=== PATIENT | male | born 1980 | race Caucasian/White ===

== ENCOUNTER 2017-04-10 14:08 | Inpatient (IN) | payer OTHER ==
[2017-04-10] MEDS ORDERED: NACL 0.9% 1000 ML 1,000 ML IV ONE (14:52)
[2017-04-10] MEDS ORDERED: NORMODYNE IV ONE ×2 (14:54→15:21)
--- NOTE | 2017-04-10 15:26 | Emergency Department Report ---
ED Seizure HPI - General Chief Complaint: Seizure Stated Complaint: SEIZURE Time Seen by Provider: 04/10/17 14:52 Source: patient, EMS Mode of arrival: Stretcher Limitations: No Limitations - History of Present Illness Initial Comments: Patient is a 36-year-old male with no known history of seizure here with first time seizure. He presented emergency Department post ictal and combative. The time I evaluated him the patient was somnolent but able to answer questions. He has no complaints currently. He has a small tongue laceration to the left lateral edge of his tongue. His lips appear very dry. He is hypertensive and tachycardic. MD Complaint: seizure -: Sudden Description of Episode: tonic-clonic movement, post-event confusion Seizure History: none Place: home Possible Precipitating Event: other (unknown) Associated Symptoms: denies other symptoms Treatments Prior to Arrival: none - Related Data Home Medications Medication Instructions Recorded Confirmed Last Taken No Known Home Medications [No 04/10/17 04/10/17 Unknown Reported Home Medications] Allergies Allergy/AdvReac Type Severity Reaction Status Date / Time No Known Allergies Allergy Unverified 04/10/17 15:20 ED Review of Systems ROS: Stated complaint: SEIZURE Other details as noted in HPI Constitutional: denies: chills, fever Eyes: denies: eye pain, eye discharge, vision change ENT: denies: ear pain, throat pain Respiratory: denies: cough, shortness of breath, wheezing Cardiovascular: denies: chest pain, palpitations Endocrine: no symptoms reported Gastrointestinal: denies: abdominal pain, nausea, diarrhea Genitourinary: denies: urgency, dysuria Musculoskeletal: denies: back pain, joint swelling, arthralgia Skin: denies: rash, lesions Neurological: denies: headache, weakness, paresthesias Psychiatric: denies: anxiety, depression Hematological/Lymphatic: denies: easy bleeding, easy bruising ED Past Medical Hx - Past Medical History Previous Medical History?: No - Surgical History Past Surgical History?: No - Social History Smoking Status: Current Every Day Smoker Substance Use Type: Marijuana - Medications Home Medications: Home Medications Medication Instructions Recorded Confirmed Last Taken Type No Known Home Medications [No 04/10/17 04/10/17 Unknown History Reported Home Medications] ED Physical Exam - General Limitations: No Limitations General appearance: alert, in no apparent distress - Head Head exam: Present: atraumatic, normocephalic - Eye Eye exam: Present: normal appearance - ENT ENT exam: Present: mucous membranes dry, other (left lateral tongue laceration) - Neck Neck exam: Present: normal inspection - Respiratory Respiratory exam: Present: normal lung sounds bilaterally. Absent: respiratory distress - Cardiovascular Cardiovascular Exam: Present: normal rhythm, tachycardia. Absent: systolic murmur, diastolic murmur, rubs, gallop - GI/Abdominal GI/Abdominal exam: Present: soft. Absent: tenderness, guarding, rebound - Rectal Rectal exam: Present: deferred - Extremities Exam Extremities exam: Present: normal inspection - Back Exam Back exam: Present: normal inspection - Neurological Exam Neurological exam: Present: alert (somnolent but will answer questions). Absent : oriented X3 (oriented 2) - Psychiatric Psychiatric exam: Present: normal affect, normal mood - Skin Skin exam: Present: warm, dry, intact, normal color. Absent: rash ED Course Vital Signs 04/10/17 04/10/17 15:06 15:55 Temperature 97.6 F Pulse Rate 89 100 H Respiratory 18 Rate Blood Pressure 211/155 236/156 O2 Sat by Pulse 95 Oximetry ED Medical Decision Making - Lab Data Result diagrams: 04/10/17 15:11 04/10/17 15:11 - EKG Data -: EKG Interpreted by Nd - EKG Data 04/10/17 15:25 Sinus rhythm rate of 98 normal axis prolonged QTC of 518 likely LVH - Medical Decision Making Patient is a young 36-year-old with no medical history here with first-time seizure. He presents significant with significant hypertension. He is resolving his postictal status right now. Plan head CT labs chest x-ray and urinalysis and we'll reassess. Patient has a normal head CT. His blood pressure remains minimally elevated. He is received 2 doses of IV labetalol with mild improvement. His creatinine is 4.6 and he has no evidence or history of chronic renal insufficiency according to the patient. He is not taking any blood pressure medications. Plan is to admit the patient for hypertensive encephalopathy and emergency. Plan to start a Cardene drip. I discussed the case with Dr. Dee from nephrology. They will see the patient in consult. Critical Care Time: Yes (60 minutes) Critical care time in (mins) excluding proc time.: 60 Critical care attestation.: If time is entered above; I have spent that time in minutes in the direct care of this critically ill patient, excluding procedure time. ED Disposition Clinical Impression: Hypertensive emergency, Seizure Disposition: -09 OP ADMIT IP TO THIS HOSP Is pt being admited?: Yes Condition: Stable Instructions: Hypertension (ED) Referrals: PRIMARY CARE, [Primary Care Provider] - 3-5 Days
[2017-04-10 15:39] LABS: Hemoglobin 10.8 gm/dl (11.8-15.2); Mean Corpuscular HGB Conc 33 % (32-34); Mean Corpuscular Hemoglobin 26 pg (28-32); Mean Corpuscular Volume 79 fl (84-94); Red Blood Count 4.16 M/mm3 (3.65-5.03); Red Cell Distribution Width 16.4 % (13.2-15.2); White Blood Count 4.2 K/mm3 (4.5-11.0)
[2017-04-10 15:45] LABS: Albumin 3.8 g/dL (3.9-5); Albumin/Globulin Ratio 0.8 %; BUN/Creatinine Ratio 7.39; Bilirubin,Total 0.8 mg/dL (0.1-1.2); Calcium 9.3 mg/dL (8.4-10.2); Chloride 100.5 mmol/L (98-107); Potassium 3.2 mmol/L (3.6-5.0); Total Protein 8.8 g/dL (6.3-8.2)
[2017-04-10 16:15] LABS: Platelet Count 69 K/mm3 (140-440)
[2017-04-10 16:35] LABS: Basophils % (Manual) 0 % (0.0-1.8); Blastocytes % (Manual) 0 %
[2017-04-10 16:36] LABS: Anisocytosis 1+; Diff Status Complete; Elliptocytes 1+; Platelet Estimate Consistent w Auto
--- NOTE | 2017-04-10 17:56 | Cat Scan Report ---
FINAL REPORT PROCEDURE: CT HEAD/BRAIN WO CON TECHNIQUE: Computerized tomography of the head was performed without contrast material. HISTORY: Seizure COMPARISON: No prior studies are available for comparison. FINDINGS: Mild changes of chronic sinusitis are seen. No calvarial fracture is seen. The cerebral ventricles are normal in size. No acute intracranial hemorrhage or mass effect is seen. No CVA is seen. IMPRESSION: No intracranial abnormality is seen.
[2017-04-10] MEDS ORDERED: DULCOLAX PR PRN (18:03)
[2017-04-10] MEDS ORDERED: MILK OF MAGNESIA PO PRN (18:03)
[2017-04-10] MEDS ORDERED: ALUM-MAG HYDROX-SIMETH 200-200-20MG/5ML PO PRN (18:03)
[2017-04-10] MEDS ORDERED: DUONEB *Not for PRN Use IH (18:03)
[2017-04-10] MEDS ORDERED: PROVENTIL IH PRN (18:26)
--- NOTE | 2017-04-10 18:39 | Admit Criteria Form ---
Admission Criteria Documentation: HYPERTENSION Clinical Indications for Admission to Inpatient Care ( atka/check or initial the applicable condition/criteria) Admission is indicated for 1 or more of the following(1)(2)(3)(4)(5)(6)(7)(8)(9) (10): [X ]I. Hypertensive emergency, with evidence of acute and progressing target organ disease as indicated by 1 or more of the following: [ ]a) Hypertensive encephalopathy (e.g., confusion, altered mental status) (11) [ ]b) Cerebral infarction [ ]c) Intracranial hemorrhage [ ]d) Myocardial ischemia or infarction [ ]e) Heart failure (eg. Pulmonary edema) [ ]f) Aortic dissection [ ]g) Increased creatinine (new) with reduction of more than 50% in estimated glomerular filtration rate from baseline [X ]h) Seizure [ ]i) Papilledema [ ]j) Retinal hemorrhage [ ]k) Microangiopathic hemolytic anemia [ ]l) Other significant finding secondary to hypertension [ ]II. Adrenergic or sympathomimetic crisis (e.g., severe hypertension due to pheochromocytoma crisis, cocaine, phencyclindine, or amphetamine intoxication, or clonidine withdrawal) [ ]III. Severe hypertension (SBP greater than 180 mmHg or DBP greater than 110 mmHg or greater than the 95th percentile for age, gender, and height in pediatric patients) that cannot be controlled (e.g., to SBP less than 160 mmHg and DBP less than 100 mmHg in adults) by treatment with oral medication in emergency department or observation care (12) Extended stay beyond goal length of staymay be needed for(21)(22): [ ]a) Persistent hypertensive encephalopathy [ ]b) Continuation of pulmonary edema [ ]c) Recurring or persistent severe hypertension [ ]d) Target organ damage (eg, angina, stroke, aortic dissection) The original [employer] content created by [employer] has been revised. The portions of the content which have been revised are identified through the use of italic text or in bold, and [employer] has neither reviewed nor approved the modified material. All other unmodified content is copyright [employer]. Please see references footnoted in the original [employer] edition 2016 Admission Criteria Met: Yes
[2017-04-10] MEDS: CARDENE 50 MG in NACL 0.9% 250ML 230 ML IV SCH (18:55)
--- NOTE | 2017-04-10 19:17 | History and Physical Report ---
History of Present Illness Date of admission: 04/10/17 18:53 Chief complaint: I had a seizure History of present illness: 36 YO Male with HTN, Nicotine Dependence presents to ED for evaluation. Pt experienced a witnessed seizure prior to transport to ED as per patient . Pt denies history of seizure. Pt seen and evaluated in ED and found to be confused and lethargic. Pt able to protect his airway. Pt found to have BP of 235/156. Pt admitted to ICU and cardene drip initiated. Pt deny reports of fever, chills, CP, Palpitations, NVD, Trauma, bowel/bladder incontinence, difficulty breathing, productive cough, leg swelling, calf pain, prolonged immobility/travel, individual/family history of DVT/PE. Past History Past Medical History: hypertension Past Surgical History: No surgical history, Other (reviewed) Social history: , lives with family Family history: no significant family history, other (reviewed) Medications and Allergies Allergies Allergy/AdvReac Type Severity Reaction Status Date / Time No Known Allergies Allergy Unverified 04/10/17 15:20 Home Medications Medication Instructions Recorded Confirmed Last Taken Type No Known Home Medications [No 04/10/17 04/10/17 Unknown History Reported Home Medications] Active Meds: Active Medications Al Hydrox/Mg Hydrox/Simethicone (Alum-Mag Hydrox-Simeth [id number]/5ml) 30 ml PO Q4H PRN PRN Reason: Indigestion Albuterol (Proventil) 2.5 mg IH Q4H PRN PRN Reason: Shortness Of Breath Bisacodyl (Dulcolax) 10 mg [place] QDAY PRN PRN Reason: constipation unrelieved by MOM Nicardipine HCl 50 mg/ Sodium (Chloride) 250 mls @ 12.5 mls/hr IV TITR ROSIE; 2.5 MG/HR PRN Reason: Protocol Last Admin: 04/10/17 18:55 Dose: 2.5 mg/hr, 12.5 mls/hr Magnesium Hydroxide (Milk Of Magnesia) 30 ml PO Q4H PRN PRN Reason: Constipation Review of Systems All systems: negative Constitutional: other (seizure) Exam - Constitutional Vitals: Temp Pulse Resp BP Pulse Ox 97.6 F 100 H 18 236/156 95 04/10/17 15:06 04/10/17 15:55 04/10/17 15:06 04/10/17 15:55 04/10/17 15:06 General appearance: Present: mild distress - EENT Eyes: Present: PERRL ENT: hearing intact, clear oral mucosa - Neck Neck: Present: supple, normal ROM - Respiratory Respiratory effort: normal Respiratory: bilateral: CTA - Extremities Extremities: pulses symmetrical, No edema Peripheral Pulses: within normal limits - Abdominal General gastrointestinal: Present: soft, non-tender, non-distended, normal bowel sounds Male genitourinary: Present: normal - Integumentary Integumentary: Present: clear, warm, dry - Musculoskeletal Musculoskeletal: generalized weakness - Psychiatric Psychiatric: no intact judgment & insight - Neurologic Neurologic: CNII-XII intact, other (cognitive slowing, lethargic) Results - Labs CBC & Chem 7: 04/10/17 15:11 04/10/17 15:11 Assessment and Plan - Patient Problems (1) Hypertensive emergency Current Visit: Yes Status: Acute Plan to address problem: Admit to ICU, Initiate cardene drip, Goal systolic BP overnight 160-185, monitor uop q shift, neuro checks, supportive care. The high probability of a clinically significant, sudden or life threatening deterioration of the [cardiac, renal] system(s) required my full and direct attention, intervention and personal management. The aggregate critical care time was [65] minutes. This time is in addition to time spent performing reported procedures but includes the following: [x] Data Review and interpretation [x] Patient assessment and monitoring of vital signs [x] Documentation [x] Medication orders and management (2) Hypertensive encephalopathy syndrome Current Visit: Yes Status: Acute Plan to address problem: CT head, treat hypertensive emergency, supportive care. (3) ARF (acute renal failure) with tubular necrosis Current Visit: Yes Status: Acute Plan to address problem: Nephrology consulted in ED, Urine electrolytes, renal ultrasound (4) Nicotine dependence Current Visit: Yes Status: Acute Qualifiers: Nicotine product type: N Substance use status: S Plan to address problem: Pt counseled, Pt refused to pick quit date (5) Seizure Current Visit: Yes Status: Acute Plan to address problem: Continue current therapy, keppra BID, (6) DVT prophylaxis Current Visit: Yes Status: Acute
[2017-04-10 20:15] LABS: Urine Drugs of Abuse Note Disclamer
[2017-04-10] MEDS: KEPPRA PO SCH ×2 (20:18→22:10)
[2017-04-10] MEDS ORDERED: KEPPRA PO ONE (20:20)
[2017-04-10 20:38] LABS: Bilirubin,Urine NEG (Negative); Blood,Urine SM (Negative); Ketones,Urine NEG (Negative); Leukocyte Esterase,Urine MOD (Negative); Mucus,Urine FEW /HPF; Nitrite,Urine NEG (Negative); Urobilinogen,Urine < 2.0 mg/dL (<2.0)
[2017-04-11 08:36] LABS: BUN/Creatinine Ratio 8.04; Calcium 9.8 mg/dL (8.4-10.2); Chloride 100.7 mmol/L (98-107); Potassium 3.2 mmol/L (3.6-5.0)
--- NOTE | 2017-04-11 08:39 | Consultation ---
History of Present Illness - Reason for Consult Consult date: 04/11/17 acute renal failure - History of Present Illness Mr. Cao is a 36yo without past medical history who presented to the ED with seizure activity. In the ED, his blood pressure was 230s/110s. Labs were notable for SCr 4.6mg/dL. He has been admitted to the ICU for further management. Mr. Cao denies a prior history of kidney disease and hypertension. He was last seen by a health care provider approximately one year ago. However, he reports that labs were not collected at that time. He denies a prior history of seizure disorder. Family history notable for hypertension; he denies family hx of kidney disease, NSAID use, epistaxis, hemotypsis, hematuria. Past History Past Medical History: No medical history Past Surgical History: No surgical history, Other (reviewed) Social history: , lives with family Family history: no significant family history, other (reviewed) Medications and Allergies Allergies Allergy/AdvReac Type Severity Reaction Status Date / Time No Known Allergies Allergy Unverified 04/10/17 15:20 Home Medications Medication Instructions Recorded Confirmed Last Taken Type No Known Home Medications [No 04/10/17 04/10/17 Unknown History Reported Home Medications] Active Meds: Active Medications Albuterol (Proventil) 2.5 mg IH Q4H PRN PRN Reason: Shortness Of Breath Bisacodyl (Dulcolax) 10 mg [place] QDAY PRN PRN Reason: constipation unrelieved by MOM Nicardipine HCl 50 mg/ Sodium (Chloride) 250 mls @ 12.5 mls/hr IV TITR ROSIE; 2.5 MG/HR PRN Reason: Protocol Last Titration: 04/11/17 06:04 Dose: 5 mg/hr, 25 mls/hr Levetiracetam (Keppra) 500 mg PO BID ROSIE Last Admin: 04/10/17 22:10 Dose: 500 mg Review of Systems Constitutional: no fever, no chills, no sweats Cardiovascular: no chest pain, no shortness of breath Respiratory: no cough Gastrointestinal: no abdominal pain, no nausea, no vomiting, no diarrhea Neurological: seizures Exam - Vital Signs Vital signs: Vital Signs Pulse Resp Pulse Ox 95 H 38 H 93 04/10/17 14:30 04/10/17 14:30 04/10/17 14:30 - General Appearance General appearance: well-developed, well-nourished EENT: ATNC Respiratory: Clear to Ascultation Heart: regular, S1S2 Gastrointestinal: Present: normal. Absent: tenderness, distended Integumentary: no rash Musculoskeletal: Present: other (no edema) Psychiatric: mood/affect appropriate, cooperative Results - Lab Results 04/10/17 15:11 04/11/17 07:54 Most recent lab results Calcium 9.8 mg/dL (8.4-10.2) 04/11/17 07:54 Urine Creatinine 184.1 mg/dL (0.1-20.0) H 04/10/17 20:04 Urine Sodium 49 mEq/L 04/10/17 20:04 Assessment and Plan IMPRESSION * Acute kidney injury vs underlying chronic kidney disease * Seizure disorder, new onset * Accelerated hypertension * Hypokalemia PLAN: * Cardene gtt per primary team * Will start oral antiHTN medications * Renal u/s pending * Will obtain renin:ricky * Obtain serologic work up * 24h urine CrCl and protein ordered * Avoid potential nephrotoxins. Dose medications for renal function
--- NOTE | 2017-04-11 08:41 | XRay Report ---
ROUTINE CHEST, TWO VIEWS: Hypertension, seizures. PA and lateral views demonstrate the heart and mediastinal contour to be of normal size and shape. The lungs are clear and fully expanded and the soft tissues and bony structures are normal. IMPRESSION: Normal study.
--- NOTE | 2017-04-11 09:03 | Consultation ---
History of Present Illness - Reason for Consult Consult date: 04/11/17 Hypertensive Emergency Requesting physician: ARRON RIVERA - History of Present Illness 36 y/o male, presented to ED with Emergency room with seizure. Found to be hypertensive. STarted on cardene drip and transferred to the unit. Past History Past Medical History: hypertension Past Surgical History: No surgical history, Other (reviewed) Social history: , lives with family Family history: no significant family history, other (reviewed) Medications and Allergies Allergies Allergy/AdvReac Type Severity Reaction Status Date / Time No Known Allergies Allergy Unverified 04/10/17 15:20 Home Medications Medication Instructions Recorded Confirmed Last Taken Type No Known Home Medications [No 04/10/17 04/10/17 Unknown History Reported Home Medications] Active Meds: Active Medications Albuterol (Proventil) 2.5 mg IH Q4H PRN PRN Reason: Shortness Of Breath Bisacodyl (Dulcolax) 10 mg [place] QDAY PRN PRN Reason: constipation unrelieved by MOM Carvedilol (Coreg) 12.5 mg PO BID ROSIE Hydralazine HCl (Apresoline) 25 mg PO Q8HR ROSIE Nicardipine HCl 50 mg/ Sodium (Chloride) 250 mls @ 12.5 mls/hr IV TITR ROSIE; 2.5 MG/HR PRN Reason: Protocol Last Titration: 04/11/17 06:04 Dose: 5 mg/hr, 25 mls/hr Levetiracetam (Keppra) 500 mg PO BID [facility] Last Admin: 04/10/17 22:10 Dose: 500 mg Nifedipine (Procardia Xl) 60 mg PO QDAY ROSIE Review of Systems All systems: negative Exam - Constitutional Vitals: Temp Pulse Resp BP Pulse Ox 98.3 F 85 20 220/121 94 04/11/17 08:00 04/11/17 03:00 04/11/17 03:00 04/11/17 03:00 04/11/17 03:00 General appearance: Present: no acute distress - EENT Eyes: Present: PERRL, EOM intact ENT: hearing intact, clear oral mucosa - Neck Neck: Present: supple, normal ROM - Respiratory Respiratory effort: normal Respiratory: bilateral: CTA - Cardiovascular Rhythm: regular Heart Sounds: Present: S1 & S2 - Extremities Extremities: no ischemia - Abdominal General gastrointestinal: Present: soft, non-tender, normal bowel sounds Male genitourinary: Present: deferred - Rectal Rectal Exam: deferred - Musculoskeletal Musculoskeletal: strength equal bilaterally - Psychiatric Psychiatric: appropriate mood/affect Results - Labs CBC & Chem 7: 04/10/17 15:11 04/11/17 07:54 Labs: Abnormal lab results 04/10/17 04/10/17 04/11/17 Range/Units 20:04 20:04 07:54 Potassium 3.2 L (3.6-5.0) mmol/L BUN 33 H (9-20) mg/dL Creatinine 4.1 H (0.8-1.5) mg/dL Glucose 101 H (75-100) mg/dL Urine pH 8.0 H (5.0-7.0) Urine WBC (Auto) 19.0 H (0.0-6.0) /HPF Urine Creatinine 184.1 H (0.1-20.0) mg/dL - Imaging and Cardiology Chest x-ray: image reviewed CT Scan - head: report reviewed Assessment and Plan 36 y/o male with hypertensive Emergency and acute vs chronic renal failure. 1. Agree with Cardene drip and starting PO medication 2. Follow up renal recs 3. Follow up renal ultrasound 4. Screening for causes of secondary hypertension. CCT 31 minutes.
--- NOTE | 2017-04-11 10:00 | Ultrasound Report ---
Renal ultrasound: Renal failure. The right renal length is 11.1 cm and the left renal length is 10 cm. The parenchyma of both kidneys appears normal in thickness. Both kidneys appear generally echogenic. No focal mass and no hydronephrosis nor calcification identified.Imaging of the urinary bladder is unremarkable. Impression: Echogenic kidneys consistent with medical renal disease.
[2017-04-11] MEDS: COREG PO SCH ×2 (10:36→22:02)
[2017-04-11] MEDS: PROCARDIA XL PO SCH (10:36)
[2017-04-11] MEDS: APRESOLINE PO SCH ×3 (10:36→22:02)
[2017-04-11] MEDS: CARDENE 50 MG in NACL 0.9% 250ML 230 ML IV SCH (10:37)
[2017-04-11] MEDS: KEPPRA PO SCH ×2 (10:37→22:01)
[2017-04-11] MEDS ORDERED: ZOFRAN ONE (10:47)
[2017-04-11] MEDS ORDERED: ZOFRAN IV PRN (10:50)
[2017-04-11] MEDS ORDERED: TYLENOL PO PRN (11:57)
[2017-04-11] MEDS ORDERED: HEPARIN SUB-Q SCH (13:00)
--- NOTE | 2017-04-11 14:32 | Progress Note ---
Assessment and Plan Assessment and plan: Patient's 36-year-old man with a history of hypertension and tobacco dependency who presents with altered mental status and new-onset seizures witnessed by sister. He denies etoh. He was found to have bp 235/156 HR 98. He was also found Cr 4.6. CT head read as no acute abnormality seen. -Acute encephalopathy due to seizure disorder resolved. -Seizure disorder with status epilepticus: Consulted neurology, on Keppra, ordered EEG -Malignant hypertension with encephalopathy: On IV Cardene in ICU -Acute renal failure, vasomotor nephropathy: Renal is following, renal u/s pending -Thrombocytopenia and leukopenia: check HIV, counseling done and pt ok'd testing -Hypokalemia: Replace and renal is following History Interval history: Patient seen and examined. Follow up on seizures. Overnight uneventful. No cp, sob. Imaging, old records, testing, labs, nursing notes reviewed. He complains of headache behind his right eye with nausea but no vomiting or abdominal pain. Hospitalist Physical - Physical exam Narrative exam: GEN: WDWN, bmi 30.5 NAD, AWAKE, ALERT, ORIENTATED x 3 HEENT: NCAT, PERRL, EOMI, OP CLEAR but lips dry NECK: SUPPLE, NO THYROMEGALY, NO JVD, NO LAD CVS: RRR, NORMAL S1S2 LUNGS/CHEST: CTA B, NORMAL CHEST EXPANSION B, GOOD AIR ENTRY B ABD: SOFT, NTND, GBS, NO REBOUND OR GUARDING EXT/SKIN: NO SIGNIFICANT EDEMA OR RASH MSK: FROM X 4 EXTREMITIES NEURO: CN 2-12 GROSSLY INTACT, NO FOCAL DEFICITS PSY: CALM - Constitutional Vitals: Temp Pulse Resp BP Pulse Ox 98.4 F 94 H 20 157/83 94 04/11/17 12:33 04/11/17 10:36 04/11/17 03:00 04/11/17 14:11 04/11/17 03:00 General appearance: Present: no acute distress Results - Labs CBC & Chem 7: 04/10/17 15:11 04/11/17 07:54 Labs: Laboratory Last Values WBC 4.2 K/mm3 (4.5-11.0) L 04/10/17 15:11 RBC 4.16 M/mm3 (3.65-5.03) 04/10/17 15:11 Hgb 10.8 gm/dl (11.8-15.2) L 04/10/17 15:11 Hct 33.0 % (35.5-45.6) L 04/10/17 15:11 MCV 79 fl (84-94) L 04/10/17 15:11 MCH 26 pg (28-32) L 04/10/17 15:11 MCHC 33 % (32-34) 04/10/17 15:11 RDW 16.4 % (13.2-15.2) H 04/10/17 15:11 Plt Count 69 K/mm3 (140-440) L 04/10/17 15:11 Add Manual Diff Complete 04/10/17 15:11 Total Counted 100 04/10/17 15:11 Seg Neuts % (Manual) 84.0 % (40.0-70.0) H 04/10/17 15:11 Band Neutrophils % 5.0 % 04/10/17 15:11 Lymphocytes % (Manual) 3.0 % (13.4-35.0) L 04/10/17 15:11 Reactive Lymphs % (Man) 1.0 % 04/10/17 15:11 Monocytes % (Manual) 6.0 % (0.0-7.3) 04/10/17 15:11 Eosinophils % (Manual) 1.0 % (0.0-4.3) 04/10/17 15:11 Basophils % (Manual) 0 % (0.0-1.8) 04/10/17 15:11 Metamyelocytes % 0 % 04/10/17 15:11 Myelocytes % 0 % 04/10/17 15:11 Promyelocytes % 0 % 04/10/17 15:11 Blast Cells % 0 % 04/10/17 15:11 Nucleated RBC % Not Reportable 04/10/17 15:11 Seg Neutrophils # Man 3.5 K/mm3 (1.8-7.7) 04/10/17 15:11 Band Neutrophils # 0.2 K/mm3 04/10/17 15:11 Lymphocytes # (Manual) 0.1 K/mm3 (1.2-5.4) L 04/10/17 15:11 Abs React Lymphs (Man) 0.0 K/mm3 04/10/17 15:11 Monocytes # (Manual) 0.3 K/mm3 (0.0-0.8) 04/10/17 15:11 Eosinophils # (Manual) 0.0 K/mm3 (0.0-0.4) 04/10/17 15:11 Basophils # (Manual) 0.0 K/mm3 (0.0-0.1) 04/10/17 15:11 Metamyelocytes # 0.0 K/mm3 04/10/17 15:11 Myelocytes # 0.0 K/mm3 04/10/17 15:11 Promyelocytes # 0.0 K/mm3 04/10/17 15:11 Blast Cells # 0.0 K/mm3 04/10/17 15:11 WBC Morphology Not Reportable 04/10/17 15:11 Hypersegmented Neuts Not Reportable 04/10/17 15:11 Hyposegmented Neuts Not Reportable 04/10/17 15:11 Hypogranular Neuts Not Reportable 04/10/17 15:11 Smudge Cells Not Reportable 04/10/17 15:11 Toxic Granulation Not Reportable 04/10/17 15:11 Toxic Vacuolation Not Reportable 04/10/17 15:11 Dohle Bodies Not Reportable 04/10/17 15:11 Pelger-Huet Anomaly Not Reportable 04/10/17 15:11 [place] Rods Not Reportable 04/10/17 15:11 Platelet Estimate Consistent w auto 04/10/17 15:11 Clumped Platelets Not Reportable 04/10/17 15:11 Plt Clumps, EDTA Not Reportable 04/10/17 15:11 Large Platelets Not Reportable 04/10/17 15:11 Giant Platelets Not Reportable 04/10/17 15:11 Platelet Satelliting Not Reportable 04/10/17 15:11 Plt Morphology Comment Not Reportable 04/10/17 15:11 RBC Morphology Not Reportable 04/10/17 15:11 Dimorphic RBCs Not Reportable 04/10/17 15:11 Polychromasia Not Reportable 04/10/17 15:11 Hypochromasia Not Reportable 04/10/17 15:11 Poikilocytosis Not Reportable 04/10/17 15:11 Anisocytosis 1+ 04/10/17 15:11 Microcytosis Not Reportable 04/10/17 15:11 Macrocytosis Not Reportable 04/10/17 15:11 Spherocytes Not Reportable 04/10/17 15:11 Pappenheimer Bodies Not Reportable 04/10/17 15:11 Sickle Cells Not Reportable 04/10/17 15:11 Target Cells Not Reportable 04/10/17 15:11 Tear Drop Cells Not Reportable 04/10/17 15:11 Ovalocytes Not Reportable 04/10/17 15:11 Helmet Cells Not Reportable 04/10/17 15:11 [place] Bodies Not Reportable 04/10/17 15:11 [place] Rings Not Reportable 04/10/17 15:11 [place] Cells Not Reportable 04/10/17 15:11 Bite Cells Not Reportable 04/10/17 15:11 Crenated Cell Not Reportable 04/10/17 15:11 Elliptocytes 1+ 04/10/17 15:11 Acanthocytes (Spur) Not Reportable 04/10/17 15:11 Rouleaux Not Reportable 04/10/17 15:11 Hemoglobin C Crystals Not Reportable 04/10/17 15:11 Schistocytes Not Reportable 04/10/17 15:11 Malaria parasites Not Reportable 04/10/17 15:11 [place] Bodies Not Reportable 04/10/17 15:11 Hem Pathologist Commnt No 04/10/17 15:11 D-Dimer 1139.84 ng/mlDDU (0-234) H 04/10/17 16:55 Sodium 145 mmol/L (137-145) 04/11/17 07:54 Potassium 3.2 mmol/L (3.6-5.0) L 04/11/17 07:54 Chloride 100.7 mmol/L (98-107) 04/11/17 07:54 Carbon Dioxide 28 mmol/L (22-30) 04/11/17 07:54 Anion Gap 20 mmol/L 04/11/17 07:54 BUN 33 mg/dL (9-20) H 04/11/17 07:54 Creatinine 4.1 mg/dL (0.8-1.5) H 04/11/17 07:54 Estimated GFR 17 ml/min 04/11/17 07:54 BUN/Creatinine Ratio 8.04 % 04/11/17 07:54 Glucose 101 mg/dL (75-100) H 04/11/17 07:54 Calcium 9.8 mg/dL (8.4-10.2) 04/11/17 07:54 Total Bilirubin 0.80 mg/dL (0.1-1.2) 04/10/17 15:11 AST 33 units/L (5-40) 04/10/17 15:11 ALT 10 units/L (7-56) 04/10/17 15:11 Alkaline Phosphatase 39 units/L (35-129) 04/10/17 15:11 Troponin T 0.024 ng/mL (0.00-0.029) 04/10/17 15:11 Total Protein 8.8 g/dL (6.3-8.2) H 04/10/17 15:11 Albumin 3.8 g/dL (3.9-5) L 04/10/17 15:11 Albumin/Globulin Ratio 0.8 % 04/10/17 15:11 Urine Color Yellow (Yellow) 04/10/17 20:04 Urine Turbidity Clear (Clear) 04/10/17 20:04 Urine pH 8.0 (5.0-7.0) H 04/10/17 20:04 Ur Specific [place] 1.013 (1.003-1.030) 04/10/17 20:04 Urine Protein 100 mg/dl mg/dL (Negative) 04/10/17 20:04 Urine Glucose (UA) Neg mg/dL (Negative) 04/10/17 20:04 Urine Ketones Neg mg/dL (Negative) 04/10/17 20:04 Urine Blood Sm (Negative) 04/10/17 20:04 Urine Nitrite Neg (Negative) 04/10/17 20:04 Urine Bilirubin Neg (Negative) 04/10/17 20:04 Urine Urobilinogen < 2.0 mg/dL (<2.0) 04/10/17 20:04 Ur Leukocyte Esterase Mod (Negative) 04/10/17 20:04 Urine WBC (Auto) 19.0 /HPF (0.0-6.0) H 04/10/17 20:04 Urine RBC (Auto) 4.0 /HPF (0.0-6.0) 04/10/17 20:04 U Epithel Cells (Auto) 1.0 /HPF (0-13.0) 04/10/17 20:04 Urine Mucus Few /HPF 04/10/17 20:04 Urine Creatinine 184.1 mg/dL (0.1-20.0) H 04/10/17 20:04 Urine Sodium 49 mEq/L 04/10/17 20:04 Urine Opiates Screen Presumptive negative 04/10/17 20:04 Urine Methadone Screen Presumptive negative 04/10/17 20:04 Ur Barbiturates Screen Presumptive negative 04/10/17 20:04 Ur Phencyclidine Scrn Presumptive negative 04/10/17 20:04 Ur Amphetamines Screen Presumptive negative 04/10/17 20:04 U Benzodiazepines Scrn Presumptive positive 04/10/17 20:04 Urine Cocaine Screen Presumptive negative 04/10/17 20:04 U Marijuana (THC) Screen Presumptive positive 04/10/17 20:04 Drugs of Abuse Note Disclamer 04/10/17 20:04
[2017-04-11 16:15] LABS: HIV-1 Antigen p24 Non React (Non React)
[2017-04-11 16:28] LABS: HIVR-1/2 Ab Reactive (Non React)
[2017-04-12] MEDS: APRESOLINE PO SCH ×3 (06:13→21:20)
[2017-04-12] MEDS: KEPPRA PO SCH ×2 (10:15→21:20)
[2017-04-12] MEDS: COREG PO SCH ×2 (10:15→21:20)
--- NOTE | 2017-04-12 10:29 | Progress Note ---
Subjective Interval history: Patient was seen today for follow-up on multiple renal related issues Events noted No acute distress Vitals labs intake output medications reviewed Social history: Reviewed Family history: Reviewed Physical examination Vitals: Reviewed HEENT: Oral mucosa moist Neck: Supple no JVD Chest: Clear to auscultation no crackles Heart: Regular rate and rhythm S1 and S2 heard Abdomen: Soft nontender bowel sounds present Extremity: Mild edema dry skin Dermatology; dry skin Psychiatry: No evidence of agitation or aggression Assessment and plan; Renal failure in a patient who is 36-year-old admitted with uncontrolled hypertension and advanced renal failure Patient's urine output is quite good, needs better control of hypertension follow-up renal function and 24-hour studies results Patient does appear to have echogenic kidney suggestive of chronic kidney disease There is mild improvement in his creatinine from 4.6-4.1 Patient has been noted to be hypokalemic with hypertension with advanced renal failure likely he has secondary hypertension we'll check for aldosterone and plasma renin level Will like to start Aldactone trial for now Urinalysis suggestive of no blood 100 mg protein Likely hypertensive nephropathy follow-up on the serology 24-hour urine for creatinine and creatinine clearance and protein No acute or emergent indication for renal replacement therapy Patient has been adequately counseled regarding renal related issues Periodically monitor renal related labs We'll continue to follow and make recommendation from renal standpoin Objective - Vital Signs Vital signs: Vital Signs - 12hr 04/11/17 04/11/17 04/11/17 22:30 22:45 23:00 Temperature Pulse Rate 76 90 79 Respiratory 16 20 27 H Rate Blood Pressure 165/107 181/88 165/109 04/11/17 04/11/17 04/11/17 23:15 23:30 23:45 Temperature Pulse Rate 76 90 92 H Respiratory 19 28 H 15 Rate Blood Pressure 170/107 164/104 170/108 04/11/17 04/12/17 04/12/17 23:59 00:00 00:15 Temperature 98.1 F Pulse Rate 86 74 Respiratory 22 27 H Rate Blood Pressure 163/101 171/98 04/12/17 04/12/17 04/12/17 00:30 00:45 01:00 Temperature Pulse Rate 78 81 71 Respiratory 26 H 26 H 22 Rate Blood Pressure 169/91 164/96 150/87 04/12/17 04/12/17 04/12/17 01:15 01:30 01:45 Temperature Pulse Rate 91 H 87 81 Respiratory 22 19 20 Rate Blood Pressure 150/87 154/98 146/95 04/12/17 04/12/17 04/12/17 02:00 02:15 02:30 Temperature Pulse Rate 84 73 88 Respiratory 19 8 L 13 Rate Blood Pressure 155/102 167/111 158/110 04/12/17 04/12/17 04/12/17 02:45 03:01 03:15 Temperature Pulse Rate 74 75 90 Respiratory 25 H 24 19 Rate Blood Pressure 165/106 165/106 165/106 04/12/17 04/12/17 04/12/17 03:30 03:45 04:00 Temperature 97.9 F Pulse Rate 76 65 Respiratory 15 25 H Rate Blood Pressure 156/111 146/117 04/12/17 04/12/17 04/12/17 04:01 04:15 04:30 Temperature Pulse Rate 86 65 70 Respiratory 23 22 23 Rate Blood Pressure 139/109 160/106 162/107 04/12/17 04/12/17 04/12/17 04:45 05:01 05:15 Temperature Pulse Rate 87 92 H 61 Respiratory 21 16 21 Rate Blood Pressure 167/113 155/98 163/94 04/12/17 04/12/17 04/12/17 05:31 05:45 06:00 Temperature Pulse Rate 85 68 64 Respiratory 19 24 24 Rate Blood Pressure 163/94 159/92 153/85 04/12/17 04/12/17 06:13 08:00 Temperature 98.0 F Pulse Rate 65 Respiratory Rate Blood Pressure 153/85 - Lab 04/10/17 15:11 04/12/17 10:16 Most recent lab results Calcium 9.8 mg/dL (8.4-10.2) 04/11/17 07:54 Urine Creatinine 184.1 mg/dL (0.1-20.0) H 04/10/17 20:04 Urine Sodium 49 mEq/L 04/10/17 20:04
[2017-04-12] MEDS: PROCARDIA XL PO SCH (10:46)
[2017-04-12 10:58] LABS: Hematocrit 33.4 % (35.5-45.6); Hemoglobin 10.9 gm/dl (11.8-15.2); Mean Corpuscular HGB Conc 33 % (32-34); Mean Corpuscular Hemoglobin 26 pg (28-32); Mean Corpuscular Volume 80 fl (84-94); Red Blood Count 4.16 M/mm3 (3.65-5.03); Red Cell Distribution Width 16.6 % (13.2-15.2); White Blood Count 4.7 K/mm3 (4.5-11.0)
[2017-04-12 11:02] LABS: Platelet Count 81 K/mm3 (140-440)
--- NOTE | 2017-04-12 11:02 | Progress Note ---
Assessment and Plan 36 y/o male with hypertensive Emergency and acute vs chronic renal failure. 1. Titrate up PO meds for better systolic and diastolic control 2. Follow up renal recs 3. Stable for transfer out of ICU. 4. Screening for causes of secondary hypertension. 5. Will sign off. Call if questions. Subjective Date of service: 04/12/17 Interval history: No acute events. Off drip. Systolic BP is acceptable, diastolic still fluctuating. Nausea, headache and vomiting have ceased. No labs done today. Ultrasound showing medical renal disease. Remainder is negative. IMS checked HIV, this is negative. Objective - Constitutional Vitals: Vital Signs - 12hr 04/11/17 04/11/17 04/11/17 23:15 23:30 23:45 Temperature Pulse Rate 76 90 92 H Respiratory 19 28 H 15 Rate Blood Pressure 170/107 164/104 170/108 04/11/17 04/12/17 04/12/17 23:59 00:00 00:15 Temperature 98.1 F Pulse Rate 86 74 Respiratory 22 27 H Rate Blood Pressure 163/101 171/98 04/12/17 04/12/17 04/12/17 00:30 00:45 01:00 Temperature Pulse Rate 78 81 71 Respiratory 26 H 26 H 22 Rate Blood Pressure 169/91 164/96 150/87 04/12/17 04/12/17 04/12/17 01:15 01:30 01:45 Temperature Pulse Rate 91 H 87 81 Respiratory 22 19 20 Rate Blood Pressure 150/87 154/98 146/95 04/12/17 04/12/17 04/12/17 02:00 02:15 02:30 Temperature Pulse Rate 84 73 88 Respiratory 19 8 L 13 Rate Blood Pressure 155/102 167/111 158/110 04/12/17 04/12/17 04/12/17 02:45 03:01 03:15 Temperature Pulse Rate 74 75 90 Respiratory 25 H 24 19 Rate Blood Pressure 165/106 165/106 165/106 04/12/17 04/12/17 04/12/17 03:30 03:45 04:00 Temperature 97.9 F Pulse Rate 76 65 Respiratory 15 25 H Rate Blood Pressure 156/111 146/117 04/12/17 04/12/17 04/12/17 04:01 04:15 04:30 Temperature Pulse Rate 86 65 70 Respiratory 23 22 23 Rate Blood Pressure 139/109 160/106 162/107 04/12/17 04/12/17 04/12/17 04:45 05:01 05:15 Temperature Pulse Rate 87 92 H 61 Respiratory 21 16 21 Rate Blood Pressure 167/113 155/98 163/94 04/12/17 04/12/17 04/12/17 05:31 05:45 06:00 Temperature Pulse Rate 85 68 64 Respiratory 19 24 24 Rate Blood Pressure 163/94 159/92 153/85 04/12/17 04/12/17 04/12/17 06:13 06:15 06:30 Temperature Pulse Rate 65 94 H 66 Respiratory 22 22 Rate Blood Pressure 153/85 153/85 162/90 04/12/17 04/12/17 04/12/17 06:45 07:00 07:15 Temperature Pulse Rate 77 68 63 Respiratory 19 20 21 Rate Blood Pressure 175/104 173/99 173/104 04/12/17 04/12/17 04/12/17 07:30 07:45 08:00 Temperature 98.0 F Pulse Rate 63 60 65 Respiratory 21 22 22 Rate Blood Pressure 173/103 171/96 153/91 04/12/17 04/12/17 04/12/17 08:15 08:30 08:45 Temperature Pulse Rate 70 69 72 Respiratory 27 H 24 19 Rate Blood Pressure 153/91 157/103 161/89 04/12/17 04/12/17 04/12/17 09:00 09:15 09:30 Temperature Pulse Rate 62 68 73 Respiratory 22 16 12 Rate Blood Pressure 167/88 167/88 166/112 04/12/17 04/12/17 04/12/17 09:45 10:01 10:15 Temperature Pulse Rate 80 83 108 H Respiratory 19 21 20 Rate Blood Pressure 157/115 166/112 158/116 04/12/17 10:30 Temperature Pulse Rate 68 Respiratory 27 H Rate Blood Pressure 155/97 General appearance: Present: no acute distress - EENT Eyes: PERRL, EOM intact ENT: hearing intact, clear oral mucosa - Neck Neck: supple, normal ROM - Respiratory Respiratory effort: normal Respiratory: bilateral: CTA - Breasts Breasts: deferred - Cardiovascular Rhythm: regular Heart Sounds: Present: S1 & S2 - Labs CBC & Chem 7: 04/10/17 15:11 04/11/17 07:54
[2017-04-12 11:03] LABS: BUN/Creatinine Ratio 7.9; Calcium 9.2 mg/dL (8.4-10.2); Chloride 97.9 mmol/L (98-107); Potassium 3.3 mmol/L (3.6-5.0)
--- NOTE | 2017-04-12 14:45 | Progress Note ---
Assessment and Plan Assessment and plan: Patient's 36-year-old man with a history of hypertension and tobacco dependency who presents with altered mental status and new-onset seizures witnessed by sister. He denies etoh. He was found to have bp 235/156 HR 98. He was also found Cr 4.6. CT head read as no acute abnormality seen. -Acute encephalopathy due to seizure disorder resolved. -Seizure disorder with status epilepticus: Consulted neurology, on Keppra, ordered EEG -Malignant hypertension with encephalopathy, off Cardene, will transfer out of ICU -Acute renal failure, vasomotor nephropathy: Renal is following, renal u/s ==>c/ w chronic medical disease -Thrombocytopenia and leukopenia: check HIV, counseling done and pt ok'd testing -Hypokalemia: Replace and renal is following +HIV antibody but negative (-) p24 antigen, await confirmation testing. I reached out to ID also. History Interval history: Patient seen and examined. Follow up on seizures. Overnight uneventful. No cp, sob. Imaging, old records, testing, labs, nursing notes reviewed. He complains of headache behind his right eye with nausea but no vomiting or abdominal pain. Hospitalist Physical - Physical exam Narrative exam: GEN: WDWN, bmi 30.5 NAD, AWAKE, ALERT, ORIENTATED x 3 HEENT: NCAT, PERRL, EOMI, OP CLEAR but lips dry NECK: SUPPLE, NO THYROMEGALY, NO JVD, NO LAD CVS: RRR, NORMAL S1S2 LUNGS/CHEST: CTA B, NORMAL CHEST EXPANSION B, GOOD AIR ENTRY B ABD: SOFT, NTND, GBS, NO REBOUND OR GUARDING EXT/SKIN: NO SIGNIFICANT EDEMA OR RASH MSK: FROM X 4 EXTREMITIES NEURO: CN 2-12 GROSSLY INTACT, NO FOCAL DEFICITS PSY: CALM - Constitutional Vitals: Temp Pulse Resp BP Pulse Ox 98.1 F 70 13 156/107 93 04/12/17 12:00 04/12/17 11:15 04/12/17 11:15 04/12/17 11:15 04/11/17 10:30 General appearance: Present: no acute distress Results - Labs CBC & Chem 7: 04/12/17 10:16 04/12/17 10:16 Labs: Laboratory Last Values WBC 4.7 K/mm3 (4.5-11.0) 04/12/17 10:16 RBC 4.16 M/mm3 (3.65-5.03) 04/12/17 10:16 Hgb 10.9 gm/dl (11.8-15.2) L 04/12/17 10:16 Hct 33.4 % (35.5-45.6) L 04/12/17 10:16 MCV 80 fl (84-94) L 04/12/17 10:16 MCH 26 pg (28-32) L 04/12/17 10:16 MCHC 33 % (32-34) 04/12/17 10:16 RDW 16.6 % (13.2-15.2) H 04/12/17 10:16 Plt Count 81 K/mm3 (140-440) L 04/12/17 10:16 Add Manual Diff Complete 04/10/17 15:11 Total Counted 100 04/10/17 15:11 Seg Neuts % (Manual) 84.0 % (40.0-70.0) H 04/10/17 15:11 Band Neutrophils % 5.0 % 04/10/17 15:11 Lymphocytes % (Manual) 3.0 % (13.4-35.0) L 04/10/17 15:11 Reactive Lymphs % (Man) 1.0 % 04/10/17 15:11 Monocytes % (Manual) 6.0 % (0.0-7.3) 04/10/17 15:11 Eosinophils % (Manual) 1.0 % (0.0-4.3) 04/10/17 15:11 Basophils % (Manual) 0 % (0.0-1.8) 04/10/17 15:11 Metamyelocytes % 0 % 04/10/17 15:11 Myelocytes % 0 % 04/10/17 15:11 Promyelocytes % 0 % 04/10/17 15:11 Blast Cells % 0 % 04/10/17 15:11 Nucleated RBC % Not Reportable 04/10/17 15:11 Seg Neutrophils # Man 3.5 K/mm3 (1.8-7.7) 04/10/17 15:11 Band Neutrophils # 0.2 K/mm3 04/10/17 15:11 Lymphocytes # (Manual) 0.1 K/mm3 (1.2-5.4) L 04/10/17 15:11 Abs React Lymphs (Man) 0.0 K/mm3 04/10/17 15:11 Monocytes # (Manual) 0.3 K/mm3 (0.0-0.8) 04/10/17 15:11 Eosinophils # (Manual) 0.0 K/mm3 (0.0-0.4) 04/10/17 15:11 Basophils # (Manual) 0.0 K/mm3 (0.0-0.1) 04/10/17 15:11 Metamyelocytes # 0.0 K/mm3 04/10/17 15:11 Myelocytes # 0.0 K/mm3 04/10/17 15:11 Promyelocytes # 0.0 K/mm3 04/10/17 15:11 Blast Cells # 0.0 K/mm3 04/10/17 15:11 WBC Morphology Not Reportable 04/10/17 15:11 Hypersegmented Neuts Not Reportable 04/10/17 15:11 Hyposegmented Neuts Not Reportable 04/10/17 15:11 Hypogranular Neuts Not Reportable 04/10/17 15:11 Smudge Cells Not Reportable 04/10/17 15:11 Toxic Granulation Not Reportable 04/10/17 15:11 Toxic Vacuolation Not Reportable 04/10/17 15:11 [place] Bodies Not Reportable 04/10/17 15:11 [place] Anomaly Not Reportable 04/10/17 15:11 Dana Rods Not Reportable 04/10/17 15:11 Platelet Estimate Consistent w auto 04/10/17 15:11 Clumped Platelets Not Reportable 04/10/17 15:11 Plt Clumps, EDTA Not Reportable 04/10/17 15:11 Large Platelets Not Reportable 04/10/17 15:11 Giant Platelets Not Reportable 04/10/17 15:11 Platelet Satelliting Not Reportable 04/10/17 15:11 Plt Morphology Comment Not Reportable 04/10/17 15:11 RBC Morphology Not Reportable 04/10/17 15:11 Dimorphic RBCs Not Reportable 04/10/17 15:11 Polychromasia Not Reportable 04/10/17 15:11 Hypochromasia Not Reportable 04/10/17 15:11 Poikilocytosis Not Reportable 04/10/17 15:11 Anisocytosis 1+ 04/10/17 15:11 Microcytosis Not Reportable 04/10/17 15:11 Macrocytosis Not Reportable 04/10/17 15:11 Spherocytes Not Reportable 04/10/17 15:11 Pappenheimer Bodies Not Reportable 04/10/17 15:11 Sickle Cells Not Reportable 04/10/17 15:11 Target Cells Not Reportable 04/10/17 15:11 Tear Drop Cells Not Reportable 04/10/17 15:11 Ovalocytes Not Reportable 04/10/17 15:11 Helmet Cells Not Reportable 04/10/17 15:11 [place] Bodies Not Reportable 04/10/17 15:11 [place] Rings Not Reportable 04/10/17 15:11 [place] Cells Not Reportable 04/10/17 15:11 Bite Cells Not Reportable 04/10/17 15:11 Crenated Cell Not Reportable 04/10/17 15:11 Elliptocytes 1+ 04/10/17 15:11 Acanthocytes (Spur) Not Reportable 04/10/17 15:11 Rouleaux Not Reportable 04/10/17 15:11 Hemoglobin C Crystals Not Reportable 04/10/17 15:11 Schistocytes Not Reportable 04/10/17 15:11 [place] parasites Not Reportable 04/10/17 15:11 [place] Bodies Not Reportable 04/10/17 15:11 Hem Pathologist Commnt No 04/10/17 15:11 D-Dimer 1139.84 ng/mlDDU (0-234) H 04/10/17 16:55 Sodium 140 mmol/L (137-145) 04/12/17 10:16 Potassium 3.3 mmol/L (3.6-5.0) L 04/12/17 10:16 Chloride 97.9 mmol/L (98-107) L 04/12/17 10:16 Carbon Dioxide 28 mmol/L (22-30) 04/12/17 10:16 Anion Gap 17 mmol/L 04/12/17 10:16 BUN 34 mg/dL (9-20) H 04/12/17 10:16 Creatinine 4.3 mg/dL (0.8-1.5) H 04/12/17 10:16 Estimated GFR 16 ml/min 04/12/17 10:16 BUN/Creatinine Ratio 7.90 % 04/12/17 10:16 Glucose 99 mg/dL (75-100) 04/12/17 10:16 Calcium 9.2 mg/dL (8.4-10.2) 04/12/17 10:16 Total Bilirubin 0.80 mg/dL (0.1-1.2) 04/10/17 15:11 AST 33 units/L (5-40) 04/10/17 15:11 ALT 10 units/L (7-56) 04/10/17 15:11 Alkaline Phosphatase 39 units/L (35-129) 04/10/17 15:11 Troponin T 0.024 ng/mL (0.00-0.029) 04/10/17 15:11 Total Protein 8.8 g/dL (6.3-8.2) H 04/10/17 15:11 Albumin 3.8 g/dL (3.9-5) L 04/10/17 15:11 Albumin/Globulin Ratio 0.8 % 04/10/17 15:11 Urine Color Yellow (Yellow) 04/10/17 20:04 Urine Turbidity Clear (Clear) 04/10/17 20:04 Urine pH 8.0 (5.0-7.0) H 04/10/17 20:04 Ur Specific [place] 1.013 (1.003-1.030) 04/10/17 20:04 Urine Protein 100 mg/dl mg/dL (Negative) 04/10/17 20:04 Urine Glucose (UA) Neg mg/dL (Negative) 04/10/17 20:04 Urine Ketones Neg mg/dL (Negative) 04/10/17 20:04 Urine Blood Sm (Negative) 04/10/17 20:04 Urine Nitrite Neg (Negative) 04/10/17 20:04 Urine Bilirubin Neg (Negative) 04/10/17 20:04 Urine Urobilinogen < 2.0 mg/dL (<2.0) 04/10/17 20:04 Ur Leukocyte Esterase Mod (Negative) 04/10/17 20:04 Urine WBC (Auto) 19.0 /HPF (0.0-6.0) H 04/10/17 20:04 Urine RBC (Auto) 4.0 /HPF (0.0-6.0) 04/10/17 20:04 U Epithel Cells (Auto) 1.0 /HPF (0-13.0) 04/10/17 20:04 Urine Mucus Few /HPF 04/10/17 20:04 Urine Creatinine 184.1 mg/dL (0.1-20.0) H 04/10/17 20:04 Urine Sodium 49 mEq/L 04/10/17 20:04 Urine Opiates Screen Presumptive negative 04/10/17 20:04 Urine Methadone Screen Presumptive negative 04/10/17 20:04 Ur Barbiturates Screen Presumptive negative 04/10/17 20:04 Ur Phencyclidine Scrn Presumptive negative 04/10/17 20:04 Ur Amphetamines Screen Presumptive negative 04/10/17 20:04 U Benzodiazepines Scrn Presumptive positive 04/10/17 20:04 Urine Cocaine Screen Presumptive negative 04/10/17 20:04 U Marijuana (THC) Screen Presumptive positive 04/10/17 20:04 Drugs of Abuse Note Disclamer 04/10/17 20:04 HIV 1&2 Antibody Rapid Reactive (Non React) 04/11/17 14:51 HIV P24 Antigen Non react (Non React) 04/11/17 14:51
[2017-04-12] MEDS: ALDACTONE PO SCH (16:16)
[2017-04-12 20:19] LABS: Myeloperoxidase Antibody <1.0 AI (<1.0)
[2017-04-13] MEDS: APRESOLINE PO SCH ×3 (05:13→22:51)
[2017-04-13] MEDS: ALDACTONE PO SCH ×2 (09:16→22:52)
[2017-04-13] MEDS: PROCARDIA XL PO SCH (09:17)
[2017-04-13] MEDS: COREG PO SCH ×2 (09:17→22:52)
[2017-04-13] MEDS: KEPPRA PO SCH ×2 (09:17→22:51)
--- NOTE | 2017-04-13 10:02 | Progress Note ---
Subjective Interval history: Patient was seen today for follow-up on multiple renal related issues Events noted, alert awake No acute distress Vitals labs intake output medications reviewed Social history: Reviewed Family history: Reviewed Physical examination Vitals: Reviewed HEENT: Oral mucosa moist Neck: Supple no JVD Chest: Clear to auscultation no crackles Heart: Regular rate and rhythm S1 and S2 heard Abdomen: Soft nontender bowel sounds present Extremity: Mild edema dry skin Dermatology; dry skin Psychiatry: No evidence of agitation or aggression Assessment and plan; Renal failure in a patient who is 36-year-old admitted with uncontrolled hypertension Cr Cl 35 2.8 gram protein ? HIVAN to follow Patient's urine output is quite good, needs better control of hypertension follow-up renal function and 24-hour studies results Patient does appear to have echogenic kidney suggestive of chronic kidney disease There is mild improvement in his creatinine from 4.6-4.1 Patient has been noted to be hypokalemic with hypertension with advanced renal failure likely he has secondary hypertension we'll check for aldosterone and plasma renin level Will like to start Aldactone trial for now, BID now incraese coreg No YOUTH LEADER needed Patient has been adequately counseled regarding renal related issues Periodically monitor renal related labs We'll continue to follow and make recommendation from renal standpoin Objective - Vital Signs Vital signs: Vital Signs - 12hr 04/12/17 04/13/17 04/13/17 23:07 01:09 07:32 Temperature 98.2 F 98.8 F 98.6 F Pulse Rate Pulse Rate [ 0 L 0 L 0 L Left Radial] Pulse Rate [ 84 98 H 76 Right Radial] Pulse Rate [ Right] Respiratory 18 18 18 Rate Blood Pressure Blood Pressure 176/114 150/94 146/86 [Right Arm] O2 Sat by Pulse 98 99 100 Oximetry 04/13/17 04/13/17 04/13/17 09:16 09:17 09:54 Temperature 98.7 F Pulse Rate 76 76 Pulse Rate [ Left Radial] Pulse Rate [ 95 H Right Radial] Pulse Rate [ 95 H Right] Respiratory 16 Rate Blood Pressure 186/102 186/102 188/122 Blood Pressure 188/122 [Right Arm] O2 Sat by Pulse 99 Oximetry - Lab 04/12/17 10:16 04/12/17 10:16 Most recent lab results Calcium 9.2 mg/dL (8.4-10.2) 04/12/17 10:16 Urine Creatinine 187.3 mg/dL (0.1-20.0) H 04/12/17 23:10 Ur Total Protein 24 Hr 2820.00 (2-200) H 04/11/17 08:41 Urine Sodium 49 mEq/L 04/10/17 20:04 Urine Total Protein 188 mg/dL (5-11.8) H 04/11/17 08:41
[2017-04-13] MEDS ORDERED: APRESOLINE IV PRN ×2 (11:16→12:15)
--- NOTE | 2017-04-13 12:59 | Progress Note ---
Assessment and Plan Assessment and plan: Patient's 36-year-old man with a history of hypertension and tobacco dependency who presents with altered mental status and new-onset seizures witnessed by sister. He denies etoh. He was found to have bp 235/156 HR 98. He was also found Cr 4.6. CT head read as no acute abnormality seen. -Acute encephalopathy due to seizure disorder resolved. -Seizure disorder with status epilepticus: Consulted neurology, on Keppra, ordered EEG -Malignant hypertension with encephalopathy, off Cardene, will transfer out of ICU -Acute renal failure, vasomotor nephropathy: Renal is following, renal u/s ==>c/ w chronic medical disease -Thrombocytopenia and leukopenia: check HIV, counseling done and pt ok'd testing -Hypokalemia: Replace and renal is following +HIV antibody but negative (-) p24 antigen, await confirmation testing. I reached out to ID also. Ordered HIV RNA 04/13/17: Bp still uncontrolled, I added Imdur to the hydralazine, coreg, aldactone and procardia once HIV RNA comes back (no Pcp to f/u result) and bp improve can d/c home. History Interval history: Patient seen and examined. Follow up on seizures. Overnight uneventful. No cp, sob. Imaging, old records, testing, labs, nursing notes reviewed. He complains of headache behind his right eye with nausea but no vomiting or abdominal pain. Hospitalist Physical - Physical exam Narrative exam: GEN: WDWN, bmi 30.5 NAD, AWAKE, ALERT, ORIENTATED x 3 HEENT: NCAT, PERRL, EOMI, OP CLEAR but lips dry NECK: SUPPLE, NO THYROMEGALY, NO JVD, NO LAD CVS: RRR, NORMAL S1S2 LUNGS/CHEST: CTA B, NORMAL CHEST EXPANSION B, GOOD AIR ENTRY B ABD: SOFT, NTND, GBS, NO REBOUND OR GUARDING EXT/SKIN: NO SIGNIFICANT EDEMA OR RASH MSK: FROM X 4 EXTREMITIES NEURO: CN 2-12 GROSSLY INTACT, NO FOCAL DEFICITS PSY: CALM - Constitutional Vitals: Temp Pulse Resp BP Pulse Ox 98.7 F 95 H 16 188/122 99 04/13/17 09:54 04/13/17 09:54 04/13/17 09:54 04/13/17 09:54 04/13/17 09:54 General appearance: Present: no acute distress Results - Labs CBC & Chem 7: 04/12/17 10:16 04/12/17 10:16 Labs: Laboratory Last Values WBC 4.7 K/mm3 (4.5-11.0) 04/12/17 10:16 RBC 4.16 M/mm3 (3.65-5.03) 04/12/17 10:16 Hgb 10.9 gm/dl (11.8-15.2) L 04/12/17 10:16 Hct 33.4 % (35.5-45.6) L 04/12/17 10:16 MCV 80 fl (84-94) L 04/12/17 10:16 MCH 26 pg (28-32) L 04/12/17 10:16 MCHC 33 % (32-34) 04/12/17 10:16 RDW 16.6 % (13.2-15.2) H 04/12/17 10:16 Plt Count 81 K/mm3 (140-440) L 04/12/17 10:16 Add Manual Diff Complete 04/10/17 15:11 Total Counted 100 04/10/17 15:11 Seg Neuts % (Manual) 84.0 % (40.0-70.0) H 04/10/17 15:11 Band Neutrophils % 5.0 % 04/10/17 15:11 Lymphocytes % (Manual) 3.0 % (13.4-35.0) L 04/10/17 15:11 Reactive Lymphs % (Man) 1.0 % 04/10/17 15:11 Monocytes % (Manual) 6.0 % (0.0-7.3) 04/10/17 15:11 Eosinophils % (Manual) 1.0 % (0.0-4.3) 04/10/17 15:11 Basophils % (Manual) 0 % (0.0-1.8) 04/10/17 15:11 Metamyelocytes % 0 % 04/10/17 15:11 Myelocytes % 0 % 04/10/17 15:11 Promyelocytes % 0 % 04/10/17 15:11 Blast Cells % 0 % 04/10/17 15:11 Nucleated RBC % Not Reportable 04/10/17 15:11 Seg Neutrophils # Man 3.5 K/mm3 (1.8-7.7) 04/10/17 15:11 Band Neutrophils # 0.2 K/mm3 04/10/17 15:11 Lymphocytes # (Manual) 0.1 K/mm3 (1.2-5.4) L 04/10/17 15:11 Abs React Lymphs (Man) 0.0 K/mm3 04/10/17 15:11 Monocytes # (Manual) 0.3 K/mm3 (0.0-0.8) 04/10/17 15:11 Eosinophils # (Manual) 0.0 K/mm3 (0.0-0.4) 04/10/17 15:11 Basophils # (Manual) 0.0 K/mm3 (0.0-0.1) 04/10/17 15:11 Metamyelocytes # 0.0 K/mm3 04/10/17 15:11 Myelocytes # 0.0 K/mm3 04/10/17 15:11 Promyelocytes # 0.0 K/mm3 04/10/17 15:11 Blast Cells # 0.0 K/mm3 04/10/17 15:11 WBC Morphology Not Reportable 04/10/17 15:11 Hypersegmented Neuts Not Reportable 04/10/17 15:11 Hyposegmented Neuts Not Reportable 04/10/17 15:11 Hypogranular Neuts Not Reportable 04/10/17 15:11 Smudge Cells Not Reportable 04/10/17 15:11 Toxic Granulation Not Reportable 04/10/17 15:11 Toxic Vacuolation Not Reportable 04/10/17 15:11 Dohle Bodies Not Reportable 04/10/17 15:11 Pelger-Huet Anomaly Not Reportable 04/10/17 15:11 Dana Rods Not Reportable 04/10/17 15:11 Platelet Estimate Consistent w auto 04/10/17 15:11 Clumped Platelets Not Reportable 04/10/17 15:11 Plt Clumps, EDTA Not Reportable 04/10/17 15:11 Large Platelets Not Reportable 04/10/17 15:11 Giant Platelets Not Reportable 04/10/17 15:11 Platelet Satelliting Not Reportable 04/10/17 15:11 Plt Morphology Comment Not Reportable 04/10/17 15:11 RBC Morphology Not Reportable 04/10/17 15:11 Dimorphic RBCs Not Reportable 04/10/17 15:11 Polychromasia Not Reportable 04/10/17 15:11 Hypochromasia Not Reportable 04/10/17 15:11 Poikilocytosis Not Reportable 04/10/17 15:11 Anisocytosis 1+ 04/10/17 15:11 Microcytosis Not Reportable 04/10/17 15:11 Macrocytosis Not Reportable 04/10/17 15:11 Spherocytes Not Reportable 04/10/17 15:11 Pappenheimer Bodies Not Reportable 04/10/17 15:11 Sickle Cells Not Reportable 04/10/17 15:11 Target Cells Not Reportable 04/10/17 15:11 Tear Drop Cells Not Reportable 04/10/17 15:11 Ovalocytes Not Reportable 04/10/17 15:11 Helmet Cells Not Reportable 04/10/17 15:11 Tafoya-Roseto Bodies Not Reportable 04/10/17 15:11 [place] Rings Not Reportable 04/10/17 15:11 Rhianna Cells Not Reportable 04/10/17 15:11 Bite Cells Not Reportable 04/10/17 15:11 Crenated Cell Not Reportable 04/10/17 15:11 Elliptocytes 1+ 04/10/17 15:11 Acanthocytes (Spur) Not Reportable 04/10/17 15:11 Rouleaux Not Reportable 04/10/17 15:11 Hemoglobin C Crystals Not Reportable 04/10/17 15:11 Schistocytes Not Reportable 04/10/17 15:11 Malaria parasites Not Reportable 04/10/17 15:11 [place] Bodies Not Reportable 04/10/17 15:11 Hem Pathologist Commnt No 04/10/17 15:11 D-Dimer 1139.84 ng/mlDDU (0-234) H 04/10/17 16:55 Sodium 140 mmol/L (137-145) 04/12/17 10:16 Potassium 3.3 mmol/L (3.6-5.0) L 04/12/17 10:16 Chloride 97.9 mmol/L (98-107) L 04/12/17 10:16 Carbon Dioxide 28 mmol/L (22-30) 04/12/17 10:16 Anion Gap 17 mmol/L 04/12/17 10:16 BUN 34 mg/dL (9-20) H 04/12/17 10:16 Creatinine 4.3 mg/dL (0.8-1.5) H 04/12/17 10:16 Estimated GFR 16 ml/min 04/12/17 10:16 BUN/Creatinine Ratio 7.90 % 04/12/17 10:16 Glucose 99 mg/dL (75-100) 04/12/17 10:16 Calcium 9.2 mg/dL (8.4-10.2) 04/12/17 10:16 Total Bilirubin 0.80 mg/dL (0.1-1.2) 04/10/17 15:11 AST 33 units/L (5-40) 04/10/17 15:11 ALT 10 units/L (7-56) 04/10/17 15:11 Alkaline Phosphatase 39 units/L (35-129) 04/10/17 15:11 Troponin T 0.024 ng/mL (0.00-0.029) 04/10/17 15:11 Total Protein 8.8 g/dL (6.3-8.2) H 04/10/17 15:11 Albumin 3.8 g/dL (3.9-5) L 04/10/17 15:11 Albumin/Globulin Ratio 0.8 % 04/10/17 15:11 Urine Color Yellow (Yellow) 04/10/17 20:04 Urine Turbidity Clear (Clear) 04/10/17 20:04 Urine pH 8.0 (5.0-7.0) H 04/10/17 20:04 Ur Specific [place] 1.013 (1.003-1.030) 04/10/17 20:04 Urine Protein 100 mg/dl mg/dL (Negative) 04/10/17 20:04 Urine Glucose (UA) Neg mg/dL (Negative) 04/10/17 20:04 Urine Ketones Neg mg/dL (Negative) 04/10/17 20:04 Urine Blood Sm (Negative) 04/10/17 20:04 Urine Nitrite Neg (Negative) 04/10/17 20:04 Urine Bilirubin Neg (Negative) 04/10/17 20:04 Urine Urobilinogen < 2.0 mg/dL (<2.0) 04/10/17 20:04 Ur Leukocyte Esterase Mod (Negative) 04/10/17 20:04 Urine WBC (Auto) 19.0 /HPF (0.0-6.0) H 04/10/17 20:04 Urine RBC (Auto) 4.0 /HPF (0.0-6.0) 04/10/17 20:04 U Epithel Cells (Auto) 1.0 /HPF (0-13.0) 04/10/17 20:04 Urine Mucus Few /HPF 04/10/17 20:04 Urine Total Volume 1500 04/12/17 23:10 Urine Creatinine 187.3 mg/dL (0.1-20.0) H 04/12/17 23:10 Ur Creatinine 24 Hour 2.8 (0.8-2.8) 04/11/17 08:41 Height (in) 72.0 inches 04/12/17 23:10 Weight (lb) 221.1 lbs 04/12/17 23:10 Creatinine Clearance 35 04/12/17 23:10 Ur Total Protein 24 Hr 2820.00 (2-200) H 04/11/17 08:41 Urine Sodium 49 mEq/L 04/10/17 20:04 Urine Total Protein 188 mg/dL (5-11.8) H 04/11/17 08:41 Urine Opiates Screen Presumptive negative 04/10/17 20:04 Urine Methadone Screen Presumptive negative 04/10/17 20:04 Ur Barbiturates Screen Presumptive negative 04/10/17 20:04 Ur Phencyclidine Scrn Presumptive negative 04/10/17 20:04 Ur Amphetamines Screen Presumptive negative 04/10/17 20:04 U Benzodiazepines Scrn Presumptive positive 04/10/17 20:04 Urine Cocaine Screen Presumptive negative 04/10/17 20:04 U Marijuana (THC) Screen Presumptive positive 04/10/17 20:04 Drugs of Abuse Note Disclamer 04/10/17 20:04 Proteinase 3 (PR3) Ab <1.0 AI (<1.0) 04/11/17 09:12 Myeloperoxidase Ab <1.0 AI (<1.0) 04/11/17 09:12 Complement C3 118 mg/dL (90-180) 04/11/17 09:12 Complement C4 35 mg/dL (16-47) 04/11/17 09:12 HIV 1&2 Antibody Rapid Reactive (Non React) 04/11/17 14:51 HIV P24 Antigen Non react (Non React) 04/11/17 14:51
[2017-04-13] MEDS: IMDUR PO SCH (13:44)
[2017-04-14] MEDS: APRESOLINE PO SCH ×3 (06:31→21:28)
[2017-04-14] MEDS: COREG PO SCH (09:11)
[2017-04-14] MEDS: IMDUR PO SCH (09:11)
[2017-04-14] MEDS: ALDACTONE PO SCH ×2 (09:12→21:29)
[2017-04-14] MEDS: PROCARDIA XL PO SCH (09:12)
[2017-04-14] MEDS: KEPPRA PO SCH ×2 (09:12→21:28)
--- NOTE | 2017-04-14 11:32 | Progress Note ---
Assessment and Plan Assessment and plan: Patient's 36-year-old man with a history of hypertension and tobacco dependency who presents with altered mental status and new-onset seizures witnessed by sister. He denies etoh. He was found to have bp 235/156 HR 98. He was also found Cr 4.6. CT head read as no acute abnormality seen. -Acute encephalopathy due to seizure disorder resolved. -Seizure disorder with status epilepticus: Consulted neurology, on Keppra, ordered EEG -Malignant hypertension with encephalopathy, off Cardene, will transfer out of ICU -Acute renal failure, vasomotor nephropathy: Renal is following, renal u/s ==>c/ w chronic medical disease -Thrombocytopenia and leukopenia: check HIV, counseling done and pt ok'd testing -Hypokalemia: Replace and renal is following +HIV antibody but negative (-) p24 antigen, await confirmation testing. I reached out to ID also. Ordered HIV RNA 04/13/17: Bp still uncontrolled, I added Imdur to the hydralazine, coreg, aldactone and procardia once HIV RNA comes back (no Pcp to f/u result) and bp improve can d/c home 04/14/17: coreg increased and sbp finally under 180. pt feels good and wants to go home. I d/w the HIV results, since HIV RNA is a send out lab the results is delayed. I have spoken with our apparel manager and he will see if it back today. Nonetheless, pt doesnt want to stay and he will follow up with Dr. Yoo at one of her [facility] clinic. History Interval history: Patient seen and examined. Follow up on seizures. Overnight uneventful. No cp, sob. Imaging, old records, testing, labs, nursing notes reviewed. He complains of headache behind his right eye with nausea but no vomiting or abdominal pain. Hospitalist Physical - Physical exam Narrative exam: GEN: WDWN, bmi 30.5 NAD, AWAKE, ALERT, ORIENTATED x 3 HEENT: NCAT, PERRL, EOMI, OP CLEAR mmm NECK: SUPPLE, NO THYROMEGALY, NO JVD, NO LAD CVS: RRR, NORMAL S1S2 LUNGS/CHEST: CTA B, NORMAL CHEST EXPANSION B, GOOD AIR ENTRY B ABD: SOFT, NTND, GBS, NO REBOUND OR GUARDING EXT/SKIN: NO SIGNIFICANT EDEMA OR RASH MSK: FROM X 4 EXTREMITIES NEURO: CN 2-12 GROSSLY INTACT, NO FOCAL DEFICITS PSY: CALM - Constitutional Vitals: Temp Pulse Resp BP Pulse Ox 99.0 F 95 H 20 175/108 99 04/14/17 09:06 04/14/17 09:52 04/14/17 09:06 04/14/17 09:12 04/14/17 09:06 General appearance: Present: no acute distress Results - Labs CBC & Chem 7: 04/12/17 10:16 04/12/17 10:16 Labs: Laboratory Last Values WBC 4.7 K/mm3 (4.5-11.0) 04/12/17 10:16 RBC 4.16 M/mm3 (3.65-5.03) 04/12/17 10:16 Hgb 10.9 gm/dl (11.8-15.2) L 04/12/17 10:16 Hct 33.4 % (35.5-45.6) L 04/12/17 10:16 MCV 80 fl (84-94) L 04/12/17 10:16 MCH 26 pg (28-32) L 04/12/17 10:16 MCHC 33 % (32-34) 04/12/17 10:16 RDW 16.6 % (13.2-15.2) H 04/12/17 10:16 Plt Count 81 K/mm3 (140-440) L 04/12/17 10:16 Add Manual Diff Complete 04/10/17 15:11 Total Counted 100 04/10/17 15:11 Seg Neuts % (Manual) 84.0 % (40.0-70.0) H 04/10/17 15:11 Band Neutrophils % 5.0 % 04/10/17 15:11 Lymphocytes % (Manual) 3.0 % (13.4-35.0) L 04/10/17 15:11 Reactive Lymphs % (Man) 1.0 % 04/10/17 15:11 Monocytes % (Manual) 6.0 % (0.0-7.3) 04/10/17 15:11 Eosinophils % (Manual) 1.0 % (0.0-4.3) 04/10/17 15:11 Basophils % (Manual) 0 % (0.0-1.8) 04/10/17 15:11 Metamyelocytes % 0 % 04/10/17 15:11 Myelocytes % 0 % 04/10/17 15:11 Promyelocytes % 0 % 04/10/17 15:11 Blast Cells % 0 % 04/10/17 15:11 Nucleated RBC % Not Reportable 04/10/17 15:11 Seg Neutrophils # Man 3.5 K/mm3 (1.8-7.7) 04/10/17 15:11 Band Neutrophils # 0.2 K/mm3 04/10/17 15:11 Lymphocytes # (Manual) 0.1 K/mm3 (1.2-5.4) L 04/10/17 15:11 Abs React Lymphs (Man) 0.0 K/mm3 04/10/17 15:11 Monocytes # (Manual) 0.3 K/mm3 (0.0-0.8) 04/10/17 15:11 Eosinophils # (Manual) 0.0 K/mm3 (0.0-0.4) 04/10/17 15:11 Basophils # (Manual) 0.0 K/mm3 (0.0-0.1) 04/10/17 15:11 Metamyelocytes # 0.0 K/mm3 04/10/17 15:11 Myelocytes # 0.0 K/mm3 04/10/17 15:11 Promyelocytes # 0.0 K/mm3 04/10/17 15:11 Blast Cells # 0.0 K/mm3 04/10/17 15:11 WBC Morphology Not Reportable 04/10/17 15:11 Hypersegmented Neuts Not Reportable 04/10/17 15:11 Hyposegmented Neuts Not Reportable 04/10/17 15:11 Hypogranular Neuts Not Reportable 04/10/17 15:11 Smudge Cells Not Reportable 04/10/17 15:11 Toxic Granulation Not Reportable 04/10/17 15:11 Toxic Vacuolation Not Reportable 04/10/17 15:11 Dohle Bodies Not Reportable 04/10/17 15:11 Pelger-Huet Anomaly Not Reportable 04/10/17 15:11 Dana Rods Not Reportable 04/10/17 15:11 Platelet Estimate Consistent w auto 04/10/17 15:11 Clumped Platelets Not Reportable 04/10/17 15:11 Plt Clumps, EDTA Not Reportable 04/10/17 15:11 Large Platelets Not Reportable 04/10/17 15:11 Giant Platelets Not Reportable 04/10/17 15:11 Platelet Satelliting Not Reportable 04/10/17 15:11 Plt Morphology Comment Not Reportable 04/10/17 15:11 RBC Morphology Not Reportable 04/10/17 15:11 Dimorphic RBCs Not Reportable 04/10/17 15:11 Polychromasia Not Reportable 04/10/17 15:11 Hypochromasia Not Reportable 04/10/17 15:11 Poikilocytosis Not Reportable 04/10/17 15:11 Anisocytosis 1+ 04/10/17 15:11 Microcytosis Not Reportable 04/10/17 15:11 Macrocytosis Not Reportable 04/10/17 15:11 Spherocytes Not Reportable 04/10/17 15:11 Pappenheimer Bodies Not Reportable 04/10/17 15:11 Sickle Cells Not Reportable 04/10/17 15:11 Target Cells Not Reportable 04/10/17 15:11 Tear Drop Cells Not Reportable 04/10/17 15:11 Ovalocytes Not Reportable 04/10/17 15:11 Helmet Cells Not Reportable 04/10/17 15:11 Tafoya-Parrish Bodies Not Reportable 04/10/17 15:11 [place] Rings Not Reportable 04/10/17 15:11 Rhianna Cells Not Reportable 04/10/17 15:11 Bite Cells Not Reportable 04/10/17 15:11 Crenated Cell Not Reportable 04/10/17 15:11 Elliptocytes 1+ 04/10/17 15:11 Acanthocytes (Spur) Not Reportable 04/10/17 15:11 Rouleaux Not Reportable 04/10/17 15:11 Hemoglobin C Crystals Not Reportable 04/10/17 15:11 Schistocytes Not Reportable 04/10/17 15:11 Malaria parasites Not Reportable 04/10/17 15:11 [place] Bodies Not Reportable 04/10/17 15:11 Hem Pathologist Commnt No 04/10/17 15:11 D-Dimer 1139.84 ng/mlDDU (0-234) H 04/10/17 16:55 Sodium 140 mmol/L (137-145) 04/12/17 10:16 Potassium 3.3 mmol/L (3.6-5.0) L 04/12/17 10:16 Chloride 97.9 mmol/L (98-107) L 04/12/17 10:16 Carbon Dioxide 28 mmol/L (22-30) 04/12/17 10:16 Anion Gap 17 mmol/L 04/12/17 10:16 BUN 34 mg/dL (9-20) H 04/12/17 10:16 Creatinine 4.3 mg/dL (0.8-1.5) H 04/12/17 10:16 Estimated GFR 16 ml/min 04/12/17 10:16 BUN/Creatinine Ratio 7.90 % 04/12/17 10:16 Glucose 99 mg/dL (75-100) 04/12/17 10:16 Calcium 9.2 mg/dL (8.4-10.2) 04/12/17 10:16 Total Bilirubin 0.80 mg/dL (0.1-1.2) 04/10/17 15:11 AST 33 units/L (5-40) 04/10/17 15:11 ALT 10 units/L (7-56) 04/10/17 15:11 Alkaline Phosphatase 39 units/L (35-129) 04/10/17 15:11 Troponin T 0.024 ng/mL (0.00-0.029) 04/10/17 15:11 Total Protein 8.8 g/dL (6.3-8.2) H 04/10/17 15:11 Albumin 3.8 g/dL (3.9-5) L 04/10/17 15:11 Albumin/Globulin Ratio 0.8 % 04/10/17 15:11 Urine Color Yellow (Yellow) 04/10/17 20:04 Urine Turbidity Clear (Clear) 04/10/17 20:04 Urine pH 8.0 (5.0-7.0) H 04/10/17 20:04 Ur Specific [place] 1.013 (1.003-1.030) 04/10/17 20:04 Urine Protein 100 mg/dl mg/dL (Negative) 04/10/17 20:04 Urine Glucose (UA) Neg mg/dL (Negative) 04/10/17 20:04 Urine Ketones Neg mg/dL (Negative) 04/10/17 20:04 Urine Blood Sm (Negative) 04/10/17 20:04 Urine Nitrite Neg (Negative) 04/10/17 20:04 Urine Bilirubin Neg (Negative) 04/10/17 20:04 Urine Urobilinogen < 2.0 mg/dL (<2.0) 04/10/17 20:04 Ur Leukocyte Esterase Mod (Negative) 04/10/17 20:04 Urine WBC (Auto) 19.0 /HPF (0.0-6.0) H 04/10/17 20:04 Urine RBC (Auto) 4.0 /HPF (0.0-6.0) 04/10/17 20:04 U Epithel Cells (Auto) 1.0 /HPF (0-13.0) 04/10/17 20:04 Urine Mucus Few /HPF 04/10/17 20:04 Urine Total Volume 1500 04/12/17 23:10 Urine Creatinine 187.3 mg/dL (0.1-20.0) H 04/12/17 23:10 Ur Creatinine 24 Hour 2.8 (0.8-2.8) 04/11/17 08:41 Height (in) 72.0 inches 04/12/17 23:10 Weight (lb) 221.1 lbs 04/12/17 23:10 Creatinine Clearance 35 04/12/17 23:10 Ur Total Protein 24 Hr 2820.00 (2-200) H 04/11/17 08:41 Urine Sodium 49 mEq/L 04/10/17 20:04 Urine Total Protein 188 mg/dL (5-11.8) H 04/11/17 08:41 Urine Opiates Screen Presumptive negative 04/10/17 20:04 Urine Methadone Screen Presumptive negative 04/10/17 20:04 Ur Barbiturates Screen Presumptive negative 04/10/17 20:04 Ur Phencyclidine Scrn Presumptive negative 04/10/17 20:04 Ur Amphetamines Screen Presumptive negative 04/10/17 20:04 U Benzodiazepines Scrn Presumptive positive 04/10/17 20:04 Urine Cocaine Screen Presumptive negative 04/10/17 20:04 U Marijuana (THC) Screen Presumptive positive 04/10/17 20:04 Drugs of Abuse Note Disclamer 04/10/17 20:04 Proteinase 3 (PR3) Ab <1.0 AI (<1.0) 04/11/17 09:12 Myeloperoxidase Ab <1.0 AI (<1.0) 04/11/17 09:12 Complement C3 118 mg/dL (90-180) 04/11/17 09:12 Complement C4 35 mg/dL (16-47) 04/11/17 09:12 HIV 1&2 Antibody Rapid Reactive (Non React) 04/11/17 14:51 HIV P24 Antigen Non react (Non React) 04/11/17 14:51
[2017-04-14] MEDS ORDERED: PROCARDIA XL PO SCH (11:34)
--- NOTE | 2017-04-14 11:34 | Progress Note ---
Subjective Interval history: Patient was seen today for follow-up on multiple renal related issues Events noted Patient denies any complaints of headache chest pain shortness of breath Has much better understanding of his renal failure now No acute distress Vitals labs intake output medications reviewed Social history: Reviewed Family history: Reviewed Physical examination Vitals: Reviewed HEENT: Oral mucosa moist Neck: Supple no JVD Chest: Clear to auscultation no crackles Heart: Regular rate and rhythm S1 and S2 heard Abdomen: Soft nontender bowel sounds present Extremity: Mild edema dry skin Dermatology; dry skin Psychiatry: No evidence of agitation or aggression Assessment and plan; Renal failure in a patient who is 36-year-old admitted with uncontrolled hypertension and advanced renal failure Patient's urine output is quite good, needs better control of hypertension follow-up renal function and 24-hour studies results At this time would like to discontinue Coreg Increase nifedipine to 90 mg once a day Continue with Aldactone 25 mg twice a day as tolerated Increase hydralazine to 100 mg 3 times a day Patient does appear to have echogenic kidney suggestive of chronic kidney disease At some point limiting some more stable he can be considered for kidney biopsy Likely hypertensive nephropathy follow-up on the serology 24-hour urine for creatinine and creatinine clearance and protein No acute or emergent indication for renal replacement therapy Patient has been adequately counseled regarding renal related issues Periodically monitor renal related labs We'll continue to follow and make recommendation from renal standpoin Objective - Vital Signs Vital signs: Vital Signs - 12hr 04/14/17 04/14/17 04/14/17 00:00 04:00 06:31 Temperature 98.3 F Pulse Rate 78 93 H Pulse Rate [ 81 Right Radial] Respiratory 18 Rate Blood Pressure 173/95 Blood Pressure 144/74 [Right Arm] O2 Sat by Pulse 99 Oximetry 04/14/17 04/14/17 04/14/17 06:42 09:06 09:11 Temperature 98.1 F 99.0 F Pulse Rate 95 H Pulse Rate [ 85 95 H Right Radial] Respiratory 18 20 Rate Blood Pressure 175/108 Blood Pressure 173/95 170/108 [Right Arm] O2 Sat by Pulse 97 99 Oximetry 04/14/17 04/14/17 09:12 09:52 Temperature Pulse Rate 95 H Pulse Rate [ 95 H Right Radial] Respiratory Rate Blood Pressure 175/108 Blood Pressure [Right Arm] O2 Sat by Pulse Oximetry - Lab 04/12/17 10:16 04/12/17 10:16 Most recent lab results Calcium 9.2 mg/dL (8.4-10.2) 04/12/17 10:16 Urine Creatinine 187.3 mg/dL (0.1-20.0) H 04/12/17 23:10 Ur Total Protein 24 Hr 2820.00 (2-200) H 04/11/17 08:41 Urine Sodium 49 mEq/L 04/10/17 20:04 Urine Total Protein 188 mg/dL (5-11.8) H 04/11/17 08:41
--- NOTE | 2017-04-14 11:39 | Discharge Summary ---
Providers - Providers Date of Admission: 04/10/17 18:53 Date of discharge: 04/15/17 Attending physician: EDWIN BENITEZ 04/11/17 08:12 Consult to Physician [CONS] Routine Consulting Provider: FORREST DEE Reason For Exam: arf Place consult to:: Leila RED Notified:: yes Comment:: seen patient 04/11/17 14:38 Consult to Physician [CONS] Routine Consulting Provider: STELLA BRAVO Reason For Exam: new onset Seizure Place consult to:: Lawrence RED Notified:: a service Phone number called:: [phone] Was contact made?: Yes If yes, spoke with:: rachel Time called:: 09:02 Primary care physician: CELL RELINER Hospitalization Condition: Stable Hospital course: Patient's 36-year-old man with a history of hypertension and tobacco dependency who presents with altered mental status and new-onset seizures witnessed by sister. He denies etoh. He was found to have bp 235/156 HR 98. He was also found Cr 4.6. CT head read as no acute abnormality seen. -Acute encephalopathy due to seizure disorder resolved. -Seizure disorder with status epilepticus: Consulted neurology, on Keppra, ordered EEG -Malignant hypertension with encephalopathy, off Cardene, will transfer out of ICU -Acute renal failure, vasomotor nephropathy: Renal is following, renal u/s ==>c/ w chronic medical disease -Thrombocytopenia and leukopenia: check HIV, counseling done and pt ok'd testing -Hypokalemia: Replace and renal is following +HIV antibody but negative (-) p24 antigen, await confirmation testing. I reached out to ID also. Ordered HIV RNA 04/13/17: Bp still uncontrolled, I added Imdur to the hydralazine, coreg, aldactone and procardia once HIV RNA comes back (no Pcp to f/u result) and bp improve can d/c home 04/14/17: coreg increased and sbp finally under 180. pt feels good and wants to go home. I d/w the HIV results, since HIV RNA is a send out lab the results is delayed. I have spoken with our fixed income manager and he will see if it back today. Nonetheless, pt doesnt want to stay and he will follow up with Dr. Yoo at one of her [facility] HIV clinic. Counselling done. Dr. Mchugh adjusted antihypertensives, which worked. 04/15/17: +HIV RNA, will vocational guidance counselor, much better bp controlled Disposition: DC-01 TO HOME OR SELFCARE Time spent for discharge: 40 minutes Core Measure Documentation - Palliative Care Palliative Care/ Comfort Measures: Not Applicable - Core Measures Any of the following diagnoses?: none - VTE Discharge Requirements Deep Vein Thrombosis/Pulmonary Embolism Present on Admission: No Has pt received <5 days of overlap therapy or INR<2.0: No Anticoagulant overlap therapy prescribed at discharge: No Contraindication No Overlap Therapy order at DC: Not Indicated Exam - Physical Exam Narrative exam: GEN: WDWN, bmi 30.5 NAD, AWAKE, ALERT, ORIENTATED x 3 HEENT: NCAT, PERRL, EOMI, OP CLEAR mmm NECK: SUPPLE, NO THYROMEGALY, NO JVD, NO LAD CVS: RRR, NORMAL S1S2 LUNGS/CHEST: CTA B, NORMAL CHEST EXPANSION B, GOOD AIR ENTRY B ABD: SOFT, NTND, GBS, NO REBOUND OR GUARDING EXT/SKIN: NO SIGNIFICANT EDEMA OR RASH MSK: FROM X 4 EXTREMITIES NEURO: CN 2-12 GROSSLY INTACT, NO FOCAL DEFICITS PSY: CALM - Constitutional Vitals: Temp Pulse Resp BP Pulse Ox 99.0 F 95 H 20 175/108 99 04/14/17 09:06 04/14/17 09:52 04/14/17 09:06 04/14/17 09:12 04/14/17 09:06 Plan Activity: other Diet: low salt (no strenous activity until cleared by ID) Special Instructions: record daily BP diary Additional Instructions: See Dr. Bravo the neurologist for seizures. See Dr. Yoo for HIV RNA test results. See Dr. Dee for kidney disorder. Call [facility] [phone] for pcp Follow up with: CHI GRANT MD [Primary Care Provider] - 3-5 Days JAYMIE YOO MD [Staff Physician] - 7 Days YOLANDA PARHAM MD [Staff Physician] - 10 Days STELLA BRAVO MD [Staff Physician] - 7 Days FORREST DEE MD [Staff Physician] - 7 Days Prescriptions: hydrALAZINE [Apresoline TAB] 100 mg PO Q8HR #1 mo ISOSORBIDE MONOnitrate [Imdur ER] 30 mg PO QDAY #30 tablet levETIRAcetam [Keppra TAB] 500 mg PO BID #60 tablet NIFEdipine XL [Procardia Xl] 90 mg PO QDAY #30 tablet Spironolactone [Aldactone] 25 mg PO BID #60 tablet
[2017-04-15 05:33] LABS: Albumin 4.3 g/dL (3.8-4.8); Gamma Globulin 2.9 g/dL (0.8-1.7)
[2017-04-15] MEDS: APRESOLINE PO SCH ×2 (05:37→13:26)
[2017-04-15] MEDS: ALDACTONE PO SCH (09:03)
[2017-04-15] MEDS: KEPPRA PO SCH (09:04)
[2017-04-15] MEDS: IMDUR PO SCH (09:04)
[2017-04-15] MEDS ORDERED: PROCARDIA XL PO SCH (10:00)
[2017-04-15 10:24] LABS: HIV-1 RNA QN PCR 5.03 Log cps/mL (<1.30)
[2017-04-15] MEDS ORDERED: K-DUR PO ONE ×2 (10:27→12:00)
--- NOTE | 2017-04-15 10:29 | Progress Note ---
Subjective Interval history: Patient was seen today for follow-up on multiple renal related issues he wants to know when he can go home Vitals labs intake output medications reviewed Social history: Reviewed Family history: Reviewed Physical examination Vitals: Reviewed HEENT: Oral mucosa moist Neck: Supple no JVD Chest: Clear to auscultation no crackles Heart: Regular rate and rhythm S1 and S2 heard Abdomen: Soft nontender bowel sounds present Extremity: Mild edema dry skin Dermatology; dry skin Psychiatry: No evidence of agitation or aggression Assessment and plan; Renal failure in a patient who is 36-year-old admitted with uncontrolled hypertension and advanced renal failure he will need to make an appointment in the office for next week I have ordered his labs for today Patient does appear to have echogenic kidney suggestive of chronic kidney disease At some point limiting some more stable he can be considered for kidney biopsy Patient will need labs done today, if his renal function and potassium is stable he can be considered for discharge Patient has received adequate education and counseling regarding renal-related issues I have adequately counseled and educated him to make an appointment in the office next week for follow-up He has been advised to get further education about chronic kidney disease from our website and associated links Renal prognosis will depend on the degree of compliance, his renal prognosis is guarded We'll continue to follow and make recommendation from renal standpoin Objective - Vital Signs Vital signs: Vital Signs - 12hr 04/15/17 04/15/17 04/15/17 01:08 03:30 05:37 Temperature 99.4 F Pulse Rate 90 94 H Pulse Rate [ 97 H Right Radial] Respiratory 18 Rate Blood Pressure 133/89 Blood Pressure 152/85 [Right Arm] O2 Sat by Pulse 98 Oximetry 04/15/17 04/15/17 04/15/17 06:00 07:35 09:03 Temperature 99.4 F 99.0 F Pulse Rate 96 H Pulse Rate [ 93 H 96 H Right Radial] Respiratory 18 20 Rate Blood Pressure 141/86 Blood Pressure 145/83 141/86 [Right Arm] O2 Sat by Pulse 99 96 Oximetry 04/15/17 09:04 Temperature Pulse Rate 96 H Pulse Rate [ Right Radial] Respiratory Rate Blood Pressure 141/86 Blood Pressure [Right Arm] O2 Sat by Pulse Oximetry - Lab 04/12/17 10:16 04/15/17 10:51 Most recent lab results Calcium 9.2 mg/dL (8.4-10.2) 04/12/17 10:16 Urine Creatinine 187.3 mg/dL (0.1-20.0) H 04/12/17 23:10 Ur Total Protein 24 Hr 2820.00 (2-200) H 04/11/17 08:41 Urine Sodium 49 mEq/L 04/10/17 20:04 Urine Total Protein 188 mg/dL (5-11.8) H 04/11/17 08:41
--- NOTE | 2017-04-15 11:00 | Event Note ---
Date: 04/15/17 see discharge note dated yesterday. Patient's 36-year-old man with a history of hypertension and tobacco dependency who presents with altered mental status and new-onset seizures witnessed by sister. He denies etoh. He was found to have bp 235/156 HR 98. He was also found Cr 4.6. CT head read as no acute abnormality seen. -Acute encephalopathy due to seizure disorder resolved. -Seizure disorder with status epilepticus: Consulted neurology, on Keppra, ordered EEG -Malignant hypertension with encephalopathy, off Cardene, will transfer out of ICU -Acute renal failure, vasomotor nephropathy: Renal is following, renal u/s ==>c/ w chronic medical disease -Thrombocytopenia and leukopenia: check HIV, counseling done and pt ok'd testing -Hypokalemia: Replace and renal is following +HIV antibody but negative (-) p24 antigen, await confirmation testing. I reached out to ID also. Ordered HIV RNA 04/13/17: Bp still uncontrolled, I added Imdur to the hydralazine, coreg, aldactone and procardia once HIV RNA comes back (no Pcp to f/u result) and bp improve can d/c home 04/14/17: coreg increased and sbp finally under 180. pt feels good and wants to go home. I d/w the HIV results, since HIV RNA is a send out lab the results is delayed. I have spoken with our customer experience manager and he will see if it back today. Nonetheless, pt doesnt want to stay and he will follow up with Dr. Yoo at one of her [facility] HIV clinic. Counselling done. Dr. Mchugh adjusted antihypertensives, which worked. 04/15/17: +HIV RNA, will pet adoption counselor, much better bp controlled
[2017-04-15 11:37] LABS: BUN/Creatinine Ratio 8.75; Calcium 9.2 mg/dL (8.4-10.2); Chloride 95.9 mmol/L (98-107); Magnesium 2.1 mg/dL (1.7-2.3); Potassium 3.8 mmol/L (3.6-5.0)
[2017-04-15 13:28] VITALS: BP 162/87
== END 2017-04-15 15:31 | disposition home or self-care (01) | DRG 100 ==
LOC: ED 14:08 → CC1 18:53 → 4A 04-12 17:55
PROVIDERS: ADMIT Internal Medicine; ATTEND Internal Medicine
DX: G40.909 Epilepsy, unspecified, not intractable, without status epilepticus (principal); G93.40 Encephalopathy, unspecified; N17.0 Acute kidney failure with tubular necrosis; I16.1 Hypertensive emergency; F17.210 Nicotine dependence, cigarettes, uncomplicated; N18.9 Chronic kidney disease, unspecified; I12.9 Hypertensive chronic kidney disease with stage 1 through stage 4 chronic kidney disease, or unspecified chronic kidney disease; E87.6 Hypokalemia; D69.6 Thrombocytopenia, unspecified; D72.819 Decreased white blood cell count, unspecified; Z71.89 Other specified counseling
CPT/HCPCS: 36415; 70450; 71020; 76770; 80048; 80053; 80307; 81001; 82088; 82565; 82570; 82575; 83735; 84156; 84165; 84166; 84300; 84484; 85007; 85025; 85027; 85379; 86021; 86038; 86160; 86689; 87086; 87536; 87806; 93005; 93010; 96374; J0360; J1644; J2405; J7050

== ENCOUNTER 2017-06-02 14:34 | Inpatient (IN) | payer OTHER ==
[2017-06-02 15:57] LABS: Bacteria,Urine 1+ /HPF (Negative); Bilirubin,Urine NEG (Negative); Blood,Urine NEG (Negative); Ketones,Urine NEG (Negative); Leukocyte Esterase,Urine TR (Negative); Mucus,Urine FEW /HPF; Nitrite,Urine NEG (Negative); Urobilinogen,Urine < 2.0 mg/dL (<2.0)
[2017-06-02 16:02] LABS: Protein,Urine >500 mg/dL (Negative)
[2017-06-02 16:05] LABS: Albumin 3.6 g/dL (3.9-5); Albumin/Globulin Ratio 0.7 %; BUN/Creatinine Ratio 9.04; Bilirubin,Total 0.6 mg/dL (0.1-1.2); Calcium 9.4 mg/dL (8.4-10.2); Potassium 3.4 mmol/L (3.6-5.0); Total Protein 8.9 g/dL (6.3-8.2)
[2017-06-02 16:06] LABS: Hematocrit 32.7 % (35.5-45.6); Hemoglobin 10.9 gm/dl (11.8-15.2); Mean Corpuscular HGB Conc 33 % (32-34); Mean Corpuscular Volume 76 fl (84-94); Platelet Count 236 K/mm3 (140-440); Red Cell Distribution Width 15.8 % (13.2-15.2); White Blood Count 8.2 K/mm3 (4.5-11.0)
[2017-06-02 16:09] LABS: Mean Corpuscular Hemoglobin 25 pg (28-32)
[2017-06-02 16:14] LABS: INR 1.08 (0.87-1.13)
[2017-06-02 16:39] LABS: Basophils % (Manual) 0 % (0.0-1.8); Blastocytes % (Manual) 0 %; Eosinophils % (Manual) 0 % (0.0-4.3)
[2017-06-02 16:40] LABS: Anisocytosis 1+
[2017-06-02 16:41] LABS: Diff Status Complete; Elliptocytes 1+; Platelet Estimate Consistent w Auto
[2017-06-02] MEDS ORDERED: NACL 0.9% 1000 ML 1,000 ML IV ONE ×2 (22:47→22:55)
[2017-06-02] MEDS ORDERED: ZITHROMAX 500 MG in NACL 0.9% 250ML 250 ML IV ONE (22:47)
[2017-06-02] MEDS ORDERED: ZOFRAN IV ONE (22:47)
--- NOTE | 2017-06-02 22:53 | Emergency Department Report ---
ED Fever HPI - General Chief Complaint: Fever Stated Complaint: HIGH BP/ABD VIRUS Time Seen by Provider: 06/02/17 22:39 Source: patient Exam Limitations: no limitations - History of Present Illness Initial Comments: 36 years old HIV patient to his HIV medications for more than a week presented today with a fever cough shortness of breath with some nausea and vomiting, no diarrhea, no abdominal pain, no chest pain, he stated that he has been taking Tylenol and Motrin for the fever. Describes his sputum as greenish. Timing/Duration: week Fever Severity/Quality: greater than 100.5 F Fever Therapy CARD PUNCHER: Ibuprofen, Tylenol Associated Symptoms: cough, nausea/vomiting, shortness of breath. denies: denies symptoms, abdominal pain, chest pain, confusion, diaphoresis, headache, muscle aches, rash, sore throat, stiff neck, syncope, weakness, other ED Review of Systems ROS: Stated complaint: HIGH BP/ABD VIRUS Other details as noted in HPI Comment: All other systems reviewed and negative Constitutional: chills, fever Respiratory: cough, shortness of breath Cardiovascular: dyspnea on exertion. denies: chest pain, palpitations Gastrointestinal: nausea, vomiting Genitourinary: denies: dysuria, frequency Skin: denies: rash, lesions Neurological: denies: headache, weakness ED Past Medical Hx - Past Medical History Hx Hypertension: Yes Hx Congestive Heart Failure: No Hx Diabetes: No Hx Renal Disease: Yes Hx Seizures: Yes Hx Asthma: No Hx COPD: No Hx HIV: Yes - Surgical History Past Surgical History?: No - Social History Smoking Status: Former Smoker Substance Use Type: None - Medications Home Medications: Home Medications Medication Instructions Recorded Confirmed Last Taken Type Acetaminophen [Acetaminophen TAB] 325 mg PO Q6H PRN #30 tablet 04/14/17 Unknown Rx ISOSORBIDE MONOnitrate [Imdur ER] 30 mg PO QDAY #30 tablet 04/14/17 Unknown Rx Spironolactone [Aldactone] 25 mg PO BID #60 tablet 04/14/17 Unknown Rx levETIRAcetam [Keppra TAB] 500 mg PO BID #60 tablet 04/14/17 Unknown Rx NIFEdipine XL [Procardia Xl] 90 mg PO QDAY #30 tablet 04/15/17 Unknown Rx hydrALAZINE [Apresoline TAB] 100 mg PO Q8HR #1 mo 04/15/17 Unknown Rx ED Physical Exam - General Limitations: No Limitations General appearance: alert, in no apparent distress - Head Head exam: Present: atraumatic, normocephalic, normal inspection - Eye Eye exam: Present: normal appearance - ENT ENT exam: Present: normal exam, normal orophraynx, mucous membranes dry - Neck Neck exam: Present: normal inspection. Absent: tenderness, meningismus, lymphadenopathy - Respiratory Respiratory exam: Present: wheezes, rales, rhonchi, decreased breath sounds, prolonged expiratory. Absent: stridor, chest wall tenderness, accessory muscle use - Cardiovascular Cardiovascular Exam: Present: tachycardia - GI/Abdominal GI/Abdominal exam: Present: soft. Absent: tenderness, guarding, rebound, rigid , normal bowel sounds, diminished bowel sounds, mass, bruit, pulsatile mass, hernia - Extremities Exam Extremities exam: Present: normal inspection - Back Exam Back exam: Present: normal inspection, full ROM. Absent: tenderness, CVA tenderness (R), CVA tenderness (L), paraspinal tenderness - Neurological Exam Neurological exam: Present: alert, oriented X3, CN II-XII intact - Skin Skin exam: Present: warm, dry, intact ED Course Vital Signs 06/02/17 14:50 Temperature 100.8 F H Pulse Rate 137 H Respiratory 26 H Rate Blood Pressure 196/137 O2 Sat by Pulse 99 Oximetry - Reevaluation(s) Reevaluation #1: 06/02/17 23:[address] Bia Cerda, presented patient to her, she agreed to admit the patient to her service ED Medical Decision Making - Lab Data Result diagrams: 06/02/17 15:19 06/02/17 15:19 Critical care attestation.: If time is entered above; I have spent that time in minutes in the direct care of this critically ill patient, excluding procedure time. ED Disposition Clinical Impression: Pneumonia, Fever, HIV (human immunodeficiency virus infection) Disposition: -09 OP ADMIT IP TO THIS HOSP Is pt being admited?: Yes Condition: Stable Instructions: Bacterial Pneumonia (ED) Referrals: PRIMARY CARE, [Primary Care Provider] - 3-5 Days
[2017-06-02] MEDS ORDERED: TYLENOL PO ONE (22:55)
[2017-06-02] MEDS ORDERED: XOPENEX IH ONE (23:05)
[2017-06-02] MEDS ORDERED: ATROVENT IH ONE (23:05)
--- NOTE | 2017-06-02 23:47 | History and Physical Report ---
History of Present Illness Date of examination: 06/02/17 History of present illness: 36-year-old man with history of hypertension, chronic kidney disease, seizure, HIV unknown CD4 count comes emergency room with complaints of nausea vomiting and diarrhea 5 days. Also complaining of fever, cough productive of yellow phlegm. He ran out of his HIV medicine 2 weeks ago Review Of Systems: Constitutional: no weight loss Ears, eyes, nose, mouth and throat: no nasal congestion, no nasal discharge, no sinus pressure, blurry vision, diplopia Neck: No neck pain or rigidity. Cardiovascular: chest pain, orthopnea, palpitations Respiratory: No shortness of breath, cough Gastrointestinal: abdominal pain, hematochezia Genitourinary : no dysuria, frequency , hematuria Musculoskeletal: no muscle ache Integumentary: no rash, no pruritis Neurological: no parathesias, focal weakness Endocrine: no cold or heat intolerance, no polyuria or polydipsia Hematologic/Lymphatic: no easy bruising, no easy bleeding, no gland swelling Allergic/Immunologic: no urticaria, no angioedema. PAST MEDICAL HISTORY:hypertension, chronic kidney disease, seizure, HIV PAST SURGICAL HISTORY: None FAMILY HISTORY: Hypertension SOCIAL HISTORY: Denies of alcohol, tobacco, drug Medications and Allergies Allergies Allergy/AdvReac Type Severity Reaction Status Date / Time No Known Allergies Allergy Unverified 04/10/17 15:20 Home Medications Medication Instructions Recorded Confirmed Last Taken Type Acetaminophen [Acetaminophen TAB] 325 mg PO Q6H PRN #30 tablet 04/14/17 Unknown Rx ISOSORBIDE MONOnitrate [Imdur ER] 30 mg PO QDAY #30 tablet 04/14/17 06/03/17 Unknown Rx Spironolactone [Aldactone] 25 mg PO BID #60 tablet 04/14/17 06/03/17 Unknown Rx levETIRAcetam [Keppra TAB] 500 mg PO BID #60 tablet 04/14/17 06/03/17 Unknown Rx NIFEdipine XL [Procardia Xl] 90 mg PO QDAY #30 tablet 04/15/17 06/03/17 Unknown Rx hydrALAZINE [Apresoline TAB] 100 mg PO Q8HR #1 mo 04/15/17 06/03/17 Unknown Rx Active Meds: Active Medications Sodium Chloride (Nacl 0.9% 1000 Ml) 1,000 mls @ 999 mls/hr IV BOLUS ONE Stop: 06/02/17 23:47 Sodium Chloride (Nacl 0.9% 1000 Ml) 1,000 mls @ 999 mls/hr IV BOLUS ONE Stop: 06/02/17 23:55 Trimethoprim/Sulfamethoxazole (Bactrim Ds) 1 each PO Q12HR ROSIE Exam - Physical Exam Narrative exam: Gen. appearance: Patient lying in bed in no acute distress HEENT: Normocephalic/atraumatic, pupils equal round reactive to light, extra alkaline movement intact, no scleral icterus, no JVD or thyromegaly or nodule, neck is supple, mucous membrane moist, no erythema , +exudate Heart: S1-S2, regular rate and rhythm Lungs: Clear to auscultation bilateral breathing comfortable Abdomen: Positive bowel sounds, nontender, nondistended, no organomegaly Extremities: No edema, cyanosis, clubbing Neuro:: Oriented 3 , cranial nerves II-12 intact, speech, motor intact Skin: No rash, nodules, warm dry - Constitutional Vitals: Temp Pulse Resp BP Pulse Ox 100.8 F H 137 H 26 H 196/137 99 06/02/17 14:50 06/02/17 14:50 06/02/17 14:50 06/02/17 14:50 06/02/17 14:50 Results - Labs CBC & Chem 7: 06/02/17 15:19 06/02/17 15:19 Labs: Abnormal lab results 06/02/17 06/02/17 Range/Units 15:19 15:19 Hgb 10.9 L (11.8-15.2) gm/dl Hct 32.7 L (35.5-45.6) % MCV 76 L (84-94) fl MCH 25 L (28-32) pg RDW 15.8 H (13.2-15.2) % Seg Neuts % (Manual) 74.0 H (40.0-70.0) % Lymphocytes % (Manual) 5.0 L (13.4-35.0) % Lymphocytes # (Manual) 0.4 L (1.2-5.4) K/mm3 Sodium 136 L (137-145) mmol/L Potassium 3.4 L (3.6-5.0) mmol/L Chloride 97.0 L (98-107) mmol/L Carbon Dioxide 20 L (22-30) mmol/L BUN 38 H (9-20) mg/dL Creatinine 4.2 H (0.8-1.5) mg/dL Glucose 107 H (75-100) mg/dL AST 42 H (5-40) units/L Total Protein 8.9 H (6.3-8.2) g/dL Albumin 3.6 L (3.9-5) g/dL - Imaging and Cardiology EKG: image reviewed Chest x-ray: image reviewed Assessment and Plan Assessment SIRS gastroenteritis, viral versus HIV related Oral candidiasis HIV Chronic kidney disease Hypertension Plan Start fluconazole, full cultures Obtain stool culture, C. difficile hOLD antibiotics for now, start iv fluid, replete potassium Continue appropriate outpatient medications DVT prophylaxis
[2017-06-03] MEDS ORDERED: DIFLUCAN 200 MG/100 ML BAG IV ONE (01:25)
[2017-06-03] MEDS ORDERED: DULCOLAX PR PRN (01:26)
[2017-06-03] MEDS ORDERED: MILK OF MAGNESIA PO PRN (01:26)
[2017-06-03] MEDS ORDERED: TYLENOL PO PRN (01:26)
[2017-06-03] MEDS ORDERED: ZOFRAN IV PRN (01:26)
[2017-06-03] MEDS ORDERED: PROVENTIL IH PRN (01:26)
[2017-06-03] MEDS ORDERED: KCL 10MEQ/100ML 10 MEQ/100 ML BAG IV ONE ×2 (01:34→02:21)
[2017-06-03] MEDS ORDERED: BACTRIM DS ONE (01:41)
[2017-06-03] MEDS ORDERED: TYLENOL ONE (01:42)
[2017-06-03] MEDS ORDERED: ZOFRAN ONE (01:43)
[2017-06-03] MEDS ORDERED: NACL 0.9% 1000 ML 1,000 ML ONE ×2 (01:43→02:21)
[2017-06-03] MEDS ORDERED: XOPENEX IH ONE (01:44)
[2017-06-03] MEDS ORDERED: ATROVENT IH ONE (01:44)
[2017-06-03] MEDS ORDERED: APRESOLINE IV ONE (02:00)
[2017-06-03] MEDS: BACTRIM DS PO SCH ×3 (02:00→21:46)
[2017-06-03] MEDS: NACL 0.45% 1000 ML 1,000 ML IV SCH (05:03)
[2017-06-03] MEDS: APRESOLINE PO SCH ×3 (05:07→21:46)
[2017-06-03] MEDS ORDERED: APRESOLINE ONE (06:46)
--- NOTE | 2017-06-03 09:30 | XRay Report ---
ROUTINE CHEST, TWO VIEWS: HISTORY: Cough, fever. The trachea, heart, mediastinal contour, lung hill and bony thorax are unremarkable. The aorta is mildly ectatic which is unchanged since 04/20/17. IMPRESSION: Unremarkable chest x-ray.
--- NOTE | 2017-06-03 10:16 | Progress Note ---
Assessment and Plan Assessment and plan: Acute gastroenteritis. Continue iv fluids. Stool culture ordered Fever. Blood and Urine cultures pending Chronic kidney disease. May consider consulting Nephrology Hypertensive urgency. BP very elevated . Add Clonidine po bid HIV. Recently diagnosed, has not gone for follow up to start meds Oral thrush. Started on Fluconazole Seizure disorder. Continue keppra Medical non-compliance DVT prophylaxis. Heparin subcut Full code status History Interval history: Fever, cough Nausea and vomiting abdominal pain Hospitalist Physical - Physical exam Narrative exam: Gen appearance: Not in acute distress HEENT: normocephalic, atraumatic,oral thrush Neck: supple, no JVD, Lungs: Clear to auscultation bilaterally, no crackles or wheezes Heart :S1 and S2 regular, no murmurs, rubs or gallop Abdomen: Soft, non tender, non distended, normal bowel sounds Extremities :no edema, no clubbing or cyanosis Neuro: AAO x 3, no focal neurological signs - Constitutional Vitals: Temp Pulse Resp BP Pulse Ox 97.8 F 96 H 22 170/104 97 06/03/17 08:00 06/03/17 08:00 06/03/17 08:00 06/03/17 08:00 06/03/17 08:00 Results - Labs CBC & Chem 7: 06/02/17 15:19 06/02/17 15:19 Labs: Laboratory Last Values WBC 8.2 K/mm3 (4.5-11.0) 06/02/17 15:19 RBC 4.30 M/mm3 (3.65-5.03) 06/02/17 15:19 Hgb 10.9 gm/dl (11.8-15.2) L 06/02/17 15:19 Hct 32.7 % (35.5-45.6) L 06/02/17 15:19 MCV 76 fl (84-94) L 06/02/17 15:19 MCH 25 pg (28-32) L 06/02/17 15:19 MCHC 33 % (32-34) 06/02/17 15:19 RDW 15.8 % (13.2-15.2) H 06/02/17 15:19 Plt Count 236 K/mm3 (140-440) 06/02/17 15:19 Add Manual Diff Complete 06/02/17 15:19 Total Counted 100 06/02/17 15:19 Seg Neuts % (Manual) 74.0 % (40.0-70.0) H 06/02/17 15:19 Band Neutrophils % 16.0 % 06/02/17 15:19 Lymphocytes % (Manual) 5.0 % (13.4-35.0) L 06/02/17 15:19 Reactive Lymphs % (Man) 0 % 06/02/17 15:19 Monocytes % (Manual) 5.0 % (0.0-7.3) 06/02/17 15:19 Eosinophils % (Manual) 0 % (0.0-4.3) 06/02/17 15:19 Basophils % (Manual) 0 % (0.0-1.8) 06/02/17 15:19 Metamyelocytes % 0 % 06/02/17 15:19 Myelocytes % 0 % 06/02/17 15:19 Promyelocytes % 0 % 06/02/17 15:19 Blast Cells % 0 % 06/02/17 15:19 Nucleated RBC % Not Reportable 06/02/17 15:19 Seg Neutrophils # Man 6.1 K/mm3 (1.8-7.7) 06/02/17 15:19 Band Neutrophils # 1.3 K/mm3 06/02/17 15:19 Lymphocytes # (Manual) 0.4 K/mm3 (1.2-5.4) L 06/02/17 15:19 Abs React Lymphs (Man) 0.0 K/mm3 06/02/17 15:19 Monocytes # (Manual) 0.4 K/mm3 (0.0-0.8) 06/02/17 15:19 Eosinophils # (Manual) 0.0 K/mm3 (0.0-0.4) 06/02/17 15:19 Basophils # (Manual) 0.0 K/mm3 (0.0-0.1) 06/02/17 15:19 Metamyelocytes # 0.0 K/mm3 06/02/17 15:19 Myelocytes # 0.0 K/mm3 06/02/17 15:19 Promyelocytes # 0.0 K/mm3 06/02/17 15:19 Blast Cells # 0.0 K/mm3 06/02/17 15:19 WBC Morphology Not Reportable 06/02/17 15:19 Hypersegmented Neuts Not Reportable 06/02/17 15:19 Hyposegmented Neuts Not Reportable 06/02/17 15:19 Hypogranular Neuts Not Reportable 06/02/17 15:19 Smudge Cells Not Reportable 06/02/17 15:19 Toxic Granulation Not Reportable 06/02/17 15:19 Toxic Vacuolation Not Reportable 06/02/17 15:19 Dohle Bodies Not Reportable 06/02/17 15:19 Pelger-Huet Anomaly Not Reportable 06/02/17 15:19 Dana Rods Not Reportable 06/02/17 15:19 Platelet Estimate Consistent w auto 06/02/17 15:19 Clumped Platelets Not Reportable 06/02/17 15:19 Plt Clumps, EDTA Not Reportable 06/02/17 15:19 Large Platelets Not Reportable 06/02/17 15:19 Giant Platelets Not Reportable 06/02/17 15:19 Platelet Satelliting Not Reportable 06/02/17 15:19 Plt Morphology Comment Not Reportable 06/02/17 15:19 RBC Morphology Not Reportable 06/02/17 15:19 Dimorphic RBCs Not Reportable 06/02/17 15:19 Polychromasia Not Reportable 06/02/17 15:19 Hypochromasia Not Reportable 06/02/17 15:19 Poikilocytosis Not Reportable 06/02/17 15:19 Anisocytosis 1+ 06/02/17 15:19 Microcytosis Not Reportable 06/02/17 15:19 Macrocytosis Not Reportable 06/02/17 15:19 Spherocytes Not Reportable 06/02/17 15:19 Pappenheimer Bodies Not Reportable 06/02/17 15:19 Sickle Cells Not Reportable 06/02/17 15:19 Target Cells Not Reportable 06/02/17 15:19 Tear Drop Cells Not Reportable 06/02/17 15:19 Ovalocytes Not Reportable 06/02/17 15:19 Helmet Cells Not Reportable 06/02/17 15:19 [place] Bodies Not Reportable 06/02/17 15:19 [place] Rings Not Reportable 06/02/17 15:19 Rhianna Cells Not Reportable 06/02/17 15:19 Bite Cells Not Reportable 06/02/17 15:19 Crenated Cell Not Reportable 06/02/17 15:19 Elliptocytes 1+ 06/02/17 15:19 Acanthocytes (Spur) Not Reportable 06/02/17 15:19 Rouleaux Not Reportable 06/02/17 15:19 Hemoglobin C Crystals Not Reportable 06/02/17 15:19 Schistocytes Not Reportable 06/02/17 15:19 Malaria parasites Not Reportable 06/02/17 15:19 [place] Bodies Not Reportable 06/02/17 15:19 Hem Pathologist Commnt No 06/02/17 15:19 PT 13.9 Sec. (12.2-14.9) 06/02/17 15:19 INR 1.08 (0.87-1.13) 06/02/17 15:19 VBG pH 7.373 (7.320-7.420) 06/02/17 15:19 Sodium 136 mmol/L (137-145) L 06/02/17 15:19 Potassium 3.4 mmol/L (3.6-5.0) L 06/02/17 15:19 Chloride 97.0 mmol/L (98-107) L 06/02/17 15:19 Carbon Dioxide 20 mmol/L (22-30) L 06/02/17 15:19 Anion Gap 22 mmol/L 06/02/17 15:19 BUN 38 mg/dL (9-20) H 06/02/17 15:19 Creatinine 4.2 mg/dL (0.8-1.5) H 06/02/17 15:19 Estimated GFR 16 ml/min 06/02/17 15:19 BUN/Creatinine Ratio 9.04 % 06/02/17 15:19 Glucose 107 mg/dL (75-100) H 06/02/17 15:19 Lactic Acid 1.00 mmol/L (0.7-2.0) 06/02/17 23:09 Calcium 9.4 mg/dL (8.4-10.2) 06/02/17 15:19 Total Bilirubin 0.60 mg/dL (0.1-1.2) 06/02/17 15:19 AST 42 units/L (5-40) H 06/02/17 15:19 ALT 15 units/L (7-56) 06/02/17 15:19 Alkaline Phosphatase 58 units/L (35-129) 06/02/17 15:19 Total Protein 8.9 g/dL (6.3-8.2) H 06/02/17 15:19 Albumin 3.6 g/dL (3.9-5) L 06/02/17 15:19 Albumin/Globulin Ratio 0.7 % 06/02/17 15:19 Urine Color Yellow (Yellow) 06/02/17 15:22 Urine Turbidity Clear (Clear) 06/02/17 15:22 Urine pH 7.0 (5.0-7.0) 06/02/17 15:22 Ur Specific [place] 1.014 (1.003-1.030) 06/02/17 15:22 Urine Protein >500 mg/dL (Negative) 06/02/17 15:22 Urine Glucose (UA) Neg mg/dL (Negative) 06/02/17 15:22 Urine Ketones Neg mg/dL (Negative) 06/02/17 15:22 Urine Blood Neg (Negative) 06/02/17 15:22 Urine Nitrite Neg (Negative) 06/02/17 15:22 Urine Bilirubin Neg (Negative) 06/02/17 15:22 Urine Urobilinogen < 2.0 mg/dL (<2.0) 06/02/17 15:22 Ur Leukocyte Esterase Tr (Negative) 06/02/17 15:22 Urine WBC (Auto) 5.0 /HPF (0.0-6.0) 06/02/17 15:22 Urine RBC (Auto) 4.0 /HPF (0.0-6.0) 06/02/17 15:22 U Epithel Cells (Auto) 1.0 /HPF (0-13.0) 06/02/17 15:22 Urine Bacteria (Auto) 1+ /HPF (Negative) 06/02/17 15:22 Urine Mucus Few /HPF 06/02/17 15:22
[2017-06-03] MEDS: IMDUR PO SCH (10:38)
[2017-06-03] MEDS: PROCARDIA XL PO SCH (10:38)
[2017-06-03] MEDS: KEPPRA PO SCH ×2 (10:39→21:46)
[2017-06-03] MEDS: DIFLUCAN/NS 100 MG/50 ML 100 MG/50 ML BAG IV SCH (10:39)
[2017-06-03] MEDS ORDERED: PNEUMOVAX 23 IM ONE (12:00)
[2017-06-03] MEDS ORDERED: CATAPRES PO PRN (12:32)
--- NOTE | 2017-06-03 14:58 | Consultation ---
History of Present Illness - Reason for Consult Consult date: 06/03/17 fever, cough, diarrhea Requesting physician: RONEY DELCID - History of Present Illness 36-year-old man with history of hypertension, chronic kidney disease, seizure, tobacco dependency, HIV diagnosed on 04/11/17 VL [id number], he has not seen HIV clinic, admitted on 06/02/17 due to 5-day history of nausea, vomiting, diarrhea and 5 week-history of productive cough with white sputum associated with mild SOB and weight loss ~30L in 3 months. Patient was admitted to [facility] on 04/10- due to altered mental status and new-onset seizures, bp 235/156, Cr 4.6. CT head neg. Foud with Thrombocytopenia and leukopenia and was tested for HIV which came positive. Patient has no medical insurance and has not seen HIV clinic since discharge. In the ED, temp 100.8, HR 137, BP 196/137, WBC 8.2, Hg 10.9, creat 4.2, CXR neg. UA neg. Current Antimicrobials: fluconazole bactrim DS Previous Antimicrobials: Microbiology: Blood cultures: 06/02 neg Urine cultures: 06/02 10-100K mixed sp Respiratory cultures: Wound cultures: Stool cultures: Other: Past History Past Medical History: HIV/AIDS, hypertension, renal failure, other (HIV diagnosed in April 2017) Past Surgical History: No surgical history Social history: single, smoking, alcohol abuse, other (sexually active 3 partners female and males no protection. ). denies: IV drug use Medications and Allergies Allergies Allergy/AdvReac Type Severity Reaction Status Date / Time No Known Allergies Allergy Unverified 04/10/17 15:20 Home Medications Medication Instructions Recorded Confirmed Last Taken Type Acetaminophen [Acetaminophen TAB] 325 mg PO Q6H PRN #30 tablet 04/14/17 Unknown Rx ISOSORBIDE MONOnitrate [Imdur ER] 30 mg PO QDAY #30 tablet 04/14/17 06/03/17 Unknown Rx Spironolactone [Aldactone] 25 mg PO BID #60 tablet 04/14/17 06/03/17 Unknown Rx levETIRAcetam [Keppra TAB] 500 mg PO BID #60 tablet 04/14/17 06/03/17 Unknown Rx NIFEdipine XL [Procardia Xl] 90 mg PO QDAY #30 tablet 04/15/17 06/03/17 Unknown Rx hydrALAZINE [Apresoline TAB] 100 mg PO Q8HR #1 mo 04/15/17 06/03/17 Unknown Rx Active Meds: Active Medications Acetaminophen (Tylenol) 650 mg PO Q4H PRN PRN Reason: Pain MILD(1-3)/Fever >100.5/DYE Albuterol (Proventil) 2.5 mg IH Q3HRT PRN PRN Reason: Shortness Of Breath Bisacodyl (Dulcolax) 10 mg AL QDAY PRN PRN Reason: Constipation unrelieved by MOM Clonidine HCl (Catapres) 0.2 mg PO Q4H PRN PRN Reason: For SBP>170 or DBP>110 Last Admin: 06/03/17 13:45 Dose: 0.2 mg Hydralazine HCl (Apresoline) 100 mg PO Q8HR [facility] Last Admin: 06/03/17 13:46 Dose: 100 mg Fluconazole (Diflucan/Ns 100 Mg/50 Ml) 100 mg in 50 mls @ 50 mls/hr IV Q24HR [facility] Last Admin: 06/03/17 10:39 Dose: 50 mls/hr Sodium Chloride (Nacl 0.45% 1000 Ml) 1,000 mls @ 75 mls/hr IV DIRECT [facility] Last Admin: 06/03/17 05:03 Dose: 75 mls/hr Isosorbide Mononitrate (Imdur) 30 mg PO QDAY [facility] Last Admin: 06/03/17 10:38 Dose: 30 mg Levetiracetam (Keppra) 500 mg PO BID [facility] Last Admin: 06/03/17 10:39 Dose: 500 mg Magnesium Hydroxide (Milk Of Magnesia) 30 ml PO Q4H PRN PRN Reason: Constipation Nifedipine (Procardia Xl) 90 mg PO QDAY [facility] Last Admin: 06/03/17 10:38 Dose: 90 mg Ondansetron HCl (Zofran) 4 mg IV Q8H PRN PRN Reason: N/V unrelieved by Reglan Trimethoprim/Sulfamethoxazole (Bactrim Ds) 1 each PO Q12HR [facility] Last Admin: 06/03/17 10:38 Dose: 1 each Physical Examination - Physical Exam Narrative exam: General appearance: Alert in NAD, conversant Eyes: anicteric sclerae, moist conjunctivae; no lid-lag; PERRLA HENT: Atraumatic; +oral thrush Neck: Trachea midline; supple, no thyromegaly or lymphadenopathy Lungs: harsha rhonchi CV: tachy Abdomen: Soft, non-tender; no masses or hepatosplenomegaly Extremities: No peripheral edema or extremity lymphadenopathy Skin: Normal temperature, turgor and texture; no rash, ulcers or subcutaneous nodules Psych: Appropriate affect, alert and oriented to person, place and time. Neuro: alert and oriented x 3. Moving all extermities Lines: No CVL / PICC - Constitutional Vitals: Vital Signs Temp Pulse Resp BP Pulse Ox 98.0 F 89 22 184/124 98 06/03/17 12:12 06/03/17 13:45 06/03/17 12:12 06/03/17 13:45 06/03/17 12:12 Temperature -Last 24 Hours Temperature 98.0 F Temperature 97.8 F Temperature 100.4 F Results - Labs CBC & Chem 7: 06/02/17 15:19 06/02/17 15:19 - Imaging and Cardiology Chest x-ray: report reviewed Assessment and Plan Assessment: 1) Sepsis: Present on admission, manifested by fever, tachycardia. Etiology ? gastroenteritis ? Pneumonia 2) Diarrhea: ? from AIDS or opportunistic infection 3) Cough: CXR neg; ? PJP pneumonia 4) AIDS: VL found at [id number] on 04/12/17, unknown CD4. Never treated. He was not taking any prophylaxis. 5) KEATON ? hypertensive nephropathy versus AIDS-related 6) Oral candidiasis 7) HTN - uncontrolled Plan: -follow-up blood cultures -check UA, urine culture -check stool for O+P, cryptosporidium, giardia, C diff -obtain procalcitonin, C-reactive protein (CRP) -check cryptococcal serum antigen, AFB blood cultures -check CD4 -continue Bactrim IV renally dosed for PCP treatment -continue Fluconazole -add azithromycin 1600 mg q week for MAC prophylaxis -repeat CXR tomorrow Thank you Dr Delcid for your consultation, will follow up with you. Cydney Ash MD Infectious Diseases Specialist [facility] ([facility] M [phone] O [phone]
[2017-06-03] MEDS ORDERED: CATAPRES PO SCH (17:00)
[2017-06-03] MEDS: HEPARIN SUB-Q SCH (21:45)
[2017-06-03] MEDS: CATAPRES PO SCH (21:45)
--- NOTE | 2017-06-04 02:12 | Admit Criteria Form ---
Admission Criteria Documentation: PNEUMONIA, COMMUNITY ACQUIRED Clinical Indications for Admission to Inpatient Care (Place ' X' for any and all applicable criteria): Admission to inpatient status for two midnights or more is indicated for ANY ONE of the following (1)(2)(3): [ ]I. Hypoxia [ ]II. Hemodynamic instability [ ]III. Altered mental status that is severe or persistent [ ]IV. Dehydration that is severe or persistent. [ ]V. Bacteremia [ ]. Moderate-risk or high-risk category patients (Pneumonia Severity Index ( PSI) class IV or V, or CURB-65 score of 3 or greater). [ ]VII. Intermediate-risk category patients (e.g., PSI class III or CURB-65 score 2) who do not improve with outpatient and observation care treatment [ ]VIII. Outpatient treatment failure as indicated by 1 or more of the following(9): [ ]a) Failure to respond to antibiotic (eg, resistant organism) [ ]b) Clinically significant adverse effects from medication (eg, vomiting) [ ]c) Complications of pneumonia (eg, empyema, bacteremia) [ ]d) Significant worsening of comorbid cond necessitating inpatient care (eg, chronic heart failure) [ ]IX. Appropriate diagnostic testing and treatment unavailable in outpatient or recovery facility (eg, testing or infection control measures unavailable) [ ]X. Respiratory finding (eg. tachypnea) that do not respond to outpatient observation care treatment [ ]XI. Complicated pleural effusions (eg, emphysema, exudative, loculated) [X]XII. Immunocompromised patients (e.g., AIDS, chronic steroid use) at moderate or high risk based on clinical evaluation. Extended stay beyond goal length of stay may be needed for (20) [ ]a) Unclear diagnosis [ ]b) Pleural disease [ ]c) Severe pneumonia or treatment failure [ ]d) Respiratory failure [ ]e) New onset hyponatremia (serum Na concentration less than 135 mEq/L(mmol/ L) [ ]f) Clinically significant comorbid illness (eg, heart failure, atrial fibrillation with rapid heart rate, alcohol withdrawal, renal insufficiency)(34)(35) [ ]g) Comorbid acute exacerbation of COPD(36) [ ]h) Concomitant diagnosis of malignancy [ ]i) Concomitant altered mental status [ ]j) Culture-identified Gram-negative or antibiotic-resistant organism (eg, Pseudomonas, methicillin-resistant Staphylococcus aureus MRSA)(30) [ ]k) Healthcare-associated pneumonia (36) The original [facility] [employer] content created by [facility] has been revised. The portions of the content which have been revised are identified through the use of italic text or in bold, and [facility] has neither reviewed nor approved the modified material. All other unmodified content is copyright [facility] [employer] [facility]. Please see references footnoted in the original [facility] edition 2016 Admission Criteria Met: Yes
[2017-06-04] MEDS: NACL 0.45% 1000 ML 1,000 ML IV SCH ×2 (04:15→20:02)
[2017-06-04] MEDS: APRESOLINE PO SCH ×3 (05:30→22:37)
[2017-06-04 07:27] LABS: Hematocrit 27.3 % (35.5-45.6); Mean Corpuscular HGB Conc 33 % (32-34); Mean Corpuscular Volume 76 fl (84-94); Platelet Count 218 K/mm3 (140-440); Red Blood Count 3.61 M/mm3 (3.65-5.03); Red Cell Distribution Width 15.9 % (13.2-15.2); White Blood Count 12.9 K/mm3 (4.5-11.0)
[2017-06-04 07:42] LABS: BUN/Creatinine Ratio 11.36; Calcium 8.6 mg/dL (8.4-10.2); Chloride 101.2 mmol/L (98-107); Potassium 4.1 mmol/L (3.6-5.0)
[2017-06-04 07:45] LABS: Mean Corpuscular Hemoglobin 25 pg (28-32)
--- NOTE | 2017-06-04 09:55 | Consultation ---
History of Present Illness - Reason for Consult Consult date: 06/04/17 - History of Present Illness Mr. Cao is a 36yo with CKD and HIV who presented to the ED with hx of fever. He reports being in [facility] until appx 1 week ago when he began experiencing fever and productive sputum. He also reports nausea/vomting. He reports taking Ibuprofen periodically. At present, patient reports that he is feeling better. He denies chest pain and SOB. Past History Past Medical History: HIV/AIDS, hypertension, renal failure, other (HIV diagnosed in April 2017) Past Surgical History: No surgical history Social history: single, smoking, alcohol abuse, other (sexually active 3 partners female and males no protection. ). denies: IV drug use Medications and Allergies Allergies Allergy/AdvReac Type Severity Reaction Status Date / Time No Known Allergies Allergy Unverified 04/10/17 15:20 Home Medications Medication Instructions Recorded Confirmed Last Taken Type Acetaminophen [Acetaminophen TAB] 325 mg PO Q6H PRN #30 tablet 04/14/17 Unknown Rx ISOSORBIDE MONOnitrate [Imdur ER] 30 mg PO QDAY #30 tablet 04/14/17 06/03/17 Unknown Rx Spironolactone [Aldactone] 25 mg PO BID #60 tablet 04/14/17 06/03/17 Unknown Rx levETIRAcetam [Keppra TAB] 500 mg PO BID #60 tablet 04/14/17 06/03/17 Unknown Rx NIFEdipine XL [Procardia Xl] 90 mg PO QDAY #30 tablet 04/15/17 06/03/17 Unknown Rx hydrALAZINE [Apresoline TAB] 100 mg PO Q8HR #1 mo 04/15/17 06/03/17 Unknown Rx Active Meds: Active Medications Acetaminophen (Tylenol) 650 mg PO Q4H PRN PRN Reason: Pain MILD(1-3)/Fever >100.5/DYE Albuterol (Proventil) 2.5 mg IH Q3HRT PRN PRN Reason: Shortness Of Breath Bisacodyl (Dulcolax) 10 mg MS QDAY PRN PRN Reason: Constipation unrelieved by MOM Clonidine HCl (Catapres) 0.1 mg PO Q12HR [facility] Last Admin: 06/03/17 21:45 Dose: 0.1 mg Heparin Sodium (Porcine) (Heparin) 5,000 unit SUB-Q Q12HR [facility] Last Admin: 06/03/17 21:45 Dose: 5,000 unit Hydralazine HCl (Apresoline) 100 mg PO Q8HR [facility] Last Admin: 06/04/17 05:30 Dose: 100 mg Fluconazole (Diflucan/Ns 100 Mg/50 Ml) 100 mg in 50 mls @ 50 mls/hr IV Q24HR [facility] Last Admin: 06/03/17 10:39 Dose: 50 mls/hr Sodium Chloride (Nacl 0.45% 1000 Ml) 1,000 mls @ 75 mls/hr IV DIRECT [facility] Last Admin: 06/04/17 04:15 Dose: 75 mls/hr Isosorbide Mononitrate (Imdur) 30 mg PO QDAY [facility] Last Admin: 06/03/17 10:38 Dose: 30 mg Levetiracetam (Keppra) 500 mg PO BID [facility] Last Admin: 06/03/17 21:46 Dose: 500 mg Magnesium Hydroxide (Milk Of Magnesia) 30 ml PO Q4H PRN PRN Reason: Constipation Nifedipine (Procardia Xl) 90 mg PO QDAY [facility] Last Admin: 06/03/17 10:38 Dose: 90 mg Ondansetron HCl (Zofran) 4 mg IV Q8H PRN PRN Reason: N/V unrelieved by Alvaro Trimethoprim/Sulfamethoxazole (Bactrim Ds) 1 each PO Q12HR [facility] Last Admin: 06/03/17 21:46 Dose: 1 each Review of Systems Constitutional: fever Respiratory: cough, no shortness of breath, no dyspnea on exertion Gastrointestinal: nausea, vomiting, no abdominal pain, no diarrhea Genitourinary Male: no dysuria Integumentary: no rash Exam - Vital Signs Vital signs: Vital Signs Temp Pulse Resp BP Pulse Ox 100.8 F H 137 H 26 H 196/137 99 06/02/17 14:50 06/02/17 14:50 06/02/17 14:50 06/02/17 14:50 06/02/17 14:50 - General Appearance General appearance: well-developed, well-nourished EENT: ATNC Respiratory: Clear to Ascultation Heart: regular, S1S2 Gastrointestinal: Present: normal Integumentary: no rash Neurologic: no focal deficit Musculoskeletal: Present: other (no edema) Psychiatric: cooperative Results - Lab Results 06/04/17 06:30 06/04/17 06:30 Most recent lab results Calcium 8.6 mg/dL (8.4-10.2) 06/04/17 06:30 Assessment and Plan IMPRESSION * Stage III chronic kidney disease secondary to hypertensive nephrosclerosis vs HIVAN --24h urine CrCl 35ml/min (April 2017) * Fever * Presumed PCP * HIV - dx April 2017 * Metabolic acidosis * Hypertension * Proteinuria, subnephrotic PLAN: * Renal function is stable. Continue current management * Fever work up and abx per ID * Note Bactrim - dose adjusted for renal function; monitor K closely as patient is also taking Aldactone * Continue antiHTN medications * Dose medications for renal function * Avoid potential nephrotoxins. * AM labs
[2017-06-04 10:37] LABS: Blastocytes % (Manual) 0 %
[2017-06-04 10:38] LABS: Anisocytosis 1+; Basophils % (Manual) 0 % (0.0-1.8); Elliptocytes 1+; Eosinophils % (Manual) 0 % (0.0-4.3); Polychromasia Few
[2017-06-04 10:39] LABS: Burr Cells 1+; Poikilocytosis 1+
[2017-06-04 10:41] LABS: Diff Status Complete
[2017-06-04] MEDS: DIFLUCAN/NS 100 MG/50 ML 100 MG/50 ML BAG IV SCH (10:54)
[2017-06-04] MEDS: HEPARIN SUB-Q SCH ×2 (10:55→22:26)
[2017-06-04] MEDS: PROCARDIA XL PO SCH (10:55)
[2017-06-04] MEDS: IMDUR PO SCH (10:55)
[2017-06-04] MEDS: KEPPRA PO SCH ×2 (10:55→22:37)
[2017-06-04] MEDS: CATAPRES PO SCH ×2 (10:55→22:37)
[2017-06-04] MEDS: BACTRIM DS PO SCH ×2 (10:55→20:03)
--- NOTE | 2017-06-04 14:38 | Progress Note ---
Assessment and Plan Assessment: 1) Sepsis: improving. Etiology ? gastroenteritis ? Pneumonia -CRP=16 2) Diarrhea: ? from AIDS or opportunistic infection - improving 3) Cough: CXR neg; ? PJP pneumonia - better 4) AIDS: VL found at 107,951 on 04/12/17, unknown CD4. Never treated. He was not taking any prophylaxis. 5) KEATON ? hypertensive nephropathy versus AIDS-related 6) Oral candidiasis - better 7) HTN - uncontrolled Plan: -follow-up blood cultures -f/u stool for O+P, cryptosporidium, giardia, C diff -f/u procalcitonin -f/u cryptococcal serum antigen, AFB blood cultures -f/u CD4 -continue Bactrim po renally dosed for PCP treatment -continue Fluconazole -add azithromycin 1600 mg q week for MAC prophylaxis -repeat CXR tomorrow Thank you Dr Richardson for your consultation, will follow up with you. Cydney Ash MD Infectious Diseases Specialist [facility] M [phone] O [phone] Subjective Date of service: 06/04/17 Interval history: Feels better, decreased cough and SOB. No fever last 24h. Current Antimicrobials: 06/03 fluconazole 06/04 bactrim DS Previous Antimicrobials: Microbiology: Blood cultures: 06/02 neg Urine cultures: 06/02 10-100K mixed sp Respiratory cultures: Wound cultures: Stool cultures: Other: Objective - Exam Narrative Exam: General appearance: Alert in NAD, conversant Eyes: anicteric sclerae, moist conjunctivae; no lid-lag; PERRLA HENT: Atraumatic; +oral thrush Neck: Trachea midline; supple, no thyromegaly or lymphadenopathy Lungs: harsha rhonchi CV: tachy Abdomen: Soft, non-tender; no masses or hepatosplenomegaly Extremities: No peripheral edema or extremity lymphadenopathy Skin: Normal temperature, turgor and texture; no rash, ulcers or subcutaneous nodules Psych: Appropriate affect, alert and oriented to person, place and time. Neuro: alert and oriented x 3. Moving all extermities Lines: No CVL / PICC - Constitutional Vitals: Vital Signs Temp Pulse Resp BP Pulse Ox 97.9 F 86 20 128/82 97 06/04/17 07:00 06/04/17 10:55 06/04/17 07:00 06/04/17 10:55 06/04/17 09:41 Temperature -Last 24 Hours Temperature 97.9 F Temperature 97.9 F Temperature 98.3 F - Labs CBC & Chem 7: 06/04/17 06:30 06/04/17 06:30 Labs: Abnormal lab results 06/03/17 06/04/17 06/04/17 Range/Units 16:36 06:30 06:30 WBC 12.9 H (4.5-11.0) K/mm3 RBC 3.61 L (3.65-5.03) M/mm3 Hgb 9.0 L (11.8-15.2) gm/dl Hct 27.3 L (35.5-45.6) % MCV 76 L (84-94) fl MCH 25 L (28-32) pg RDW 15.9 H (13.2-15.2) % Seg Neuts % (Manual) 83.0 H (40.0-70.0) % Lymphocytes % (Manual) 3.0 L (13.4-35.0) % Monocytes % (Manual) 9.0 H (0.0-7.3) % Seg Neutrophils # Man 10.7 H (1.8-7.7) K/mm3 Lymphocytes # (Manual) 0.4 L (1.2-5.4) K/mm3 Monocytes # (Manual) 1.2 H (0.0-0.8) K/mm3 Sodium 136 L (137-145) mmol/L Carbon Dioxide 17 L (22-30) mmol/L BUN 50 H (9-20) mg/dL Creatinine 4.4 H (0.8-1.5) mg/dL Glucose 109 H (75-100) mg/dL C-Reactive Protein 15.20 H (0.00-1.30) mg/dL
--- NOTE | 2017-06-04 18:12 | Progress Note ---
Assessment and Plan Assessment and plan: Sepsis, present on admission. Blood cultures drawn. Acute gastroenteritis. Continue iv fluids. Stool WBC, culture,ova /parasites ordered. Fever. Blood and Urine cultures pending Chronic kidney disease. patient noncompliant. Nephrology consulted. Hypertensive urgency. BP now stable after adding Clonidine HIV. Recently diagnosed, has not gone for follow up to start meds. CD4 count ordered Oral thrush. Started on Fluconazole Seizure disorder. Continue keppra Medical non-compliance. I discussed compliance with doctor appointments and medications DVT prophylaxis. Heparin subcut Full code status History Interval history: feels better, Fever yesterday but no fever today, less cough Nausea and vomiting abdominal pain Hospitalist Physical - Physical exam Narrative exam: Gen appearance: Not in acute distress HEENT: normocephalic, atraumatic,oral thrush Neck: supple, no JVD, Lungs: Clear to auscultation bilaterally, no crackles or wheezes Heart :S1 and S2 regular, no murmurs, rubs or gallop Abdomen: Soft, non tender, non distended, normal bowel sounds Extremities :no edema, no clubbing or cyanosis Neuro: AAO x 3, no focal neurological signs - Constitutional Vitals: Temp Pulse Resp BP Pulse Ox 98.2 F 93 H 20 124/65 97 06/04/17 16:00 06/04/17 16:00 06/04/17 16:00 06/04/17 16:00 06/04/17 09:41 Results - Labs CBC & Chem 7: 06/04/17 06:30 06/04/17 06:30 Labs: Laboratory Last Values WBC 12.9 K/mm3 (4.5-11.0) H 06/04/17 06:30 RBC 3.61 M/mm3 (3.65-5.03) L 06/04/17 06:30 Hgb 9.0 gm/dl (11.8-15.2) L 06/04/17 06:30 Hct 27.3 % (35.5-45.6) L 06/04/17 06:30 MCV 76 fl (84-94) L 06/04/17 06:30 MCH 25 pg (28-32) L 06/04/17 06:30 MCHC 33 % (32-34) 06/04/17 06:30 RDW 15.9 % (13.2-15.2) H 06/04/17 06:30 Plt Count 218 K/mm3 (140-440) 06/04/17 06:30 Add Manual Diff Complete 06/04/17 06:30 Total Counted 100 06/04/17 06:30 Seg Neuts % (Manual) 83.0 % (40.0-70.0) H 06/04/17 06:30 Band Neutrophils % 4.0 % 06/04/17 06:30 Lymphocytes % (Manual) 3.0 % (13.4-35.0) L 06/04/17 06:30 Reactive Lymphs % (Man) 1.0 % 06/04/17 06:30 Monocytes % (Manual) 9.0 % (0.0-7.3) H 06/04/17 06:30 Eosinophils % (Manual) 0 % (0.0-4.3) 06/04/17 06:30 Basophils % (Manual) 0 % (0.0-1.8) 06/04/17 06:30 Metamyelocytes % 0 % 06/04/17 06:30 Myelocytes % 0 % 06/04/17 06:30 Promyelocytes % 0 % 06/04/17 06:30 Blast Cells % 0 % 06/04/17 06:30 Nucleated RBC % Not Reportable 06/04/17 06:30 Seg Neutrophils # Man 10.7 K/mm3 (1.8-7.7) H 06/04/17 06:30 Band Neutrophils # 0.5 K/mm3 06/04/17 06:30 Lymphocytes # (Manual) 0.4 K/mm3 (1.2-5.4) L 06/04/17 06:30 Abs React Lymphs (Man) 0.1 K/mm3 06/04/17 06:30 Monocytes # (Manual) 1.2 K/mm3 (0.0-0.8) H 06/04/17 06:30 Eosinophils # (Manual) 0.0 K/mm3 (0.0-0.4) 06/04/17 06:30 Basophils # (Manual) 0.0 K/mm3 (0.0-0.1) 06/04/17 06:30 Metamyelocytes # 0.0 K/mm3 06/04/17 06:30 Myelocytes # 0.0 K/mm3 06/04/17 06:30 Promyelocytes # 0.0 K/mm3 06/04/17 06:30 Blast Cells # 0.0 K/mm3 06/04/17 06:30 WBC Morphology Not Reportable 06/04/17 06:30 Hypersegmented Neuts Not Reportable 06/04/17 06:30 Hyposegmented Neuts Not Reportable 06/04/17 06:30 Hypogranular Neuts Not Reportable 06/04/17 06:30 Smudge Cells Not Reportable 06/04/17 06:30 Toxic Granulation Not Reportable 06/04/17 06:30 Toxic Vacuolation Not Reportable 06/04/17 06:30 Dohle Bodies Not Reportable 06/04/17 06:30 Pelger-Huet Anomaly Not Reportable 06/04/17 06:30 Dana Rods Not Reportable 06/04/17 06:30 Platelet Estimate Appears normal 06/04/17 06:30 Clumped Platelets Not Reportable 06/04/17 06:30 Plt Clumps, EDTA Not Reportable 06/04/17 06:30 Large Platelets Not Reportable 06/04/17 06:30 Giant Platelets Not Reportable 06/04/17 06:30 Platelet Satelliting Not Reportable 06/04/17 06:30 Plt Morphology Comment Not Reportable 06/04/17 06:30 RBC Morphology Not Reportable 06/04/17 06:30 Dimorphic RBCs Not Reportable 06/04/17 06:30 Polychromasia Few 06/04/17 06:30 Hypochromasia Not Reportable 06/04/17 06:30 Poikilocytosis 1+ 06/04/17 06:30 Anisocytosis 1+ 06/04/17 06:30 Microcytosis Not Reportable 06/04/17 06:30 Macrocytosis Not Reportable 06/04/17 06:30 Spherocytes Not Reportable 06/04/17 06:30 Pappenheimer Bodies Not Reportable 06/04/17 06:30 Sickle Cells Not Reportable 06/04/17 06:30 Target Cells Not Reportable 06/04/17 06:30 Tear Drop Cells Not Reportable 06/04/17 06:30 Ovalocytes Not Reportable 06/04/17 06:30 Helmet Cells Not Reportable 06/04/17 06:30 [place] Bodies Not Reportable 06/04/17 06:30 Myra Rings Not Reportable 06/04/17 06:30 Rhianna Cells 1+ 06/04/17 06:30 Bite Cells Not Reportable 06/04/17 06:30 Crenated Cell Not Reportable 06/04/17 06:30 Elliptocytes 1+ 06/04/17 06:30 Acanthocytes (Spur) Not Reportable 06/04/17 06:30 Rouleaux Not Reportable 06/04/17 06:30 Hemoglobin C Crystals Not Reportable 06/04/17 06:30 Schistocytes Not Reportable 06/04/17 06:30 Malaria parasites Not Reportable 06/04/17 06:30 [place] Bodies Not Reportable 06/04/17 06:30 Hem Pathologist Commnt No 06/04/17 06:30 PT 13.9 Sec. (12.2-14.9) 06/02/17 15:19 INR 1.08 (0.87-1.13) 06/02/17 15:19 VBG pH 7.373 (7.320-7.420) 06/02/17 15:19 Sodium 136 mmol/L (137-145) L 06/04/17 06:30 Potassium 4.1 mmol/L (3.6-5.0) D 06/04/17 06:30 Chloride 101.2 mmol/L (98-107) 06/04/17 06:30 Carbon Dioxide 17 mmol/L (22-30) L 06/04/17 06:30 Anion Gap 22 mmol/L 06/04/17 06:30 BUN 50 mg/dL (9-20) H 06/04/17 06:30 Creatinine 4.4 mg/dL (0.8-1.5) H 06/04/17 06:30 Estimated GFR 15 ml/min 06/04/17 06:30 BUN/Creatinine Ratio 11.36 % 06/04/17 06:30 Glucose 109 mg/dL (75-100) H 06/04/17 06:30 Lactic Acid 1.00 mmol/L (0.7-2.0) 06/02/17 23:09 Calcium 8.6 mg/dL (8.4-10.2) 06/04/17 06:30 Total Bilirubin 0.60 mg/dL (0.1-1.2) 06/02/17 15:19 AST 42 units/L (5-40) H 06/02/17 15:19 ALT 15 units/L (7-56) 06/02/17 15:19 Alkaline Phosphatase 58 units/L (35-129) 06/02/17 15:19 C-Reactive Protein 15.20 mg/dL (0.00-1.30) H 06/03/17 16:36 Total Protein 8.9 g/dL (6.3-8.2) H 06/02/17 15:19 Albumin 3.6 g/dL (3.9-5) L 06/02/17 15:19 Albumin/Globulin Ratio 0.7 % 06/02/17 15:19 Urine Color Yellow (Yellow) 06/02/17 15:22 Urine Turbidity Clear (Clear) 06/02/17 15:22 Urine pH 7.0 (5.0-7.0) 06/02/17 15:22 Ur Specific Jarrell 1.014 (1.003-1.030) 06/02/17 15:22 Urine Protein >500 mg/dL (Negative) 06/02/17 15:22 Urine Glucose (UA) Neg mg/dL (Negative) 06/02/17 15:22 Urine Ketones Neg mg/dL (Negative) 06/02/17 15:22 Urine Blood Neg (Negative) 06/02/17 15:22 Urine Nitrite Neg (Negative) 06/02/17 15:22 Urine Bilirubin Neg (Negative) 06/02/17 15:22 Urine Urobilinogen < 2.0 mg/dL (<2.0) 06/02/17 15:22 Ur Leukocyte Esterase Tr (Negative) 06/02/17 15:22 Urine WBC (Auto) 5.0 /HPF (0.0-6.0) 06/02/17 15:22 Urine RBC (Auto) 4.0 /HPF (0.0-6.0) 06/02/17 15:22 U Epithel Cells (Auto) 1.0 /HPF (0-13.0) 06/02/17 15:22 Urine Bacteria (Auto) 1+ /HPF (Negative) 06/02/17 15:22 Urine Mucus Few /HPF 06/02/17 15:22
[2017-06-04] MEDS ORDERED: BACTRIM DS PO SCH (22:00)
[2017-06-05 05:24] LABS: Hematocrit 27.9 % (35.5-45.6); Hemoglobin 9.2 gm/dl (11.8-15.2); Mean Corpuscular HGB Conc 33 % (32-34); Mean Corpuscular Volume 76 fl (84-94); Platelet Count 281 K/mm3 (140-440); Red Blood Count 3.68 M/mm3 (3.65-5.03); White Blood Count 9.2 K/mm3 (4.5-11.0)
[2017-06-05 05:33] LABS: Mean Corpuscular Hemoglobin 25 pg (28-32)
[2017-06-05 05:40] LABS: BUN/Creatinine Ratio 10.44; Calcium 8.9 mg/dL (8.4-10.2); Chloride 98.1 mmol/L (98-107); Potassium 3.6 mmol/L (3.6-5.0)
[2017-06-05] MEDS: APRESOLINE PO SCH ×3 (07:53→21:59)
[2017-06-05] MEDS: DIFLUCAN/NS 100 MG/50 ML 100 MG/50 ML BAG IV SCH (09:16)
[2017-06-05] MEDS: BACTRIM DS PO SCH ×2 (09:16→13:22)
[2017-06-05] MEDS: CATAPRES PO SCH ×2 (09:17→21:59)
[2017-06-05] MEDS: IMDUR PO SCH (09:17)
[2017-06-05] MEDS: KEPPRA PO SCH ×2 (09:17→21:57)
[2017-06-05] MEDS: PROCARDIA XL PO SCH (09:18)
[2017-06-05] MEDS: HEPARIN SUB-Q SCH ×2 (09:18→21:54)
[2017-06-05] MEDS: NACL 0.45% 1000 ML 1,000 ML IV SCH ×2 (09:24→23:44)
[2017-06-05] MEDS ORDERED: ZITHROMAX PO SCH ×3 (10:00→12:00)
--- NOTE | 2017-06-05 11:45 | XRay Report ---
ROUTINE CHEST, TWO VIEWS: HISTORY: chest pain. The trachea, heart, mediastinal contour, lung hill and bony thorax are unremarkable. IMPRESSION: Unremarkable chest x-ray. No significant change since 06/02/17.
--- NOTE | 2017-06-05 13:33 | Progress Note ---
Assessment and Plan Assessment: 1) Sepsis: still fever 101. Etiology ? gastroenteritis ? Pneumonia -CRP=16 -Serum crypto ag neg 2) Diarrhea: ? from AIDS or opportunistic infection - improving 3) Cough: CXR neg; ? PJP pneumonia - better 4) AIDS: VL found at 107,951 on 04/12/17, unknown CD4. Never treated. He was not taking any prophylaxis. 5) KEATON ? hypertensive nephropathy versus AIDS-related 6) Oral candidiasis - better 7) HTN - uncontrolled Plan: -change bactrim to IV - renally dosed in view of high fever -check CT chest /abd/pelvis w/o contrast -if hypoxemia consider IV solumedrol -f/u stool for O+P, cryptosporidium, giardia, C diff -f/u procalcitonin -f/u cryptococcal serum antigen, AFB blood cultures -f/u CD4 -continue Fluconazole -continue azithromycin 1600 mg q week for MAC prophylaxis Thank you Dr Richardson for your consultation, will follow up with you. Cydney Ash MD Infectious Diseases Specialist [facility] ([facility]) [phone] O [phone] Subjective Date of service: 06/05/17 Interval history: Feels better, decreased cough and SOB. No fever last 24h. Current Antimicrobials: 06/03 fluconazole 06/04 bactrim DS Previous Antimicrobials: Microbiology: Blood cultures: 06/02 neg Urine cultures: 06/02 10-100K mixed sp Respiratory cultures: Wound cultures: Stool cultures: Other: Objective - Constitutional Vitals: Vital Signs Temp Pulse Resp BP Pulse Ox 101.0 F H 107 H 20 144/72 100 06/05/17 07:00 06/05/17 09:17 06/05/17 07:00 06/05/17 09:17 06/05/17 07:00 Temperature -Last 24 Hours Temperature 101.0 F Temperature 98.8 F Temperature 98.2 F - Labs CBC & Chem 7: 06/05/17 04:29 06/05/17 04:29 Labs: Abnormal lab results 06/05/17 06/05/17 Range/Units 04:29 04:29 Hgb 9.2 L (11.8-15.2) gm/dl Hct 27.9 L (35.5-45.6) % MCV 76 L (84-94) fl MCH 25 L (28-32) pg RDW 16.0 H (13.2-15.2) % Sodium 133 L (137-145) mmol/L Carbon Dioxide 16 L (22-30) mmol/L BUN 47 H (9-20) mg/dL Creatinine 4.5 H (0.8-1.5) mg/dL Glucose 113 H (75-100) mg/dL
[2017-06-05] MEDS: BACTRIM 300 MG in D5W 500 ML IV SCH ×2 (15:26→23:39)
--- NOTE | 2017-06-05 17:48 | Progress Note ---
Assessment and Plan Assessment and plan: Sepsis, present on admission. Blood cultures drawn. No growth to date Acute gastroenteritis. Continue iv fluids. Stool WBC, culture,ova /parasites ordered. Fever. Blood and Urine cultures pending Cough. Chest X ray negative. He is being treated empirically for possible PCP. On Bactrim Chronic kidney disease stage 3. patient noncompliant. Nephrology following. Hypertensive urgency. BP now stable after adding Clonidine HIV. Recently diagnosed, has not gone for follow up to start meds. CD4 count ordered Oral thrush. Started on Fluconazole Seizure disorder. Continue keppra Hyponatremia Leukocytosis due to sepsis Medical non-compliance. I discussed compliance with doctor appointments and medications DVT prophylaxis. Heparin subcut Full code status History Interval history: Feels better, Fever today, Still coughing Nausea and vomiting abdominal pain Hospitalist Physical - Physical exam Narrative exam: Gen appearance: Not in acute distress HEENT: normocephalic, atraumatic,oral thrush Neck: supple, no JVD, Lungs: Clear to auscultation bilaterally, no crackles or wheezes Heart :S1 and S2 regular, no murmurs, rubs or gallop Abdomen: Soft, non tender, non distended, normal bowel sounds Extremities :no edema, no clubbing or cyanosis Neuro: AAO x 3, no focal neurological signs - Constitutional Vitals: Temp Pulse Resp BP Pulse Ox 100.9 F H 110 H 20 118/57 100 06/05/17 16:00 06/05/17 16:00 06/05/17 16:00 06/05/17 16:00 06/05/17 07:00 Results - Labs CBC & Chem 7: 06/05/17 04:29 06/05/17 04:29 Labs: Laboratory Last Values WBC 9.2 K/mm3 (4.5-11.0) 06/05/17 04:29 RBC 3.68 M/mm3 (3.65-5.03) 06/05/17 04:29 Hgb 9.2 gm/dl (11.8-15.2) L 06/05/17 04:29 Hct 27.9 % (35.5-45.6) L 06/05/17 04:29 MCV 76 fl (84-94) L 06/05/17 04:29 MCH 25 pg (28-32) L 06/05/17 04:29 MCHC 33 % (32-34) 06/05/17 04:29 RDW 16.0 % (13.2-15.2) H 06/05/17 04:29 Plt Count 281 K/mm3 (140-440) 06/05/17 04:29 Add Manual Diff Complete 06/04/17 06:30 Total Counted 100 06/04/17 06:30 Seg Neuts % (Manual) 83.0 % (40.0-70.0) H 06/04/17 06:30 Band Neutrophils % 4.0 % 06/04/17 06:30 Lymphocytes % (Manual) 3.0 % (13.4-35.0) L 06/04/17 06:30 Reactive Lymphs % (Man) 1.0 % 06/04/17 06:30 Monocytes % (Manual) 9.0 % (0.0-7.3) H 06/04/17 06:30 Eosinophils % (Manual) 0 % (0.0-4.3) 06/04/17 06:30 Basophils % (Manual) 0 % (0.0-1.8) 06/04/17 06:30 Metamyelocytes % 0 % 06/04/17 06:30 Myelocytes % 0 % 06/04/17 06:30 Promyelocytes % 0 % 06/04/17 06:30 Blast Cells % 0 % 06/04/17 06:30 Nucleated RBC % Not Reportable 06/04/17 06:30 Seg Neutrophils # Man 10.7 K/mm3 (1.8-7.7) H 06/04/17 06:30 Band Neutrophils # 0.5 K/mm3 06/04/17 06:30 Lymphocytes # (Manual) 0.4 K/mm3 (1.2-5.4) L 06/04/17 06:30 Abs React Lymphs (Man) 0.1 K/mm3 06/04/17 06:30 Monocytes # (Manual) 1.2 K/mm3 (0.0-0.8) H 06/04/17 06:30 Eosinophils # (Manual) 0.0 K/mm3 (0.0-0.4) 06/04/17 06:30 Basophils # (Manual) 0.0 K/mm3 (0.0-0.1) 06/04/17 06:30 Metamyelocytes # 0.0 K/mm3 06/04/17 06:30 Myelocytes # 0.0 K/mm3 06/04/17 06:30 Promyelocytes # 0.0 K/mm3 06/04/17 06:30 Blast Cells # 0.0 K/mm3 06/04/17 06:30 WBC Morphology Not Reportable 06/04/17 06:30 Hypersegmented Neuts Not Reportable 06/04/17 06:30 Hyposegmented Neuts Not Reportable 06/04/17 06:30 Hypogranular Neuts Not Reportable 06/04/17 06:30 Smudge Cells Not Reportable 06/04/17 06:30 Toxic Granulation Not Reportable 06/04/17 06:30 Toxic Vacuolation Not Reportable 06/04/17 06:30 Dohle Bodies Not Reportable 06/04/17 06:30 Pelger-Huet Anomaly Not Reportable 06/04/17 06:30 Dana Rods Not Reportable 06/04/17 06:30 Platelet Estimate Appears normal 06/04/17 06:30 Clumped Platelets Not Reportable 06/04/17 06:30 Plt Clumps, EDTA Not Reportable 06/04/17 06:30 Large Platelets Not Reportable 06/04/17 06:30 Giant Platelets Not Reportable 06/04/17 06:30 Platelet Satelliting Not Reportable 06/04/17 06:30 Plt Morphology Comment Not Reportable 06/04/17 06:30 RBC Morphology Not Reportable 06/04/17 06:30 Dimorphic RBCs Not Reportable 06/04/17 06:30 Polychromasia Few 06/04/17 06:30 Hypochromasia Not Reportable 06/04/17 06:30 Poikilocytosis 1+ 06/04/17 06:30 Anisocytosis 1+ 06/04/17 06:30 Microcytosis Not Reportable 06/04/17 06:30 Macrocytosis Not Reportable 06/04/17 06:30 Spherocytes Not Reportable 06/04/17 06:30 Pappenheimer Bodies Not Reportable 06/04/17 06:30 Sickle Cells Not Reportable 06/04/17 06:30 Target Cells Not Reportable 06/04/17 06:30 Tear Drop Cells Not Reportable 06/04/17 06:30 Ovalocytes Not Reportable 06/04/17 06:30 Helmet Cells Not Reportable 06/04/17 06:30 Tafoya-[place]pearl Bodies Not Reportable 06/04/17 06:30 [place] Rings Not Reportable 06/04/17 06:30 [place] Cells 1+ 06/04/17 06:30 Bite Cells Not Reportable 06/04/17 06:30 Crenated Cell Not Reportable 06/04/17 06:30 Elliptocytes 1+ 06/04/17 06:30 Acanthocytes (Spur) Not Reportable 06/04/17 06:30 Rouleaux Not Reportable 06/04/17 06:30 Hemoglobin C Crystals Not Reportable 06/04/17 06:30 Schistocytes Not Reportable 06/04/17 06:30 Malaria parasites Not Reportable 06/04/17 06:30 [place] Bodies Not Reportable 06/04/17 06:30 Hem Pathologist Commnt No 06/04/17 06:30 PT 13.9 Sec. (12.2-14.9) 06/02/17 15:19 INR 1.08 (0.87-1.13) 06/02/17 15:19 VBG pH 7.373 (7.320-7.420) 06/02/17 15:19 Sodium 133 mmol/L (137-145) L 06/05/17 04:29 Potassium 3.6 mmol/L (3.6-5.0) 06/05/17 04:29 Chloride 98.1 mmol/L (98-107) 06/05/17 04:29 Carbon Dioxide 16 mmol/L (22-30) L 06/05/17 04:29 Anion Gap 23 mmol/L 06/05/17 04:29 BUN 47 mg/dL (9-20) H 06/05/17 04:29 Creatinine 4.5 mg/dL (0.8-1.5) H 06/05/17 04:29 Estimated GFR 15 ml/min 06/05/17 04:29 BUN/Creatinine Ratio 10.44 % 06/05/17 04:29 Glucose 113 mg/dL (75-100) H 06/05/17 04:29 Lactic Acid 1.00 mmol/L (0.7-2.0) 06/02/17 23:09 Calcium 8.9 mg/dL (8.4-10.2) 06/05/17 04:29 Total Bilirubin 0.60 mg/dL (0.1-1.2) 06/02/17 15:19 AST 42 units/L (5-40) H 06/02/17 15:19 ALT 15 units/L (7-56) 06/02/17 15:19 Alkaline Phosphatase 58 units/L (35-129) 06/02/17 15:19 C-Reactive Protein 15.20 mg/dL (0.00-1.30) H 06/03/17 16:36 Total Protein 8.9 g/dL (6.3-8.2) H 06/02/17 15:19 Albumin 3.6 g/dL (3.9-5) L 06/02/17 15:19 Albumin/Globulin Ratio 0.7 % 06/02/17 15:19 Urine Color Yellow (Yellow) 06/02/17 15:22 Urine Turbidity Clear (Clear) 06/02/17 15:22 Urine pH 7.0 (5.0-7.0) 06/02/17 15:22 Ur Specific [place] 1.014 (1.003-1.030) 06/02/17 15:22 Urine Protein >500 mg/dL (Negative) 06/02/17 15:22 Urine Glucose (UA) Neg mg/dL (Negative) 06/02/17 15:22 Urine Ketones Neg mg/dL (Negative) 06/02/17 15:22 Urine Blood Neg (Negative) 06/02/17 15:22 Urine Nitrite Neg (Negative) 06/02/17 15:22 Urine Bilirubin Neg (Negative) 06/02/17 15:22 Urine Urobilinogen < 2.0 mg/dL (<2.0) 06/02/17 15:22 Ur Leukocyte Esterase Tr (Negative) 06/02/17 15:22 Urine WBC (Auto) 5.0 /HPF (0.0-6.0) 06/02/17 15:22 Urine RBC (Auto) 4.0 /HPF (0.0-6.0) 06/02/17 15:22 U Epithel Cells (Auto) 1.0 /HPF (0-13.0) 06/02/17 15:22 Urine Bacteria (Auto) 1+ /HPF (Negative) 06/02/17 15:22 Urine Mucus Few /HPF 06/02/17 15:22
--- NOTE | 2017-06-05 17:53 | Progress Note ---
Assessment and Plan IMPRESSION * Stage III chronic kidney disease secondary to hypertensive nephrosclerosis vs HIVAN --24h urine CrCl 35ml/min (April 2017) * Fever * Presumed PCP * HIV - dx April 2017 * Metabolic acidosis * Hypertension * Proteinuria, subnephrotic PLAN: * Renal function is stable. Continue current management * Fever work up and abx per ID - note noncontrast CT chest/abd pending * Note Bactrim; monitor K closely * Continue antiHTN medications * Dose medications for renal function * Avoid potential nephrotoxins. * AM labs Subjective Date of service: 06/05/17 Interval history: Patient reports congestion is better this AM but c/o some SOB. Febrile to 101 this am. Objective - Vital Signs Vital signs: Vital Signs - 12hr 06/05/17 06/05/17 06/05/17 07:00 09: 16:00 Temperature 101.0 F H 100.9 F H Pulse Rate 107 H 107 H 110 H Respiratory 20 20 Rate Blood Pressure 141/71 144/72 118/57 O2 Sat by Pulse 100 Oximetry - General Appearance General appearance: well-developed, well-nourished EENT: ATNC Respiratory: Present: Decreased Breath Sounds Cardiology: regular, S1S2 Gastrointestinal: normal Integumentary: no rash Neurologic: alert and oriented x3 Musculoskeletal: other (no edema) Psychiatric: mood/affect appropriate, cooperative - Lab 06/05/17 04:29 06/05/17 04:29 Most recent lab results Calcium 8.9 mg/dL (8.4-10.2) 06/05/17 04:29
[2017-06-05] MEDS ORDERED: NACL ONE (18:35)
--- NOTE | 2017-06-05 19:32 | Cat Scan Report ---
FINAL REPORT EXAM: CT CHEST WO CON HISTORY: persistent fever AIDS eval for pneumonia, abscess TECHNIQUE: Helical CT of the thorax was performed from the lung apices through the bases. No intravenous contrast was given. Images are reconstructed in the sagittal and coronal planes. PRIORS: None. FINDINGS: The heart is mildly to moderately enlarged. The thoracic aorta is non aneurysmal. There is no hilar or mediastinal adenopathy. There are diffuse bilateral interstitial and ground-glass infiltrate involving all lung hill. There is no evidence of pleural effusion. The visualized bones of the thorax appear normal. IMPRESSION: Findings are consistent with diffuse bilateral pneumonia. No pleural effusion.
--- NOTE | 2017-06-05 19:48 | Cat Scan Report ---
FINAL REPORT EXAM: CT ABDOMEN PELVIS WO CON HISTORY: persisent fever pt with AIDS eval for source TECHNIQUE: Helical CT scan through the abdomen and pelvis without contrast. Images are reconstructed in the sagittal and coronal planes. PRIORS: None. FINDINGS: Solid organ and bowel evaluation is limited without intravenous contrast. Bowel evaluation is limited without oral contrast. The lung bases are clear. There is a 5.9 x 5.4 x 6.8 cm cyst in the nikolas hepatis, separate from the gallbladder. A normal-appearing CBD is not seen. The gallbladder appears grossly normal. The pancreatic duct is nondilated. Liver, gallbladder, pancreas, spleen and adrenal glands appear normal. The kidneys appear grossly normal. The pelvic organs appear grossly normal. The stomach is empty and appears grossly within normal limits. There are no abnormally dilated loops of bowel or acute inflammatory changes. A normal-appearing appendix is identified. The abdominal aorta has a normal diameter. The bones and subcutaneous soft tissues are unremarkable for age. IMPRESSION: 1. 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 It may also represent a dilated CBD secondary to distal duct obstruction. Consider further evaluation with MRCP. 2. Otherwise, no acute findings in the abdomen/pelvis
[2017-06-06 06:13] LABS: Hematocrit 25.2 % (35.5-45.6); Hemoglobin 8.5 gm/dl (11.8-15.2); Mean Corpuscular HGB Conc 34 % (32-34); Mean Corpuscular Volume 76 fl (84-94); Platelet Count 250 K/mm3 (140-440); Red Blood Count 3.33 M/mm3 (3.65-5.03); Red Cell Distribution Width 16.1 % (13.2-15.2); White Blood Count 10.7 K/mm3 (4.5-11.0)
[2017-06-06 06:16] LABS: Mean Corpuscular Hemoglobin 25 pg (28-32)
[2017-06-06 06:25] LABS: BUN/Creatinine Ratio 10.45; Calcium 8.7 mg/dL (8.4-10.2); Chloride 97.4 mmol/L (98-107); Potassium 4.4 mmol/L (3.6-5.0)
[2017-06-06] MEDS: BACTRIM 300 MG in D5W 500 ML IV SCH ×3 (06:49→23:45)
[2017-06-06 06:52] LABS: Basophils % (Manual) 0 % (0.0-1.8); Blastocytes % (Manual) 0 %; Eosinophils % (Manual) 0 % (0.0-4.3)
[2017-06-06 06:53] LABS: Anisocytosis 1+; Diff Status Complete; Hypochromasia 1+; Platelet Estimate Consistent w Auto
[2017-06-06] MEDS: APRESOLINE PO SCH ×3 (06:54→23:00)
--- NOTE | 2017-06-06 08:15 | Progress Note ---
Assessment and Plan IMPRESSION * Stage III chronic kidney disease secondary to hypertensive nephrosclerosis vs HIVAN --24h urine CrCl 35ml/min (April 2017) * Fever * Presumed PCP * HIV - dx April 2017 * Metabolic acidosis * Hypertension * Proteinuria, subnephrotic * Hyponatremia PLAN: * Renal function is stable. Continue current management * Stop 1/2 NS due to declining Na; will start NS * Fever work up and abx per ID; noncontrast CT chest/abd reviewed * Note Bactrim; monitor K closely * Continue antiHTN medications * Dose medications for renal function * Avoid potential nephrotoxins. * AM labs Subjective Date of service: 06/06/17 Interval history: Febrile to 101.6 overnight. Objective - Exam Narrative Exam: Patient not examined - unavailable at time of visit. - Vital Signs Vital signs: Vital Signs - 12hr 06/05/17 06/05/17 06/06/17 21:53 21:59 00:00 Temperature 99.8 F H Pulse Rate 108 H 110 H Respiratory 18 Rate Blood Pressure 118/59 122/64 O2 Sat by Pulse 93 Oximetry - Lab 06/06/17 04:59 06/06/17 04:59 Most recent lab results Calcium 8.7 mg/dL (8.4-10.2) 06/06/17 04:59
--- NOTE | 2017-06-06 08:39 | Progress Note ---
<IRENE REILLY - Last Filed: 06/06/17 14:23> Assessment and Plan Assessment and plan: Sepsis due to Pneumonia Chest CT revealed diffuse bilateral pneumonia Blood cultures drawn. continue on antibiotics No growth to date Hepatic Cyst CT of the abdomen/pelvic revealed 6.8cm cyst in the [place] hepatic consistent with a choledochal cyst. Also dilated CBD secondary to distal duct obstruction. GI consult for possible MRCP Acute gastroenteritis Continue iv fluids. Stool WBC, culture,ova /parasites no growth Fever Patient is still running fever but its trending down toady 100.3 Blood and Urine cultures negative Following by Infectious Diseases Cough Most likely due to PNA Chest CT revealed diffuse bilateral pneumonia He is being treated empirically antibiotic . Chronic kidney disease stage 3 Patient noncompliant. Nephrology following. Hypertensive urgency Continue on clonidine, hydralazine, isosorbide and nifedipine Closely monitor blood pressure HIV/ GAMAL Recently diagnosed, has not gone for follow up to start meds. CD4 13 following by Infectious diseases Oral thrush. Continue on Fluconazole Seizure disorder Continue keppra Hyponatremia Most like due to dilute to volume CKD Leukocytosis Resolved Medical non-compliance Discussed the importance of compliance with doctor appointments and medications DVT prophylaxis Heparin History Interval history: Patient denies having any pain upon my exam. Hospitalist Physical - Constitutional Vitals: Temp Pulse Resp BP Pulse Ox 99.8 F H 110 H 18 122/64 93 06/06/17 00:00 06/06/17 00:00 06/06/17 00:00 06/06/17 00:00 06/05/17 21:53 General appearance: Present: no acute distress - EENT Eyes: Present: PERRL - Neck Neck: Present: supple - Respiratory Respiratory effort: normal Respiratory: bilateral: CTA - Cardiovascular Rhythm: regular Heart Sounds: Present: S1 & S2 - Extremities Extremities: no ischemia Peripheral Pulses: within normal limits - Abdominal General gastrointestinal: soft, non-tender - Integumentary Integumentary: Present: clear, warm, dry - Psychiatric Psychiatric: appropriate mood/affect - Neurologic Neurologic: CNII-XII intact - Allied Health Allied health notes reviewed: nursing Results - Labs CBC & Chem 7: 06/06/17 04:59 06/06/17 04:59 Labs: Laboratory Last Values WBC 10.7 K/mm3 (4.5-11.0) 06/06/17 04:59 RBC 3.33 M/mm3 (3.65-5.03) L 06/06/17 04:59 Hgb 8.5 gm/dl (11.8-15.2) L 06/06/17 04:59 Hct 25.2 % (35.5-45.6) L 06/06/17 04:59 MCV 76 fl (84-94) L 06/06/17 04:59 MCH 25 pg (28-32) L 06/06/17 04:59 MCHC 34 % (32-34) 06/06/17 04:59 RDW 16.1 % (13.2-15.2) H 06/06/17 04:59 Plt Count 250 K/mm3 (140-440) 06/06/17 04:59 Add Manual Diff Complete 06/06/17 04:59 Total Counted 100 06/06/17 04:59 Seg Neuts % (Manual) 81.0 % (40.0-70.0) H 06/06/17 04:59 Band Neutrophils % 4.0 % 06/06/17 04:59 Lymphocytes % (Manual) 9.0 % (13.4-35.0) L 06/06/17 04:59 Reactive Lymphs % (Man) 0 % 06/06/17 04:59 Monocytes % (Manual) 6.0 % (0.0-7.3) 06/06/17 04:59 Eosinophils % (Manual) 0 % (0.0-4.3) 06/06/17 04:59 Basophils % (Manual) 0 % (0.0-1.8) 06/06/17 04:59 Metamyelocytes % 0 % 06/06/17 04:59 Myelocytes % 0 % 06/06/17 04:59 Promyelocytes % 0 % 06/06/17 04:59 Blast Cells % 0 % 06/06/17 04:59 Nucleated RBC % 3.0 % (0.0-0.9) H 06/06/17 04:59 Seg Neutrophils # Man 8.7 K/mm3 (1.8-7.7) H 06/06/17 04:59 Band Neutrophils # 0.4 K/mm3 06/06/17 04:59 Abs Lymphs (Manual) 652 cells/uL (850-3900) L 06/03/17 16:36 Lymphocytes # (Manual) 1.0 K/mm3 (1.2-5.4) L 06/06/17 04:59 Abs React Lymphs (Man) 0.0 K/mm3 06/06/17 04:59 Monocytes # (Manual) 0.6 K/mm3 (0.0-0.8) 06/06/17 04:59 Eosinophils # (Manual) 0.0 K/mm3 (0.0-0.4) 06/06/17 04:59 Basophils # (Manual) 0.0 K/mm3 (0.0-0.1) 06/06/17 04:59 Metamyelocytes # 0.0 K/mm3 06/06/17 04:59 Myelocytes # 0.0 K/mm3 06/06/17 04:59 Promyelocytes # 0.0 K/mm3 06/06/17 04:59 Blast Cells # 0.0 K/mm3 06/06/17 04:59 WBC Morphology Not Reportable 06/06/17 04:59 Hypersegmented Neuts Not Reportable 06/06/17 04:59 Hyposegmented Neuts Not Reportable 06/06/17 04:59 Hypogranular Neuts Not Reportable 06/06/17 04:59 Smudge Cells Not Reportable 06/06/17 04:59 Toxic Granulation Not Reportable 06/06/17 04:59 Toxic Vacuolation Not Reportable 06/06/17 04:59 Dohle Bodies Not Reportable 06/06/17 04:59 Pelger-Huet Anomaly Not Reportable 06/06/17 04:59 Dana Rods Not Reportable 06/06/17 04:59 Platelet Estimate Consistent w auto 06/06/17 04:59 Clumped Platelets Not Reportable 06/06/17 04:59 Plt Clumps, EDTA Not Reportable 06/06/17 04:59 Large Platelets Not Reportable 06/06/17 04:59 Giant Platelets Not Reportable 06/06/17 04:59 Platelet Satelliting Not Reportable 06/06/17 04:59 Plt Morphology Comment Not Reportable 06/06/17 04:59 RBC Morphology Not Reportable 06/06/17 04:59 Dimorphic RBCs Not Reportable 06/06/17 04:59 Polychromasia Not Reportable 06/06/17 04:59 Hypochromasia 1+ 06/06/17 04:59 Poikilocytosis Not Reportable 06/06/17 04:59 Anisocytosis 1+ 06/06/17 04:59 Microcytosis Not Reportable 06/06/17 04:59 Macrocytosis Not Reportable 06/06/17 04:59 Spherocytes Not Reportable 06/06/17 04:59 Pappenheimer Bodies Not Reportable 06/06/17 04:59 Sickle Cells Not Reportable 06/06/17 04:59 Target Cells Not Reportable 06/06/17 04:59 Tear Drop Cells Not Reportable 06/06/17 04:59 Ovalocytes Not Reportable 06/06/17 04:59 Helmet Cells Not Reportable 06/06/17 04:59 Tafoya-Anza Bodies Not Reportable 06/06/17 04:59 [place] Rings Not Reportable 06/06/17 04:59 [place] Cells Not Reportable 06/06/17 04:59 Bite Cells Not Reportable 06/06/17 04:59 Crenated Cell Not Reportable 06/06/17 04:59 Elliptocytes Not Reportable 06/06/17 04:59 Acanthocytes (Spur) Not Reportable 06/06/17 04:59 Rouleaux Not Reportable 06/06/17 04:59 Hemoglobin C Crystals Not Reportable 06/06/17 04:59 Schistocytes Not Reportable 06/06/17 04:59 Malaria parasites Not Reportable 06/06/17 04:59 [place] Bodies Not Reportable 06/06/17 04:59 Hem Pathologist Commnt No 06/06/17 04:59 PT 13.9 Sec. (12.2-14.9) 06/02/17 15:19 INR 1.08 (0.87-1.13) 06/02/17 15:19 VBG pH 7.373 (7.320-7.420) 06/02/17 15:19 Sodium 132 mmol/L (137-145) L 06/06/17 04:59 Potassium 4.4 mmol/L (3.6-5.0) D 06/06/17 04:59 Chloride 97.4 mmol/L (98-107) L 06/06/17 04:59 Carbon Dioxide 15 mmol/L (22-30) L 06/06/17 04:59 Anion Gap 24 mmol/L 06/06/17 04:59 BUN 46 mg/dL (9-20) H 06/06/17 04:59 Creatinine 4.4 mg/dL (0.8-1.5) H 06/06/17 04:59 Estimated GFR 15 ml/min 06/06/17 04:59 BUN/Creatinine Ratio 10.45 % 06/06/17 04:59 Glucose 91 mg/dL (75-100) 06/06/17 04:59 Lactic Acid 1.00 mmol/L (0.7-2.0) 06/02/17 23:09 Calcium 8.7 mg/dL (8.4-10.2) 06/06/17 04:59 Total Bilirubin 0.60 mg/dL (0.1-1.2) 06/02/17 15:19 AST 42 units/L (5-40) H 06/02/17 15:19 ALT 15 units/L (7-56) 06/02/17 15:19 Alkaline Phosphatase 58 units/L (35-129) 06/02/17 15:19 C-Reactive Protein 15.20 mg/dL (0.00-1.30) H 06/03/17 16:36 Total Protein 8.9 g/dL (6.3-8.2) H 06/02/17 15:19 Albumin 3.6 g/dL (3.9-5) L 06/02/17 15:19 Albumin/Globulin Ratio 0.7 % 06/02/17 15:19 Urine Color Yellow (Yellow) 06/02/17 15:22 Urine Turbidity Clear (Clear) 06/02/17 15:22 Urine pH 7.0 (5.0-7.0) 06/02/17 15:22 Ur Specific [place] 1.014 (1.003-1.030) 06/02/17 15:22 Urine Protein >500 mg/dL (Negative) 06/02/17 15:22 Urine Glucose (UA) Neg mg/dL (Negative) 06/02/17 15:22 Urine Ketones Neg mg/dL (Negative) 06/02/17 15:22 Urine Blood Neg (Negative) 06/02/17 15:22 Urine Nitrite Neg (Negative) 06/02/17 15:22 Urine Bilirubin Neg (Negative) 06/02/17 15:22 Urine Urobilinogen < 2.0 mg/dL (<2.0) 06/02/17 15:22 Ur Leukocyte Esterase Tr (Negative) 06/02/17 15:22 Urine WBC (Auto) 5.0 /HPF (0.0-6.0) 06/02/17 15:22 Urine RBC (Auto) 4.0 /HPF (0.0-6.0) 06/02/17 15:22 U Epithel Cells (Auto) 1.0 /HPF (0-13.0) 06/02/17 15:22 Urine Bacteria (Auto) 1+ /HPF (Negative) 06/02/17 15:22 Urine Mucus Few /HPF 06/02/17 15:22 Lymph Enumerat CD4/CD8 0.03 (0.86-5.00) L 06/03/17 16:36 % CD3 Cells 68 % (57-85) 06/03/17 16:36 Absolute CD3 Count 445 cells/uL (840-3060) L 06/03/17 16:36 % CD4 Cells 2 % (30-61) L 06/03/17 16:36 Absolute CD4 Count 13 cells/uL (490-1740) L 06/03/17 16:36 % CD8 Cells 62 % (12-42) H 06/03/17 16:36 Absolute CD8 Count 427 cells/uL (180-1170) 06/03/17 16:36 % CD19 Cells 16 % (6-29) 06/03/17 16:36 Absolute CD19 Count 100 cells/uL (110-660) L 06/03/17 16:36 <AMELIE GRESHAM - Last Filed: 06/06/17 16:56> Assessment and Plan Assessment and plan: I saw and evaluated the patient. I agree with the findings and the plan of care as documented in the Nurse Practitioner's~note, with the following corrections and additions. Patient seen and evaluated along with the nurse practitioner, physical examination performed, treatment plan formulated ID evaluation and recommendations noted and appreciated I extensively discussed with ID and the treatment plan CT abdomen reviewed GI consulted for further evaluation of hepatic cyst with CBD dilation For possible MRCP. Medical records reviewed Plan of care discussed with the patient, his nurse and case management Hospitalist Physical - Constitutional Vitals: Temp Pulse Resp BP Pulse Ox 100.3 F H 116 H 20 103/58 94 06/06/17 07:00 06/06/17 11:53 06/06/17 07:00 06/06/17 11:53 06/06/17 08:45 Results - Labs CBC & Chem 7: 06/06/17 04:59 06/06/17 04:59 Labs: Laboratory Last Values WBC 10.7 K/mm3 (4.5-11.0) 06/06/17 04:59 RBC 3.33 M/mm3 (3.65-5.03) L 06/06/17 04:59 Hgb 8.5 gm/dl (11.8-15.2) L 06/06/17 04:59 Hct 25.2 % (35.5-45.6) L 06/06/17 04:59 MCV 76 fl (84-94) L 06/06/17 04:59 MCH 25 pg (28-32) L 06/06/17 04:59 MCHC 34 % (32-34) 06/06/17 04:59 RDW 16.1 % (13.2-15.2) H 06/06/17 04:59 Plt Count 250 K/mm3 (140-440) 06/06/17 04:59 Add Manual Diff Complete 06/06/17 04:59 Total Counted 100 06/06/17 04:59 Seg Neuts % (Manual) 81.0 % (40.0-70.0) H 06/06/17 04:59 Band Neutrophils % 4.0 % 06/06/17 04:59 Lymphocytes % (Manual) 9.0 % (13.4-35.0) L 06/06/17 04:59 Reactive Lymphs % (Man) 0 % 06/06/17 04:59 Monocytes % (Manual) 6.0 % (0.0-7.3) 06/06/17 04:59 Eosinophils % (Manual) 0 % (0.0-4.3) 06/06/17 04:59 Basophils % (Manual) 0 % (0.0-1.8) 06/06/17 04:59 Metamyelocytes % 0 % 06/06/17 04:59 Myelocytes % 0 % 06/06/17 04:59 Promyelocytes % 0 % 06/06/17 04:59 Blast Cells % 0 % 06/06/17 04:59 Nucleated RBC % 3.0 % (0.0-0.9) H 06/06/17 04:59 Seg Neutrophils # Man 8.7 K/mm3 (1.8-7.7) H 06/06/17 04:59 Band Neutrophils # 0.4 K/mm3 06/06/17 04:59 Abs Lymphs (Manual) 652 cells/uL (850-3900) L 06/03/17 16:36 Lymphocytes # (Manual) 1.0 K/mm3 (1.2-5.4) L 06/06/17 04:59 Abs React Lymphs (Man) 0.0 K/mm3 06/06/17 04:59 Monocytes # (Manual) 0.6 K/mm3 (0.0-0.8) 06/06/17 04:59 Eosinophils # (Manual) 0.0 K/mm3 (0.0-0.4) 06/06/17 04:59 Basophils # (Manual) 0.0 K/mm3 (0.0-0.1) 06/06/17 04:59 Metamyelocytes # 0.0 K/mm3 06/06/17 04:59 Myelocytes # 0.0 K/mm3 06/06/17 04:59 Promyelocytes # 0.0 K/mm3 06/06/17 04:59 Blast Cells # 0.0 K/mm3 06/06/17 04:59 WBC Morphology Not Reportable 06/06/17 04:59 Hypersegmented Neuts Not Reportable 06/06/17 04:59 Hyposegmented Neuts Not Reportable 06/06/17 04:59 Hypogranular Neuts Not Reportable 06/06/17 04:59 Smudge Cells Not Reportable 06/06/17 04:59 Toxic Granulation Not Reportable 06/06/17 04:59 Toxic Vacuolation Not Reportable 06/06/17 04:59 Dohle Bodies Not Reportable 06/06/17 04:59 Pelger-Huet Anomaly Not Reportable 06/06/17 04:59 Dana Rods Not Reportable 06/06/17 04:59 Platelet Estimate Consistent w auto 06/06/17 04:59 Clumped Platelets Not Reportable 06/06/17 04:59 Plt Clumps, EDTA Not Reportable 06/06/17 04:59 Large Platelets Not Reportable 06/06/17 04:59 Giant Platelets Not Reportable 06/06/17 04:59 Platelet Satelliting Not Reportable 06/06/17 04:59 Plt Morphology Comment Not Reportable 06/06/17 04:59 RBC Morphology Not Reportable 06/06/17 04:59 Dimorphic RBCs Not Reportable 06/06/17 04:59 Polychromasia Not Reportable 06/06/17 04:59 Hypochromasia 1+ 06/06/17 04:59 Poikilocytosis Not Reportable 06/06/17 04:59 Anisocytosis 1+ 06/06/17 04:59 Microcytosis Not Reportable 06/06/17 04:59 Macrocytosis Not Reportable 06/06/17 04:59 Spherocytes Not Reportable 06/06/17 04:59 Pappenheimer Bodies Not Reportable 06/06/17 04:59 Sickle Cells Not Reportable 06/06/17 04:59 Target Cells Not Reportable 06/06/17 04:59 Tear Drop Cells Not Reportable 06/06/17 04:59 Ovalocytes Not Reportable 06/06/17 04:59 Helmet Cells Not Reportable 06/06/17 04:59 Tafoya-Anza Bodies Not Reportable 06/06/17 04:59 [place] Rings Not Reportable 06/06/17 04:59 [place] Cells Not Reportable 06/06/17 04:59 Bite Cells Not Reportable 06/06/17 04:59 Crenated Cell Not Reportable 06/06/17 04:59 Elliptocytes Not Reportable 06/06/17 04:59 Acanthocytes (Spur) Not Reportable 06/06/17 04:59 Rouleaux Not Reportable 06/06/17 04:59 Hemoglobin C Crystals Not Reportable 06/06/17 04:59 Schistocytes Not Reportable 06/06/17 04:59 Malaria parasites Not Reportable 06/06/17 04:59 [place] Bodies Not Reportable 06/06/17 04:59 Hem Pathologist Commnt No 06/06/17 04:59 PT 13.9 Sec. (12.2-14.9) 06/02/17 15:19 INR 1.08 (0.87-1.13) 06/02/17 15:19 VBG pH 7.373 (7.320-7.420) 06/02/17 15:19 Sodium 132 mmol/L (137-145) L 06/06/17 04:59 Potassium 4.4 mmol/L (3.6-5.0) D 06/06/17 04:59 Chloride 97.4 mmol/L (98-107) L 06/06/17 04:59 Carbon Dioxide 15 mmol/L (22-30) L 06/06/17 04:59 Anion Gap 24 mmol/L 06/06/17 04:59 BUN 46 mg/dL (9-20) H 06/06/17 04:59 Creatinine 4.4 mg/dL (0.8-1.5) H 06/06/17 04:59 Estimated GFR 15 ml/min 06/06/17 04:59 BUN/Creatinine Ratio 10.45 % 06/06/17 04:59 Glucose 91 mg/dL (75-100) 06/06/17 04:59 Lactic Acid 1.00 mmol/L (0.7-2.0) 06/02/17 23:09 Calcium 8.7 mg/dL (8.4-10.2) 06/06/17 04:59 Total Bilirubin 0.60 mg/dL (0.1-1.2) 06/02/17 15:19 AST 42 units/L (5-40) H 06/02/17 15:19 ALT 15 units/L (7-56) 06/02/17 15:19 Alkaline Phosphatase 58 units/L (35-129) 06/02/17 15:19 C-Reactive Protein 15.20 mg/dL (0.00-1.30) H 06/03/17 16:36 Total Protein 8.9 g/dL (6.3-8.2) H 06/02/17 15:19 Albumin 3.6 g/dL (3.9-5) L 06/02/17 15:19 Albumin/Globulin Ratio 0.7 % 06/02/17 15:19 Urine Color Yellow (Yellow) 06/02/17 15:22 Urine Turbidity Clear (Clear) 06/02/17 15:22 Urine pH 7.0 (5.0-7.0) 06/02/17 15:22 Ur Specific [place] 1.014 (1.003-1.030) 06/02/17 15:22 Urine Protein >500 mg/dL (Negative) 06/02/17 15:22 Urine Glucose (UA) Neg mg/dL (Negative) 06/02/17 15:22 Urine Ketones Neg mg/dL (Negative) 06/02/17 15:22 Urine Blood Neg (Negative) 06/02/17 15:22 Urine Nitrite Neg (Negative) 06/02/17 15:22 Urine Bilirubin Neg (Negative) 06/02/17 15:22 Urine Urobilinogen < 2.0 mg/dL (<2.0) 06/02/17 15:22 Ur Leukocyte Esterase Tr (Negative) 06/02/17 15:22 Urine WBC (Auto) 5.0 /HPF (0.0-6.0) 06/02/17 15:22 Urine RBC (Auto) 4.0 /HPF (0.0-6.0) 06/02/17 15:22 U Epithel Cells (Auto) 1.0 /HPF (0-13.0) 06/02/17 15:22 Urine Bacteria (Auto) 1+ /HPF (Negative) 06/02/17 15:22 Urine Mucus Few /HPF 06/02/17 15:22 Lymph Enumerat CD4/CD8 0.03 (0.86-5.00) L 06/03/17 16:36 % CD3 Cells 68 % (57-85) 06/03/17 16:36 Absolute CD3 Count 445 cells/uL (840-3060) L 06/03/17 16:36 % CD4 Cells 2 % (30-61) L 06/03/17 16:36 Absolute CD4 Count 13 cells/uL (490-1740) L 06/03/17 16:36 % CD8 Cells 62 % (12-42) H 06/03/17 16:36 Absolute CD8 Count 427 cells/uL (180-1170) 06/03/17 16:36 % CD19 Cells 16 % (6-29) 06/03/17 16:36 Absolute CD19 Count 100 cells/uL (110-660) L 06/03/17 16:36
[2017-06-06] MEDS ORDERED: NACL 0.9% 1000 ML 1,000 ML IV SCH (09:00)
[2017-06-06] MEDS: CATAPRES PO SCH ×2 (11:53→23:00)
[2017-06-06] MEDS: HEPARIN SUB-Q SCH ×2 (11:54→23:00)
[2017-06-06] MEDS: IMDUR PO SCH (11:55)
[2017-06-06] MEDS: KEPPRA PO SCH ×2 (11:55→23:00)
[2017-06-06] MEDS: PROCARDIA XL PO SCH (11:55)
--- NOTE | 2017-06-06 12:08 | Progress Note ---
Assessment and Plan Assessment: 1) Sepsis: still fever. Etiology ? biliary infection ? Pneumonia -CRP=16 -Serum crypto ag neg 2) Abdominal pain, N/V/D ? from AIDS or opportunistic infection - still abdominal pain -CT abdomen + 6.8 cm cyst in the port c/w choledocal cyst versus dilated CBD 3) Cough: CXR neg; ? PJP pneumonia - better -CT chest + bilateral infiltrates 4) AIDS: VL found at 107,[id number] on 04/12/17, CD4=13. Never treated. He was not taking any prophylaxis. 5) [place] ? hypertensive nephropathy versus AIDS-related 6) Oral candidiasis - better 7) HTN - uncontrolled Plan: -consult GI med in view of CT results -continue to IV bactrim - renally dosed - for presumed PCP -add zosyn IV empirically to cover biliary obstruction -f/u procalcitonin -f/u AFB blood cultures -check CMV PCR -continue Fluconazole -continue azithromycin 1600 mg q week for MAC prophylaxis -discussed with IMS Thank you Dr Barnes for your consultation, will follow up with you. Cydney Ash MD Infectious Diseases Specialist [facility] [id number] [phone] Subjective Date of service: 06/06/17 Interval history: Feels sick with nausea and vomiting, still fever. Current Antimicrobials: 06/03 fluconazole 06/04 bactrim DS Previous Antimicrobials: Microbiology: Blood cultures: 06/02 neg Urine cultures: 06/02 10-100K mixed sp Respiratory cultures: Wound cultures: Stool cultures: Other: Cryptococcal serum antigen neg Cryptosporidiosis neg C diff neg Objective - Exam Narrative Exam: General appearance: Alert in NAD, conversant Eyes: anicteric sclerae, moist conjunctivae; no lid-lag; PERRLA HENT: Atraumatic; +oral thrush Neck: Trachea midline; supple, no thyromegaly or lymphadenopathy Lungs: harsha rhonchi CV: tachy Abdomen: TTP diffusely Extremities: No peripheral edema or extremity lymphadenopathy Skin: Normal temperature, turgor and texture; no rash, ulcers or subcutaneous nodules Psych: Appropriate affect, alert and oriented to person, place and time. Neuro: alert and oriented x 3. Moving all extermities Lines: No CVL / PICC - Constitutional Vitals: Vital Signs Temp Pulse Resp BP Pulse Ox 100.3 F H 116 H 20 103/58 94 06/06/17 07:00 06/06/17 11:53 06/06/17 07:00 06/06/17 11:53 06/06/17 08:45 Temperature -Last 24 Hours Temperature 100.3 F Temperature 99.8 F Temperature 101.6 F Temperature 100.9 F - Labs CBC & Chem 7: 06/06/17 04:59 06/06/17 04:59 Labs: Abnormal lab results 06/03/17 06/06/17 06/06/17 Range/Units 16:36 04:59 04:59 RBC 3.33 L (3.65-5.03) M/mm3 Hgb 8.5 L (11.8-15.2) gm/dl Hct 25.2 L (35.5-45.6) % MCV 76 L (84-94) fl MCH 25 L (28-32) pg RDW 16.1 H (13.2-15.2) % Seg Neuts % (Manual) 81.0 H (40.0-70.0) % Lymphocytes % (Manual) 9.0 L (13.4-35.0) % Nucleated RBC % 3.0 H (0.0-0.9) % Seg Neutrophils # Man 8.7 H (1.8-7.7) K/mm3 Abs Lymphs (Manual) 652 L (850-3900) cells/uL Lymphocytes # (Manual) 1.0 L (1.2-5.4) K/mm3 Sodium 132 L (137-145) mmol/L Chloride 97.4 L (98-107) mmol/L Carbon Dioxide 15 L (22-30) mmol/L BUN 46 H (9-20) mg/dL Creatinine 4.4 H (0.8-1.5) mg/dL Lymph Enumerat CD4/CD8 0.03 L (0.86-5.00) Absolute CD3 Count 445 L (840-3060) cells/uL % CD4 Cells 2 L (30-61) % Absolute CD4 Count 13 L (490-1740) cells/uL % CD8 Cells 62 H (12-42) % Absolute CD19 Count 100 L (110-660) cells/uL
--- NOTE | 2017-06-06 14:33 | Gastroenterology Consultation ---
<BILLAMIE ANN - Last Filed: 06/06/17 14:33> History of Present Illness - Reason for Consult Consult date: 06/06/[address] Requesting physician: RONEY DELCID - History of Present Illness Mr Cao is a 36-y/old man with history of hypertension, chronic kidney disease , seizure, HIV complaints of nausea vomiting and diarrhea 5 days. Also complaining of fever, cough productive of yellow phlegm. He has been off of his HIV medications, he was recently diagnosed this year and has not been seen in the HIV clinic yet. He was treated for Sepsis with diagnosis of PNA. CT of A/P revealed a possible CBD polyp with increase CBD. His diarrhea has since resolved but he continues to have RUQ/ epigastric pain. Past History Past Medical History: HIV/AIDS, hypertension, renal failure, other (HIV diagnosed in April 2017) Past Surgical History: No surgical history Social history: single, smoking, alcohol abuse, other (sexually active 3 partners female and males no protection. ). denies: IV drug use Medications and Allergies Allergies Allergy/AdvReac Type Severity Reaction Status Date / Time No Known Allergies Allergy Unverified 04/10/17 15:20 Home Medications Medication Instructions Recorded Confirmed Last Taken Type Acetaminophen [Acetaminophen TAB] 325 mg PO Q6H PRN #30 tablet 04/14/17 Unknown Rx ISOSORBIDE MONOnitrate [Imdur ER] 30 mg PO QDAY #30 tablet 04/14/17 06/03/17 Unknown Rx Spironolactone [Aldactone] 25 mg PO BID #60 tablet 04/14/17 06/03/17 Unknown Rx levETIRAcetam [Keppra TAB] 500 mg PO BID #60 tablet 04/14/17 06/03/17 Unknown Rx NIFEdipine XL [Procardia Xl] 90 mg PO QDAY #30 tablet 04/15/17 06/03/17 Unknown Rx hydrALAZINE [Apresoline TAB] 100 mg PO Q8HR #1 mo 04/15/17 06/03/17 Unknown Rx Active Meds: Active Medications Acetaminophen (Tylenol) 650 mg PO Q4H PRN PRN Reason: Pain MILD(1-3)/Fever >100.5/DYE Albuterol (Proventil) 2.5 mg IH Q3HRT PRN PRN Reason: Shortness Of Breath Azithromycin (Zithromax) 1,200 mg PO QWEEK [facility] Last Admin: 06/05/17 10:00 Dose: 1,200 mg Bisacodyl (Dulcolax) 10 mg SC QDAY PRN PRN Reason: Constipation unrelieved by MOM Clonidine HCl (Catapres) 0.1 mg PO Q12HR [facility] Last Admin: 06/06/17 11:53 Dose: Not Given Heparin Sodium (Porcine) (Heparin) 5,000 unit SUB-Q Q12HR [facility] Last Admin: 06/06/17 11:54 Dose: 5,000 unit Hydralazine HCl (Apresoline) 100 mg PO Q8HR [facility] Last Admin: 06/06/17 06:54 Dose: 100 mg Fluconazole (Diflucan/Ns 100 Mg/50 Ml) 100 mg in 50 mls @ 50 mls/hr IV Q24HR [facility] Last Admin: 06/05/17 09:16 Dose: 50 mls/hr Trimethoprim/Sulfamethoxazole (300 mg/ Dextrose) 518.75 mls @ 350 mls/hr IV Q8H [facility] Last Admin: 06/06/17 06:49 Dose: 300 mls/hr Sodium Chloride (Nacl 0.9% 1000 Ml) 1,000 mls @ 75 mls/hr IV DIRECT [facility] Isosorbide Mononitrate (Imdur) 30 mg PO QDAY [facility] Last Admin: 06/06/17 11:55 Dose: Not Given Levetiracetam (Keppra) 500 mg PO BID [facility] Last Admin: 06/06/17 11:55 Dose: 500 mg Magnesium Hydroxide (Milk Of Magnesia) 30 ml PO Q4H PRN PRN Reason: Constipation Nifedipine (Procardia Xl) 90 mg PO QDAY [facility] Last Admin: 06/06/17 11:55 Dose: Not Given Ondansetron HCl (Zofran) 4 mg IV Q8H PRN PRN Reason: N/V unrelieved by Reglan Review of Systems - Review of Systems All systems: negative Constitutional: fatigue, weakness Cardiovascular: shortness of breath Respiratory: cough Gastrointestinal: abdominal pain Exam - Constitutional Vital Signs: Temp Pulse Resp BP Pulse Ox 100.3 F H 116 H 20 103/58 94 06/06/17 07:00 06/06/17 11:53 06/06/17 07:00 06/06/17 11:53 06/06/17 08:45 General appearance: no acute distress - EENT Eyes: EOM intact ENT: hearing intact - Neck Neck: supple - Respiratory Respiratory: bilateral: diminished - Cardiovascular Rhythm: regular Heart Sounds: Present: S1 & S2 Extremities: pulses intact - Gastrointestinal General gastrointestinal: Present: soft, tender (TTP RUQ/ epigastric area) - Integumentary Integumentary: Present: warm, dry - Neurologic Neurological: alert and oriented x3 - Labs CBC & Chem 7: 06/06/17 04:59 06/06/17 04:59 Lab Results: Laboratory Results - last 24 hr 06/03/17 06/06/17 06/06/17 16:36 04:59 04:59 WBC 10.7 RBC 3.33 L Hgb 8.5 L Hct 25.2 L MCV 76 L MCH 25 L MCHC 34 RDW 16.1 H Plt Count 250 Add Manual Diff Complete Total Counted 100 Seg Neuts % (Manual) 81.0 H Band Neutrophils % 4.0 Lymphocytes % (Manual) 9.0 L Reactive Lymphs % (Man) 0 Monocytes % (Manual) 6.0 Eosinophils % (Manual) 0 Basophils % (Manual) 0 Metamyelocytes % 0 Myelocytes % 0 Promyelocytes % 0 Blast Cells % 0 Nucleated RBC % 3.0 H Seg Neutrophils # Man 8.7 H Band Neutrophils # 0.4 Abs Lymphs (Manual) 652 L Lymphocytes # (Manual) 1.0 L Abs React Lymphs (Man) 0.0 Monocytes # (Manual) 0.6 Eosinophils # (Manual) 0.0 Basophils # (Manual) 0.0 Metamyelocytes # 0.0 Myelocytes # 0.0 Promyelocytes # 0.0 Blast Cells # 0.0 WBC Morphology Not Reportable Hypersegmented Neuts Not Reportable Hyposegmented Neuts Not Reportable Hypogranular Neuts Not Reportable Smudge Cells Not Reportable Toxic Granulation Not Reportable Toxic Vacuolation Not Reportable Dohle Bodies Not Reportable Pelger-Huet Anomaly Not Reportable Dana Rods Not Reportable Platelet Estimate Consistent w auto Clumped Platelets Not Reportable Plt Clumps, EDTA Not Reportable Large Platelets Not Reportable Giant Platelets Not Reportable Platelet Satelliting Not Reportable Plt Morphology Comment Not Reportable RBC Morphology Not Reportable Dimorphic RBCs Not Reportable Polychromasia Not Reportable Hypochromasia 1+ Poikilocytosis Not Reportable Anisocytosis 1+ Microcytosis Not Reportable Macrocytosis Not Reportable Spherocytes Not Reportable Pappenheimer Bodies Not Reportable Sickle Cells Not Reportable Target Cells Not Reportable Tear Drop Cells Not Reportable Ovalocytes Not Reportable Helmet Cells Not Reportable [place] Bodies Not Reportable [place] Rings Not Reportable Rhianna Cells Not Reportable Bite Cells Not Reportable Crenated Cell Not Reportable Elliptocytes Not Reportable Acanthocytes (Spur) Not Reportable Rouleaux Not Reportable Hemoglobin C Crystals Not Reportable Schistocytes Not Reportable Malaria parasites Not Reportable [place] Bodies Not Reportable Hem Pathologist Commnt No Sodium 132 L Potassium 4.4 D Chloride 97.4 L Carbon Dioxide 15 L Anion Gap 24 BUN 46 H Creatinine 4.4 H Estimated GFR 15 BUN/Creatinine Ratio 10.45 Glucose 91 Calcium 8.7 Lymph Enumerat CD4/CD8 0.03 L % CD3 Cells 68 Absolute CD3 Count 445 L % CD4 Cells 2 L Absolute CD4 Count 13 L % CD8 Cells 62 H Absolute CD8 Count 427 % CD19 Cells 16 Absolute CD19 Count 100 L Assessment and Plan 1. Abnormal CT -CBD cyst vs stone. MRCP ordered -Check LFTS -Patient reports pain in RUQ/ epigastric area -Further recommendations based on MRCP 2. PNA -per primary 3. HIV/AIDS -ID consulting <HOSEA [employer] - Last Filed: 06/06/17 19:11> Medications and Allergies Active Meds: Active Medications Acetaminophen (Tylenol) 650 mg PO Q4H PRN PRN Reason: Pain MILD(1-3)/Fever >100.5/DYE Albuterol (Proventil) 2.5 mg IH Q3HRT PRN PRN Reason: Shortness Of Breath Azithromycin (Zithromax) 1,200 mg PO QWEEK [facility] Last Admin: 06/05/17 10:00 Dose: 1,200 mg Bisacodyl (Dulcolax) 10 mg SC QDAY PRN PRN Reason: Constipation unrelieved by MOM Clonidine HCl (Catapres) 0.1 mg PO Q12HR [facility] Last Admin: 06/06/17 11:53 Dose: Not Given Heparin Sodium (Porcine) (Heparin) 5,000 unit SUB-Q Q12HR [facility] Last Admin: 06/06/17 11:54 Dose: 5,000 unit Hydralazine HCl (Apresoline) 100 mg PO Q8HR [facility] Last Admin: 06/06/17 14:01 Dose: Not Given Fluconazole (Diflucan/Ns 100 Mg/50 Ml) 100 mg in 50 mls @ 50 mls/hr IV Q24HR [facility] Last Admin: 06/05/17 09:16 Dose: 50 mls/hr Trimethoprim/Sulfamethoxazole (300 mg/ Dextrose) 518.75 mls @ 350 mls/hr IV Q8H [facility] Last Admin: 06/06/17 06:49 Dose: 300 mls/hr Sodium Chloride (Nacl 0.9% 1000 Ml) 1,000 mls @ 75 mls/hr IV DIRECT [facility] Piperacillin Sod/Tazobactam Sod (Zosyn/Ns 2.25 Gm/50ml) 2.25 gm in 50 mls @ 100 mls/hr IV Q8HR [facility] PRN Reason: Protocol Isosorbide Mononitrate (Imdur) 30 mg PO QDAY [facility] Last Admin: 06/06/17 11:55 Dose: Not Given Levetiracetam (Keppra) 500 mg PO BID [facility] Last Admin: 06/06/17 11:55 Dose: 500 mg Magnesium Hydroxide (Milk Of Magnesia) 30 ml PO Q4H PRN PRN Reason: Constipation Nifedipine (Procardia Xl) 90 mg PO QDAY [facility] Last Admin: 06/06/17 11:55 Dose: Not Given Ondansetron HCl (Zofran) 4 mg IV Q8H PRN PRN Reason: N/V unrelieved by Reglan Exam - Constitutional Vital Signs: Temp Pulse Resp BP Pulse Ox 98.7 F 113 H 20 123/67 94 06/06/17 16:00 06/06/17 16:00 06/06/17 16:00 06/06/17 16:00 06/06/17 08:45 - Labs CBC & Chem 7: 06/06/17 04:59 06/06/17 04:59 Lab Results: Laboratory Results - last 24 hr 06/03/17 06/06/17 06/06/17 16:36 04:59 04:59 WBC 10.7 RBC 3.33 L Hgb 8.5 L Hct 25.2 L MCV 76 L MCH 25 L MCHC 34 RDW 16.1 H Plt Count 250 Add Manual Diff Complete Total Counted 100 Seg Neuts % (Manual) 81.0 H Band Neutrophils % 4.0 Lymphocytes % (Manual) 9.0 L Reactive Lymphs % (Man) 0 Monocytes % (Manual) 6.0 Eosinophils % (Manual) 0 Basophils % (Manual) 0 Metamyelocytes % 0 Myelocytes % 0 Promyelocytes % 0 Blast Cells % 0 Nucleated RBC % 3.0 H Seg Neutrophils # Man 8.7 H Band Neutrophils # 0.4 Abs Lymphs (Manual) 652 L Lymphocytes # (Manual) 1.0 L Abs React Lymphs (Man) 0.0 Monocytes # (Manual) 0.6 Eosinophils # (Manual) 0.0 Basophils # (Manual) 0.0 Metamyelocytes # 0.0 Myelocytes # 0.0 Promyelocytes # 0.0 Blast Cells # 0.0 WBC Morphology Not Reportable Hypersegmented Neuts Not Reportable Hyposegmented Neuts Not Reportable Hypogranular Neuts Not Reportable Smudge Cells Not Reportable Toxic Granulation Not Reportable Toxic Vacuolation Not Reportable Dohle Bodies Not Reportable Pelger-Huet Anomaly Not Reportable Dana Rods Not Reportable Platelet Estimate Consistent w auto Clumped Platelets Not Reportable Plt Clumps, EDTA Not Reportable Large Platelets Not Reportable Giant Platelets Not Reportable Platelet Satelliting Not Reportable Plt Morphology Comment Not Reportable RBC Morphology Not Reportable Dimorphic RBCs Not Reportable Polychromasia Not Reportable Hypochromasia 1+ Poikilocytosis Not Reportable Anisocytosis 1+ Microcytosis Not Reportable Macrocytosis Not Reportable Spherocytes Not Reportable Pappenheimer Bodies Not Reportable Sickle Cells Not Reportable Target Cells Not Reportable Tear Drop Cells Not Reportable Ovalocytes Not Reportable Helmet Cells Not Reportable [place] Bodies Not Reportable Todd Rings Not Reportable [place] Cells Not Reportable Bite Cells Not Reportable Crenated Cell Not Reportable Elliptocytes Not Reportable Acanthocytes (Spur) Not Reportable Rouleaux Not Reportable Hemoglobin C Crystals Not Reportable Schistocytes Not Reportable Malaria parasites Not Reportable [place] Bodies Not Reportable Hem Pathologist Commnt No Sodium 132 L Potassium 4.4 D Chloride 97.4 L Carbon Dioxide 15 L Anion Gap 24 BUN 46 H Creatinine 4.4 H Estimated GFR 15 BUN/Creatinine Ratio 10.45 Glucose 91 Calcium 8.7 Lymph Enumerat CD4/CD8 0.03 L % CD3 Cells 68 Absolute CD3 Count 445 L % CD4 Cells 2 L Absolute CD4 Count 13 L % CD8 Cells 62 H Absolute CD8 Count 427 % CD19 Cells 16 Absolute CD19 Count 100 L Assessment and Plan Patient seen and examined. Agree with note by Xuan Antunez. CT findings reviewed. Will obtain MRCP for further evaluation of biliary findings on CT scan. Further recommendations following MRCP as management would be different for cyst vs stone related biliary dilatation.
[2017-06-06] MEDS: ZOSYN/NS 2.25 GM/50ML 2.25 GM/50 ML BAG IV SCH (22:00)
[2017-06-07 04:45] LABS: Hematocrit 26.1 % (35.5-45.6); Hemoglobin 8.6 gm/dl (11.8-15.2); Mean Corpuscular HGB Conc 33 % (32-34); Mean Corpuscular Hemoglobin 25 pg (28-32); Mean Corpuscular Volume 75 fl (84-94); Platelet Count 284 K/mm3 (140-440); Red Blood Count 3.49 M/mm3 (3.65-5.03); White Blood Count 11.3 K/mm3 (4.5-11.0)
[2017-06-07 04:58] LABS: Alanine Aminotransferase 12 units/L (7-56); Albumin 2.8 g/dL (3.9-5); Albumin/Globulin Ratio 0.5 %; Alkaline Phosphatase 58 units/L (35-129); Anion Gap 22 mmol/L; BUN/Creatinine Ratio 9.09; Blood Urea Nitrogen 40 mg/dL (9-20); Calcium 8.9 mg/dL (8.4-10.2); Carbon Dioxide 18 mmol/L (22-30); Glucose 91 mg/dL (75-100); Potassium 4.2 mmol/L (3.6-5.0); Sodium 131 mmol/L (137-145); Total Protein 8.1 g/dL (6.3-8.2)
[2017-06-07 04:59] LABS: Bilirubin,Direct < 0.2 mg/dL (0-0.2); Bilirubin,Indirect 0.1 mg/dL
[2017-06-07] MEDS: ZOSYN/NS 2.25 GM/50ML 2.25 GM/50 ML BAG IV SCH ×3 (05:19→21:35)
[2017-06-07 05:29] LABS: Basophils % (Manual) 0 % (0.0-1.8); Blastocytes % (Manual) 0 %; Eosinophils % (Manual) 0 % (0.0-4.3)
[2017-06-07 05:30] LABS: Anisocytosis 1+; Diff Status Complete; Hypochromasia 1+; Platelet Estimate Consistent w Auto; Schistocytes Rare
[2017-06-07] MEDS: APRESOLINE PO SCH ×2 (06:10→21:45)
--- NOTE | 2017-06-07 07:22 | Progress Note ---
<IRENE REILLY - Last Filed: 06/07/17 14:32> Assessment and Plan Assessment and plan: Sepsis due to Pneumonia Chest CT revealed diffuse bilateral pneumonia Blood cultures drawn. continue on antibiotics No growth to date Hepatic Cyst CT of the abdomen/pelvic revealed 6.8cm cyst in the nikolas hepatic consistent with a choledochal cyst. Also dilated CBD secondary to distal duct obstruction. Following by GI awaiting on findings of MRCP Acute gastroenteritis Continue iv fluids. Stool WBC, culture,ova /parasites no growth Fever Resolved Cough Most likely due to PNA Chest CT revealed diffuse bilateral pneumonia He is being treated empirically antibiotic . Chronic kidney disease stage 3 Patient noncompliant. Maned by Nephrology. Hypertensive urgency Continue on clonidine, hydralazine, isosorbide and nifedipine Closely monitor blood pressure HIV/ GAMAL Recently diagnosed, has not gone for follow up to start meds. CD4 13 following by Infectious diseases Oral thrush. Continue on Fluconazole Seizure disorder Continue keppra History Interval history: Patient Hospitalist Physical - Constitutional Vitals: Temp Pulse Resp BP Pulse Ox 99.2 F 112 H 20 121/66 98 06/07/17 00:00 06/07/17 00:00 06/07/17 00:00 06/07/17 00:00 06/07/17 00:00 General appearance: Present: no acute distress - EENT Eyes: Present: PERRL - Neck Neck: Present: supple - Respiratory Respiratory effort: normal Respiratory: bilateral: wheezing (mild) - Cardiovascular Heart rate: 112 (tachycardia) Rhythm: regular Heart Sounds: Present: S1 & S2 - Extremities Extremities: no ischemia Peripheral Pulses: within normal limits - Abdominal General gastrointestinal: soft, non-tender - Integumentary Integumentary: Present: clear, warm, dry - Psychiatric Psychiatric: appropriate mood/affect - Neurologic Neurologic: CNII-XII intact, moves all extremities - Allied Health Allied health notes reviewed: nursing Results - Labs CBC & Chem 7: 06/07/17 04:21 06/07/17 04:21 Labs: Laboratory Last Values WBC 11.3 K/mm3 (4.5-11.0) H 06/07/17 04:21 RBC 3.49 M/mm3 (3.65-5.03) L 06/07/17 04:21 Hgb 8.6 gm/dl (11.8-15.2) L 06/07/17 04:21 Hct 26.1 % (35.5-45.6) L 06/07/17 04:21 MCV 75 fl (84-94) L 06/07/17 04:21 MCH 25 pg (28-32) L 06/07/17 04:21 MCHC 33 % (32-34) 06/07/17 04:21 RDW 16.0 % (13.2-15.2) H 06/07/17 04:21 Plt Count 284 K/mm3 (140-440) 06/07/17 04:21 Add Manual Diff Complete 06/07/17 04:21 Total Counted 100 06/07/17 04:21 Seg Neuts % (Manual) 87.0 % (40.0-70.0) H 06/07/17 04:21 Band Neutrophils % 0 % 06/07/17 04:21 Lymphocytes % (Manual) 7.0 % (13.4-35.0) L 06/07/17 04:21 Reactive Lymphs % (Man) 0 % 06/07/17 04:21 Monocytes % (Manual) 6.0 % (0.0-7.3) 06/07/17 04:21 Eosinophils % (Manual) 0 % (0.0-4.3) 06/07/17 04:21 Basophils % (Manual) 0 % (0.0-1.8) 06/07/17 04:21 Metamyelocytes % 0 % 06/07/17 04:21 Myelocytes % 0 % 06/07/17 04:21 Promyelocytes % 0 % 06/07/17 04:21 Blast Cells % 0 % 06/07/17 04:21 Nucleated RBC % Not Reportable 06/07/17 04:21 Seg Neutrophils # Man 9.8 K/mm3 (1.8-7.7) H 06/07/17 04:21 Band Neutrophils # 0.0 K/mm3 06/07/17 04:21 Abs Lymphs (Manual) 652 cells/uL (850-3900) L 06/03/17 16:36 Lymphocytes # (Manual) 0.8 K/mm3 (1.2-5.4) L 06/07/17 04:21 Abs React Lymphs (Man) 0.0 K/mm3 06/07/17 04:21 Monocytes # (Manual) 0.7 K/mm3 (0.0-0.8) 06/07/17 04:21 Eosinophils # (Manual) 0.0 K/mm3 (0.0-0.4) 06/07/17 04:21 Basophils # (Manual) 0.0 K/mm3 (0.0-0.1) 06/07/17 04:21 Metamyelocytes # 0.0 K/mm3 06/07/17 04:21 Myelocytes # 0.0 K/mm3 06/07/17 04:21 Promyelocytes # 0.0 K/mm3 06/07/17 04:21 Blast Cells # 0.0 K/mm3 06/07/17 04:21 WBC Morphology Not Reportable 06/07/17 04:21 Hypersegmented Neuts Not Reportable 06/07/17 04:21 Hyposegmented Neuts Not Reportable 06/07/17 04:21 Hypogranular Neuts Not Reportable 06/07/17 04:21 Smudge Cells Not Reportable 06/07/17 04:21 Toxic Granulation Not Reportable 06/07/17 04:21 Toxic Vacuolation Not Reportable 06/07/17 04:21 Dohle Bodies Not Reportable 06/07/17 04:21 Pelger-Huet Anomaly Not Reportable 06/07/17 04:21 Dana Rods Not Reportable 06/07/17 04:21 Platelet Estimate Consistent w auto 06/07/17 04:21 Clumped Platelets Not Reportable 06/07/17 04:21 Plt Clumps, EDTA Not Reportable 06/07/17 04:21 Large Platelets Not Reportable 06/07/17 04:21 Giant Platelets Not Reportable 06/07/17 04:21 Platelet Satelliting Not Reportable 06/07/17 04:21 Plt Morphology Comment Not Reportable 06/07/17 04:21 RBC Morphology Not Reportable 06/07/17 04:21 Dimorphic RBCs Not Reportable 06/07/17 04:21 Polychromasia Not Reportable 06/07/17 04:21 Hypochromasia 1+ 06/07/17 04:21 Poikilocytosis Not Reportable 06/07/17 04:21 Anisocytosis 1+ 06/07/17 04:21 Microcytosis Not Reportable 06/07/17 04:21 Macrocytosis Not Reportable 06/07/17 04:21 Spherocytes Not Reportable 06/07/17 04:21 Pappenheimer Bodies Not Reportable 06/07/17 04:21 Sickle Cells Not Reportable 06/07/17 04:21 Target Cells Not Reportable 06/07/17 04:21 Tear Drop Cells Not Reportable 06/07/17 04:21 Ovalocytes Not Reportable 06/07/17 04:21 Helmet Cells Not Reportable 06/07/17 04:21 Tafoya-Quenemo Bodies Not Reportable 06/07/17 04:21 [place] Rings Not Reportable 06/07/17 04:21 Rhianna Cells Not Reportable 06/07/17 04:21 Bite Cells Not Reportable 06/07/17 04:21 Crenated Cell Not Reportable 06/07/17 04:21 Elliptocytes Not Reportable 06/07/17 04:21 Acanthocytes (Spur) Not Reportable 06/07/17 04:21 Rouleaux Not Reportable 06/07/17 04:21 Hemoglobin C Crystals Not Reportable 06/07/17 04:21 Schistocytes Rare 06/07/17 04:21 Malaria parasites Not Reportable 06/07/17 04:21 [place] Bodies Not Reportable 06/07/17 04:21 Hem Pathologist Commnt No 06/07/17 04:21 PT 13.9 Sec. (12.2-14.9) 06/02/17 15:19 INR 1.08 (0.87-1.13) 06/02/17 15:19 VBG pH 7.373 (7.320-7.420) 06/02/17 15:19 Sodium 131 mmol/L (137-145) L 06/07/17 04:21 Potassium 4.2 mmol/L (3.6-5.0) 06/07/17 04:21 Chloride 95.0 mmol/L (98-107) L 06/07/17 04:21 Carbon Dioxide 18 mmol/L (22-30) L 06/07/17 04:21 Anion Gap 22 mmol/L 06/07/17 04:21 BUN 40 mg/dL (9-20) H 06/07/17 04:21 Creatinine 4.4 mg/dL (0.8-1.5) H 06/07/17 04:21 Estimated GFR 15 ml/min 06/07/17 04:21 BUN/Creatinine Ratio 9.09 % 06/07/17 04:21 Glucose 91 mg/dL (75-100) 06/07/17 04:21 Lactic Acid 1.00 mmol/L (0.7-2.0) 06/02/17 23:09 Calcium 8.9 mg/dL (8.4-10.2) 06/07/17 04:21 Total Bilirubin 0.30 mg/dL (0.1-1.2) 06/07/17 04:21 Direct Bilirubin < 0.2 mg/dL (0-0.2) 06/07/17 04:21 Indirect Bilirubin 0.1 mg/dL 06/07/17 04:21 AST 29 units/L (5-40) 06/07/17 04:21 ALT 12 units/L (7-56) 06/07/17 04:21 Alkaline Phosphatase 58 units/L (35-129) 06/07/17 04:21 C-Reactive Protein 15.20 mg/dL (0.00-1.30) H 06/03/17 16:36 Total Protein 8.1 g/dL (6.3-8.2) 06/07/17 04:21 Albumin 2.8 g/dL (3.9-5) L 06/07/17 04:21 Albumin/Globulin Ratio 0.5 % 06/07/17 04:21 Urine Color Yellow (Yellow) 06/02/17 15:22 Urine Turbidity Clear (Clear) 06/02/17 15:22 Urine pH 7.0 (5.0-7.0) 06/02/17 15:22 Ur Specific [place] 1.014 (1.003-1.030) 06/02/17 15:22 Urine Protein >500 mg/dL (Negative) 06/02/17 15:22 Urine Glucose (UA) Neg mg/dL (Negative) 06/02/17 15:22 Urine Ketones Neg mg/dL (Negative) 06/02/17 15:22 Urine Blood Neg (Negative) 06/02/17 15:22 Urine Nitrite Neg (Negative) 06/02/17 15:22 Urine Bilirubin Neg (Negative) 06/02/17 15:22 Urine Urobilinogen < 2.0 mg/dL (<2.0) 06/02/17 15:22 Ur Leukocyte Esterase Tr (Negative) 06/02/17 15:22 Urine WBC (Auto) 5.0 /HPF (0.0-6.0) 06/02/17 15:22 Urine RBC (Auto) 4.0 /HPF (0.0-6.0) 06/02/17 15:22 U Epithel Cells (Auto) 1.0 /HPF (0-13.0) 06/02/17 15:22 Urine Bacteria (Auto) 1+ /HPF (Negative) 06/02/17 15:22 Urine Mucus Few /HPF 06/02/17 15:22 Lymph Enumerat CD4/CD8 0.03 (0.86-5.00) L 06/03/17 16:36 % CD3 Cells 68 % (57-85) 06/03/17 16:36 Absolute CD3 Count 445 cells/uL (840-3060) L 06/03/17 16:36 % CD4 Cells 2 % (30-61) L 06/03/17 16:36 Absolute CD4 Count 13 cells/uL (490-1740) L 06/03/17 16:36 % CD8 Cells 62 % (12-42) H 06/03/17 16:36 Absolute CD8 Count 427 cells/uL (180-1170) 06/03/17 16:36 % CD19 Cells 16 % (6-29) 06/03/17 16:36 Absolute CD19 Count 100 cells/uL (110-660) L 06/03/17 16:36 <AMELIE GRESHAM - Last Filed: 06/07/17 19:03> Assessment and Plan Assessment and plan: I saw and evaluated the patient. I agree with the findings and the plan of care as documented in the Nurse Practitioner's~note, with the following corrections and additions. Patient seen and evaluated along with the nurse practitioner, physical examination performed, treatment plan formulated Agree with the above documentation and plan of care Patient had MRCP which was negative for acute findings MRCP; no evidence of biliary dilatation bilateral lower lung infiltrates, some incidental findings GI and ID recommendations noted and appreciated Plan of care discussed with the patient his nurse and case management Hospitalist Physical - Constitutional Vitals: Temp Pulse Resp BP Pulse Ox 99.8 F H 110 H 18 140/85 92 06/07/17 15:35 06/07/17 15:35 06/07/17 15:35 06/07/17 15:35 06/07/17 15:35 Results - Labs CBC & Chem 7: 06/07/17 04:21 06/07/17 04:21 Labs: Laboratory Last Values WBC 11.3 K/mm3 (4.5-11.0) H 06/07/17 04:21 RBC 3.49 M/mm3 (3.65-5.03) L 06/07/17 04:21 Hgb 8.6 gm/dl (11.8-15.2) L 06/07/17 04:21 Hct 26.1 % (35.5-45.6) L 06/07/17 04:21 MCV 75 fl (84-94) L 06/07/17 04:21 MCH 25 pg (28-32) L 06/07/17 04:21 MCHC 33 % (32-34) 06/07/17 04:21 RDW 16.0 % (13.2-15.2) H 06/07/17 04:21 Plt Count 284 K/mm3 (140-440) 06/07/17 04:21 Add Manual Diff Complete 06/07/17 04:21 Total Counted 100 06/07/17 04:21 Seg Neuts % (Manual) 87.0 % (40.0-70.0) H 06/07/17 04:21 Band Neutrophils % 0 % 06/07/17 04:21 Lymphocytes % (Manual) 7.0 % (13.4-35.0) L 06/07/17 04:21 Reactive Lymphs % (Man) 0 % 06/07/17 04:21 Monocytes % (Manual) 6.0 % (0.0-7.3) 06/07/17 04:21 Eosinophils % (Manual) 0 % (0.0-4.3) 06/07/17 04:21 Basophils % (Manual) 0 % (0.0-1.8) 06/07/17 04:21 Metamyelocytes % 0 % 06/07/17 04:21 Myelocytes % 0 % 06/07/17 04:21 Promyelocytes % 0 % 06/07/17 04:21 Blast Cells % 0 % 06/07/17 04:21 Nucleated RBC % Not Reportable 06/07/17 04:21 Seg Neutrophils # Man 9.8 K/mm3 (1.8-7.7) H 06/07/17 04:21 Band Neutrophils # 0.0 K/mm3 06/07/17 04:21 Abs Lymphs (Manual) 652 cells/uL (850-3900) L 06/03/17 16:36 Lymphocytes # (Manual) 0.8 K/mm3 (1.2-5.4) L 06/07/17 04:21 Abs React Lymphs (Man) 0.0 K/mm3 06/07/17 04:21 Monocytes # (Manual) 0.7 K/mm3 (0.0-0.8) 06/07/17 04:21 Eosinophils # (Manual) 0.0 K/mm3 (0.0-0.4) 06/07/17 04:21 Basophils # (Manual) 0.0 K/mm3 (0.0-0.1) 06/07/17 04:21 Metamyelocytes # 0.0 K/mm3 06/07/17 04:21 Myelocytes # 0.0 K/mm3 06/07/17 04:21 Promyelocytes # 0.0 K/mm3 06/07/17 04:21 Blast Cells # 0.0 K/mm3 06/07/17 04:21 WBC Morphology Not Reportable 06/07/17 04:21 Hypersegmented Neuts Not Reportable 06/07/17 04:21 Hyposegmented Neuts Not Reportable 06/07/17 04:21 Hypogranular Neuts Not Reportable 06/07/17 04:21 Smudge Cells Not Reportable 06/07/17 04:21 Toxic Granulation Not Reportable 06/07/17 04:21 Toxic Vacuolation Not Reportable 06/07/17 04:21 Dohle Bodies Not Reportable 06/07/17 04:21 Pelger-Huet Anomaly Not Reportable 06/07/17 04:21 Dana Rods Not Reportable 06/07/17 04:21 Platelet Estimate Consistent w auto 06/07/17 04:21 Clumped Platelets Not Reportable 06/07/17 04:21 Plt Clumps, EDTA Not Reportable 06/07/17 04:21 Large Platelets Not Reportable 06/07/17 04:21 Giant Platelets Not Reportable 06/07/17 04:21 Platelet Satelliting Not Reportable 06/07/17 04:21 Plt Morphology Comment Not Reportable 06/07/17 04:21 RBC Morphology Not Reportable 06/07/17 04:21 Dimorphic RBCs Not Reportable 06/07/17 04:21 Polychromasia Not Reportable 06/07/17 04:21 Hypochromasia 1+ 06/07/17 04:21 Poikilocytosis Not Reportable 06/07/17 04:21 Anisocytosis 1+ 06/07/17 04:21 Microcytosis Not Reportable 06/07/17 04:21 Macrocytosis Not Reportable 06/07/17 04:21 Spherocytes Not Reportable 06/07/17 04:21 Pappenheimer Bodies Not Reportable 06/07/17 04:21 Sickle Cells Not Reportable 06/07/17 04:21 Target Cells Not Reportable 06/07/17 04:21 Tear Drop Cells Not Reportable 06/07/17 04:21 Ovalocytes Not Reportable 06/07/17 04:21 Helmet Cells Not Reportable 06/07/17 04:21 Tafoya-Quenemo Bodies Not Reportable 06/07/17 04:21 [place] Rings Not Reportable 06/07/17 04:21 [place] Cells Not Reportable 06/07/17 04:21 Bite Cells Not Reportable 06/07/17 04:21 Crenated Cell Not Reportable 06/07/17 04:21 Elliptocytes Not Reportable 06/07/17 04:21 Acanthocytes (Spur) Not Reportable 06/07/17 04:21 Rouleaux Not Reportable 06/07/17 04:21 Hemoglobin C Crystals Not Reportable 06/07/17 04:21 Schistocytes Rare 06/07/17 04:21 Malaria parasites Not Reportable 06/07/17 04:21 [place] Bodies Not Reportable 06/07/17 04:21 Hem Pathologist Commnt No 06/07/17 04:21 PT 13.9 Sec. (12.2-14.9) 06/02/17 15:19 INR 1.08 (0.87-1.13) 06/02/17 15:19 VBG pH 7.373 (7.320-7.420) 06/02/17 15:19 Sodium 131 mmol/L (137-145) L 06/07/17 04:21 Potassium 4.2 mmol/L (3.6-5.0) 06/07/17 04:21 Chloride 95.0 mmol/L (98-107) L 06/07/17 04:21 Carbon Dioxide 18 mmol/L (22-30) L 06/07/17 04:21 Anion Gap 22 mmol/L 06/07/17 04:21 BUN 40 mg/dL (9-20) H 06/07/17 04:21 Creatinine 4.4 mg/dL (0.8-1.5) H 06/07/17 04:21 Estimated GFR 15 ml/min 06/07/17 04:21 BUN/Creatinine Ratio 9.09 % 06/07/17 04:21 Glucose 91 mg/dL (75-100) 06/07/17 04:21 Lactic Acid 1.00 mmol/L (0.7-2.0) 06/02/17 23:09 Calcium 8.9 mg/dL (8.4-10.2) 06/07/17 04:21 Total Bilirubin 0.30 mg/dL (0.1-1.2) 06/07/17 04:21 Direct Bilirubin < 0.2 mg/dL (0-0.2) 06/07/17 04:21 Indirect Bilirubin 0.1 mg/dL 06/07/17 04:21 AST 29 units/L (5-40) 06/07/17 04:21 ALT 12 units/L (7-56) 06/07/17 04:21 Alkaline Phosphatase 58 units/L (35-129) 06/07/17 04:21 C-Reactive Protein 15.20 mg/dL (0.00-1.30) H 06/03/17 16:36 Total Protein 8.1 g/dL (6.3-8.2) 06/07/17 04:21 Albumin 2.8 g/dL (3.9-5) L 06/07/17 04:21 Albumin/Globulin Ratio 0.5 % 06/07/17 04:21 Urine Color Yellow (Yellow) 06/02/17 15:22 Urine Turbidity Clear (Clear) 06/02/17 15:22 Urine pH 7.0 (5.0-7.0) 06/02/17 15:22 Ur Specific [place] 1.014 (1.003-1.030) 06/02/17 15:22 Urine Protein >500 mg/dL (Negative) 06/02/17 15:22 Urine Glucose (UA) Neg mg/dL (Negative) 06/02/17 15:22 Urine Ketones Neg mg/dL (Negative) 06/02/17 15:22 Urine Blood Neg (Negative) 06/02/17 15:22 Urine Nitrite Neg (Negative) 06/02/17 15:22 Urine Bilirubin Neg (Negative) 06/02/17 15:22 Urine Urobilinogen < 2.0 mg/dL (<2.0) 06/02/17 15:22 Ur Leukocyte Esterase Tr (Negative) 06/02/17 15:22 Urine WBC (Auto) 5.0 /HPF (0.0-6.0) 06/02/17 15:22 Urine RBC (Auto) 4.0 /HPF (0.0-6.0) 06/02/17 15:22 U Epithel Cells (Auto) 1.0 /HPF (0-13.0) 06/02/17 15:22 Urine Bacteria (Auto) 1+ /HPF (Negative) 06/02/17 15:22 Urine Mucus Few /HPF 06/02/17 15:22 Lymph Enumerat CD4/CD8 0.03 (0.86-5.00) L 06/03/17 16:36 % CD3 Cells 68 % (57-85) 06/03/17 16:36 Absolute CD3 Count 445 cells/uL (840-3060) L 06/03/17 16:36 % CD4 Cells 2 % (30-61) L 06/03/17 16:36 Absolute CD4 Count 13 cells/uL (490-1740) L 06/03/17 16:36 % CD8 Cells 62 % (12-42) H 06/03/17 16:36 Absolute CD8 Count 427 cells/uL (180-1170) 06/03/17 16:36 % CD19 Cells 16 % (6-29) 06/03/17 16:36 Absolute CD19 Count 100 cells/uL (110-660) L 06/03/17 16:36
[2017-06-07] MEDS: BACTRIM 300 MG in D5W 500 ML IV SCH ×3 (08:00→23:43)
--- NOTE | 2017-06-07 09:20 | Progress Note ---
Assessment and Plan IMPRESSION * Stage III chronic kidney disease secondary to hypertensive nephrosclerosis vs HIVAN --24h urine CrCl 35ml/min (April 2017) * Fever * Presumed PCP * HIV - dx April 2017 * Metabolic acidosis - improving * Hypertension * Proteinuria, subnephrotic * Hyponatremia PLAN: * Renal function is stable. Continue current management * Continue NS * Abx/antifungals per ID; noncontrast CT chest/abd reviewed * Note Bactrim; monitor K closely * Continue antiHTN medications * Dose medications for renal function * Avoid potential nephrotoxins. * AM labs Subjective Date of service: 06/07/17 Interval history: Patient says he is feeling better. Congestion and SOB have improved. Objective - Vital Signs Vital signs: Vital Signs - 12hr 06/06/17 06/06/17 06/07/17 22:00 23:00 00:00 Temperature 99.2 F Pulse Rate 112 H 112 H Pulse Rate [ 78 Apical] Respiratory 20 Rate Respiratory 18 Rate [ GENERALIZED] Blood Pressure 121/66 121/66 O2 Sat by Pulse 98 Oximetry - General Appearance General appearance: well-developed, well-nourished EENT: ATNC Respiratory: Present: Clear to Ascultation Cardiology: regular, S1S2 Gastrointestinal: normal, no tenderness, no distended Integumentary: no rash Neurologic: alert and oriented x3 Musculoskeletal: other (no edema) Psychiatric: cooperative - Lab 06/07/17 04:21 06/07/17 04:21 Most recent lab results Calcium 8.9 mg/dL (8.4-10.2) 06/07/17 04:21
[2017-06-07] MEDS: CATAPRES PO SCH (10:00)
[2017-06-07] MEDS: HEPARIN SUB-Q SCH ×2 (10:00→23:49)
[2017-06-07] MEDS: DIFLUCAN/NS 100 MG/50 ML 100 MG/50 ML BAG IV SCH (13:49)
[2017-06-07] MEDS: IMDUR PO SCH (13:56)
[2017-06-07] MEDS: KEPPRA PO SCH ×2 (13:56→21:45)
[2017-06-07] MEDS: PROCARDIA XL PO SCH (13:56)
--- NOTE | 2017-06-07 13:56 | Progress Note ---
Assessment and Plan Assessment: 1) Sepsis: fever trending down. Etiology ? biliary infection ? Pneumonia -CRP=16 -Serum crypto ag neg 2) Abdominal pain, N/V/D ? from AIDS or opportunistic infection - still abdominal pain -CT abdomen + 6.8 cm cyst in the port c/w choledocal cyst versus dilated CBD 3) Cough: CXR neg; ? PJP pneumonia - better -CT chest + bilateral infiltrates 4) AIDS: VL found at [id number] on 04/12/17, CD4=13. Never treated. He was not taking any prophylaxis. 5) KEATON ? hypertensive nephropathy versus AIDS-related 6) Oral candidiasis - better 7) HTN - uncontrolled Plan: -MRCP pending, appreciate GI med eval -continue to IV bactrim - renally dosed - for presumed PCP -continue zosyn IV empirically to cover ? presumed biliary obstruction -f/u procalcitonin -f/u AFB blood cultures -continue Fluconazole -continue azithromycin 1600 mg q week for MAC prophylaxis -discussed with IMS Thank you Dr Barnes for your consultation, will follow up with you. Cydney Ash MD Infectious Diseases Specialist [facility], [place], [facility] ([facility]) M [phone] O [phone] Subjective Date of service: 06/07/17 Interval history: Feels better abdominal pain better, still nausea and vomiting x 1 this am, fever trending down . Current Antimicrobials: 06/03 fluconazole 06/04 bactrim DS 06/06 zosyn Previous Antimicrobials: Microbiology: Blood cultures: 06/02 neg Urine cultures: 06/02 10-100K mixed sp Respiratory cultures: Wound cultures: Stool cultures: Other: Cryptococcal serum antigen neg Cryptosporidiosis neg C diff neg Objective - Exam Narrative Exam: General appearance: Alert in NAD, conversant Eyes: anicteric sclerae, moist conjunctivae; no lid-lag; PERRLA HENT: Atraumatic; +oral thrush Neck: Trachea midline; supple, no thyromegaly or lymphadenopathy Lungs: harsha rhonchi CV: tachy Abdomen: TTP diffusely Extremities: No peripheral edema or extremity lymphadenopathy Skin: Normal temperature, turgor and texture; no rash, ulcers or subcutaneous nodules Psych: Appropriate affect, alert and oriented to person, place and time. Neuro: alert and oriented x 3. Moving all extermities Lines: No CVL / PICC - Constitutional Vitals: Vital Signs Temp Pulse Resp BP Pulse Ox 99.2 F 112 H 20 121/66 98 06/07/17 00:00 06/07/17 00:00 06/07/17 00:00 06/07/17 00:00 06/07/17 00:00 Temperature -Last 24 Hours Temperature 99.2 F Temperature 98.7 F - Labs CBC & Chem 7: 06/07/17 04:21 06/07/17 04:21 Labs: Abnormal lab results 06/07/17 06/07/17 Range/Units 04:21 04:21 WBC 11.3 H (4.5-11.0) K/mm3 RBC 3.49 L (3.65-5.03) M/mm3 Hgb 8.6 L (11.8-15.2) gm/dl Hct 26.1 L (35.5-45.6) % MCV 75 L (84-94) fl MCH 25 L (28-32) pg RDW 16.0 H (13.2-15.2) % Seg Neuts % (Manual) 87.0 H (40.0-70.0) % Lymphocytes % (Manual) 7.0 L (13.4-35.0) % Seg Neutrophils # Man 9.8 H (1.8-7.7) K/mm3 Lymphocytes # (Manual) 0.8 L (1.2-5.4) K/mm3 Sodium 131 L (137-145) mmol/L Chloride 95.0 L (98-107) mmol/L Carbon Dioxide 18 L (22-30) mmol/L BUN 40 H (9-20) mg/dL Creatinine 4.4 H (0.8-1.5) mg/dL Albumin 2.8 L (3.9-5) g/dL
--- NOTE | 2017-06-07 15:32 | Magnetic Resonance Report ---
MR ABDOMEN MRCP History: Dilated common bile duct, abdominal pain., Persistent fever. Technique: Multiple T1 and T2-weighted images with and without fat suppression. Thin and thick slab MRCP images. Rotational MIP images. Findings: The CT abdomen pelvis without contrast performed 06/05/17 was reviewed. Heart size is normal. Patchy infiltrates are detected in both lower lobes concerning for pulmonary edema or bilateral pneumonia. No pleural effusion. The liver and spleen are normal size, contour and signal intensity. No parenchymal disease or focal mass. Again, there is a large cystic structure within the nikolas hepatis measuring 5.9 x 4.9 x 5.3 cm. The gallbladder, intrahepatic ducts and pancreatic duct are normal on MRCP. There is no evidence for cholelithiasis or acute cholecystitis. I cannot confidently identify a normal common bile duct. This is highly suggestive of a choledochal cyst. The kidneys, adrenal glands, bowel loops and aorta are unremarkable. No ascites or bulky adenopathy. Impression: Choledochal cyst. See above. This may be an incidental finding. There is no evidence for intrahepatic biliary dilatation. Otherwise, unremarkable MR of the abdomen. Bilateral lower lung infiltrates.
--- NOTE | 2017-06-07 17:10 | Event Note ---
Date: 06/07/17 Patient off the floor at the time of rounds this morning (receiving MRCP). Will f/u results. Further recommendations to follow.
[2017-06-08] MEDS: CATAPRES PO SCH (01:10)
[2017-06-08 05:44] LABS: BUN/Creatinine Ratio 9.04; Calcium 8.5 mg/dL (8.4-10.2); Chloride 99.2 mmol/L (98-107)
[2017-06-08 06:05] LABS: Hemoglobin 8.7 gm/dl (11.8-15.2); Mean Corpuscular HGB Conc 33 % (32-34); Mean Corpuscular Volume 75 fl (84-94); Platelet Count 286 K/mm3 (140-440); Red Blood Count 3.48 M/mm3 (3.65-5.03); White Blood Count 7.7 K/mm3 (4.5-11.0)
[2017-06-08 06:08] LABS: Mean Corpuscular Hemoglobin 25 pg (28-32)
[2017-06-08] MEDS: APRESOLINE PO SCH (06:50)
[2017-06-08] MEDS: ZOSYN/NS 2.25 GM/50ML 2.25 GM/50 ML BAG IV SCH (06:52)
[2017-06-08] MEDS: BACTRIM 300 MG in D5W 500 ML IV SCH (07:00)
--- NOTE | 2017-06-08 07:24 | Discharge Summary ---
Addendum entered and electronically signed by IRENE REILLY NP 06/08/17 17:49 : Bactrim dose changed, called to patients pharmacy [facility] at [phone] and I corrected the dose. Patient was informed about the change that we made and he agreed to pick it up from the above pharmacy. Addendum entered and electronically signed by IRENE REILLY NP 06/08/17 14:35 : Discharge Diagnosed Sepsis, Acute gastroenteritis fever Cough Chronic kidney disease stage III, Hypertensive urgency AIDS, Oral thrush Seizure disorder Hepatic Cyst Addendum entered and electronically signed by IRENE REILLY NP 06/08/17 13:39 : Infectious diseases changed higher does of Bactrim after checking the labs. I called and asked patient to come and take the new prescription with the right does. I discussed with Mr. Cao at phone number [phone] and he agreed to come and slat pickler from the nursing station. Original Note: <IRENE REILLY - Last Filed: 06/08/17 13:38> Providers - Providers Date of Admission: 06/02/17 23:47 Date of discharge: 06/08/17 Attending physician: AMELIE GRESHAM 06/03/17 07:41 Consult to Physician [CONS] Routine Consulting Provider: KVNG MENDIETA Reason For Exam: HIV,fever,N/V Place consult to:: dr. durham Notified:: Phone number called:: [phone] Was contact made?: Yes If yes, spoke with:: dr. durham Time called:: 09:09 06/04/17 07:54 Consult to Physician [CONS] Routine Consulting Provider: SERENA FIELDS Reason For Exam: CKD Place consult to:: DR. JIMENEZ Notified:: DR. JIMENEZ Phone number called:: IN HOUSE Was contact made?: Yes If yes, spoke with:: DR. JIMENEZ Time called:: 09:50 Comment:: DARREL BRIGHT 06/06/17 10:26 Consult to Physician [CONS] Routine Consulting Provider: HOSEA SEGURA Reason For Exam: Hepatic cyst,Dialated CBD Place consult to:: dr. segura Notified:: office Phone number called:: [phone] Was contact made?: Yes If yes, spoke with:: lorene Time called:: 11:19 Primary care physician: REFUSE DRIVER Hospitalization Condition: Stable Hospital course: Patient is a 36-year-old black Afriacn [place] male with history of hypertension, chronic kidney disease, seizure, HIV unknown CD4 count who presents to the emergency room with complaints of nausea vomiting and diarrhea 5 days.Patient was diagnosis with sepsis, acute gastroenteritis, fever, cough, chronic kidney disease stage III, hypertensive urgency, HIV/AIDS, chronic, oral thrush, seizure disorder and Hepatic Cyst.MRCP; no evidence of biliary dilatation bilateral lower lung infiltrates, some incidental findings. Chest CT revealed diffuse bilateral pneumonia. Negative blood and urine cultures, Stool WBC, culture,ova /parasites no growth. AIDS VL found at 107,951, CD4 =13, Patient never treated. He was not taking any prophylaxis. He was treated with oral and IV antihypertensive antifungal, antisezure medications and IV antibiotics. Patient completed a full course of antibiotic. He is being discharged on oral antibiotic. Also D/C with oral antibiotic for MAC prophylaxis until CD4 >200. Patient co-managed with Infectious diseases, Gastroenlerology and nephrology. Patient is clinically improved and stable for discharge. Patient strongly advised to follow-up HIV clinic as soon as possible. Patient advised to follow-up with her primary care provider. Disposition: - TO HOME OR SELFCARE Time spent for discharge: 33 minutes Core Measure Documentation - Palliative Care Palliative Care/ Comfort Measures: Not Applicable - Core Measures Any of the following diagnoses?: none Exam - Constitutional Vitals: Temp Pulse Resp BP Pulse Ox 98.4 F 107 H 103 H 135/76 95 06/07/17 23:00 06/08/17 01:10 06/07/17 23:00 06/08/17 01:10 06/07/17 23:00 General appearance: Present: no acute distress - EENT Eyes: Present: PERRL ENT: hearing intact - Neck Neck: Present: supple - Respiratory Respiratory effort: normal Respiratory: right: wheezing (mild clinically optimized) - Cardiovascular Heart rate: 106 Rhythm: regular Heart Sounds: Present: S1 & S2 - Extremities Extremities: no ischemia Peripheral Pulses: within normal limits - Abdominal General gastrointestinal: Present: soft, non-tender Male genitourinary: Present: deferred - Rectal Rectal Exam: deferred - Integumentary Integumentary: Present: clear, warm, dry - Musculoskeletal Musculoskeletal: strength equal bilaterally - Psychiatric Psychiatric: appropriate mood/affect - Neurologic Neurologic: CNII-XII intact - Allied Health Allied health notes reviewed: nursing Plan Activity: no restrictions Weight Bearing Status: Weight Bear as Tolerated Diet: regular Follow up with: PRIMARY CARE, [Primary Care Provider] - 3-5 Days Prescriptions: Azithromycin [Zithromax TAB] 1,200 mg PO QWEEK #30 tablet ISOSORBIDE MONOnitrate [Imdur ER] 30 mg PO QDAY #30 tablet levETIRAcetam [Keppra TAB] 500 mg PO BID #60 tablet NIFEdipine XL [Procardia Xl] 90 mg PO QDAY #30 tablet Spironolactone [Aldactone] 25 mg PO BID #60 tablet <AMELIE GRESHAM - Last Filed: 06/08/17 20:21> Providers - Providers Date of Admission: 06/02/17 23:47 Attending physician: AMELIE GRESHAM 06/03/17 07:41 Consult to Physician [CONS] Routine Consulting Provider: KVNG MENDIETA Reason For Exam: HIV,fever,N/V Place consult to:: dr. durham Notified:: Phone number called:: [phone] Was contact made?: Yes If yes, spoke with:: dr. durham Time called:: 09:09 06/04/17 07:54 Consult to Physician [CONS] Routine Consulting Provider: SERENA FIELDS Reason For Exam: CKD Place consult to:: DR. JIMENEZ Notified:: DR. JIMENEZ Phone number called:: IN HOUSE Was contact made?: Yes If yes, spoke with:: DR. JIMENEZ Time called:: 09:50 Comment:: DARREL NOTIFIED 06/06/17 10:26 Consult to Physician [CONS] Routine Consulting Provider: HOSEA SEGURA Reason For Exam: Hepatic cyst,Dialated CBD Place consult to:: dr. segura Notified:: office Phone number called:: [phone] Was contact made?: Yes If yes, spoke with:Luna paulson Time called:: 11:19 Primary care physician: REFUSE DRIVER Exam - Constitutional Vitals: Temp Pulse Resp BP Pulse Ox 99.1 F 106 H 18 139/85 98 06/08/17 06:55 06/08/17 06:55 06/08/17 06:55 06/08/17 06:55 06/08/17 06:55 Plan Additional Instructions: Prescription was called in for Diflucan 200 mg by mouth daily for 14 days
[2017-06-08 07:42] LABS: Blastocytes % (Manual) 0 %; Eosinophils % (Manual) 0 % (0.0-4.3)
[2017-06-08 07:43] LABS: Anisocytosis 1+; Elliptocytes 1+; Hypersegmented Neutrophils Few; Hypochromasia 2+
[2017-06-08 07:44] LABS: Diff Status Complete
[2017-06-08 09:02] VITALS: BP 139/85
[2017-06-08] MEDS ORDERED: DIFLUCAN PO SCH (10:00)
--- NOTE | 2017-06-08 12:52 | Progress Note ---
Assessment and Plan Assessment: 1) Sepsis: fever resolved. Etiology ? Pneumonia -CRP=16 -Serum crypto ag neg 2) Abdominal pain, N/V/D ? 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 PJP pneumonia - better -CT chest + bilateral infiltrates 4) AIDS: VL found at 107,951 on 04/12/17, CD4=13. Never treated. He was not taking any prophylaxis. 5) KEATON ? hypertensive nephropathy versus AIDS-related 6) Oral candidiasis - better 7) HTN - uncontrolled Plan: -continue to IV bactrim - renally dosed - for presumed PCP -continue zosyn IV empirically to cover ? presumed biliary obstruction -f/u procalcitonin -f/u AFB blood cultures -continue Fluconazole -continue azithromycin 1600 mg q week for MAC prophylaxis -discussed with IMS -upon discharge will do bactrim DS 2 tab 3 times a week for 21 day then 1 tab 3 times a week for prevention, azithromycin 1600 mg po qweek and fluconazole 200 mg po qday for [address] Barnes for your consultation, will follow up with you. Cydney Ash MD Infectious Diseases Specialist [facility] M [phone] O [phone] Subjective Date of service: 06/08/17 Interval history: Feels good some nausea no vomiting tmax 101.2 yesterday Current Antimicrobials: 06/03 fluconazole 06/04 bactrim DS 06/06 zosyn Previous Antimicrobials: Microbiology: Blood cultures: 06/02 neg Urine cultures: 06/02 10-100K mixed sp Respiratory cultures: Wound cultures: Stool cultures: Other: Cryptococcal serum antigen neg Cryptosporidiosis neg C diff neg Objective - Exam Narrative Exam: General appearance: Alert in NAD, conversant Eyes: anicteric sclerae, moist conjunctivae; no lid-lag; PERRLA HENT: Atraumatic; +oral thrush better Neck: Trachea midline; supple, no thyromegaly or lymphadenopathy Lungs: harsha rhonchi CV: tachy Abdomen: TTP diffusely Extremities: No peripheral edema or extremity lymphadenopathy Skin: Normal temperature, turgor and texture; no rash, ulcers or subcutaneous nodules Psych: Appropriate affect, alert and oriented to person, place and time. Neuro: alert and oriented x 3. Moving all extermities Lines: No CVL / PICC - Constitutional Vitals: Vital Signs Temp Pulse Resp BP Pulse Ox 99.1 F 106 H 18 139/85 98 06/08/17 06:55 06/08/17 06:55 06/08/17 06:55 06/08/17 06:55 06/08/17 06:55 Temperature -Last 24 Hours Temperature 99.1 F Temperature 98.4 F Temperature 99.8 F - Labs CBC & Chem 7: 06/08/17 04:07 06/08/17 04:07 Labs: Abnormal lab results 06/08/17 06/08/17 Range/Units 04:07 04:07 RBC 3.48 L (3.65-5.03) M/mm3 Hgb 8.7 L (11.8-15.2) gm/dl Hct 26.0 L (35.5-45.6) % MCV 75 L (84-94) fl MCH 25 L (28-32) pg RDW 16.0 H (13.2-15.2) % Seg Neuts % (Manual) 78.0 H (40.0-70.0) % Lymphocytes % (Manual) 8.0 L (13.4-35.0) % Lymphocytes # (Manual) 0.6 L (1.2-5.4) K/mm3 Sodium 133 L (137-145) mmol/L Carbon Dioxide 15 L (22-30) mmol/L BUN 38 H (9-20) mg/dL Creatinine 4.2 H (0.8-1.5) mg/dL
== END 2017-06-08 13:11 | disposition home or self-care (01) | DRG 975 ==
LOC: ED 14:34 → 3A 23:47
PROVIDERS: ADMIT Internal Medicine; ATTEND Internal Medicine
PROC: 3E0234Z Introduction of Serum, Toxoid and Vaccine into Muscle, Percutaneous Approach (ICD-10-PCS; principal; 2017-06-03)
DX: A41.9 Sepsis, unspecified organism (principal); B20 Human immunodeficiency virus [HIV] disease; E87.1 Hypo-osmolality and hyponatremia; J18.9 Pneumonia, unspecified organism; B37.0 Candidal stomatitis; K52.89 Other specified noninfective gastroenteritis and colitis; N18.3 Chronic kidney disease, stage 3 (moderate); I16.0 Hypertensive urgency; I12.9 Hypertensive chronic kidney disease with stage 1 through stage 4 chronic kidney disease, or unspecified chronic kidney disease; R80.9 Proteinuria, unspecified; G40.909 Epilepsy, unspecified, not intractable, without status epilepticus; K76.89 Other specified diseases of liver; Z82.49 Family history of ischemic heart disease and other diseases of the circulatory system; Z91.14 Patient's other noncompliance with medication regimen; Z23 Encounter for immunization
CPT/HCPCS: 36415; 71020; 71250; 74176; 74181; 80048; 80053; 80074; 81001; 82024; 82140; 82805; 85007; 85025; 85027; 85610; 86140; 86403; 87040; 87045; 87076; 87086; 87177; 87493; 90732; 93005; 93010; 94760; 96365; 96368; 96375; 99406; J0360; J0456; J1450; J1644; J2405; J2543; J2930; J3480; J7030; J7050; J7060

== ENCOUNTER 2017-09-19 10:51 | Inpatient (IN) | payer SELFPAY ==
[2017-09-19] MEDS ORDERED: CATAPRES ONE (11:47)
[2017-09-19] MEDS ORDERED: CATAPRES PO ONE (11:51)
--- NOTE | 2017-09-19 11:52 | Emergency Department Report ---
ED Altered Mental Status HPI - General Chief Complaint: Altered Mental Status Stated Complaint: AMS Time Seen by Provider: 09/19/17 11:49 Source: patient, EMS Mode of arrival: Stretcher Limitations: No Limitations - History of Present Illness Initial Comments: Patient is 37 years old male with history of high blood pressure brought to the ER for evaluation of altered mental status. Patient is alert and oriented 3 in the ER now able to give history. He stated that he passed out for few minutes. He admitted using marijuana this morning. Patient denied any headache , numbness tingling sensation, weakness, bowel or bladder incontinence. Patient also denied neck stiffness or fever. MD Complaint: altered mental status, confusion Severity: moderate Context: drug abuse - Related Data Previous Rx's Medication Instructions Recorded Last Taken Type ISOSORBIDE MONOnitrate [Imdur ER] 30 mg PO QDAY #30 tablet 06/08/17 Unknown Rx NIFEdipine XL [Procardia Xl] 90 mg PO QDAY #30 tablet 06/08/17 Unknown Rx Allergies Allergy/AdvReac Type Severity Reaction Status Date / Time No Known Allergies Allergy Unverified 04/10/17 15:20 ED Review of Systems ROS: Stated complaint: AMS Other details as noted in HPI Comment: All other systems reviewed and negative Constitutional: denies: chills, fever Respiratory: denies: cough, orthopnea, shortness of breath, SOB with exertion Cardiovascular: denies: chest pain, palpitations, dyspnea on exertion Gastrointestinal: denies: abdominal pain, nausea, vomiting, diarrhea Musculoskeletal: denies: back pain Neurological: denies: headache, weakness, numbness, paresthesias, confusion, abnormal gait ED Past Medical Hx - Past Medical History Previous Medical History?: Yes Hx Hypertension: Yes Hx Congestive Heart Failure: No Hx Diabetes: No Hx Renal Disease: Yes Hx Seizures: Yes Hx Asthma: No Hx COPD: No Hx HIV: Yes - Surgical History Past Surgical History?: No - Social History Smoking Status: Never Smoker Substance Use Type: Marijuana - Medications Home Medications: Home Medications Medication Instructions Recorded Confirmed Last Taken Type ISOSORBIDE MONOnitrate [Imdur ER] 30 mg PO QDAY #30 tablet 06/08/17 09/19/17 Unknown Rx NIFEdipine XL [Procardia Xl] 90 mg PO QDAY #30 tablet 06/08/17 09/19/17 Unknown Rx ED Physical Exam - General Limitations: No Limitations General appearance: alert, in no apparent distress - Head Head exam: Present: atraumatic, normocephalic - Eye Eye exam: Present: normal appearance, PERRL - ENT ENT exam: Present: normal exam, normal orophraynx, mucous membranes moist - Neck Neck exam: Present: normal inspection, full ROM. Absent: tenderness, meningismus, lymphadenopathy - Respiratory Respiratory exam: Present: normal lung sounds bilaterally. Absent: respiratory distress, wheezes, rales, rhonchi, chest wall tenderness, accessory muscle use, decreased breath sounds, prolonged expiratory - Cardiovascular Cardiovascular Exam: Present: regular rate, normal rhythm, normal heart sounds - GI/Abdominal GI/Abdominal exam: Present: soft, normal bowel sounds. Absent: distended, tenderness, guarding, rebound, rigid, diminished bowel sounds, mass, bruit, pulsatile mass, hernia - Extremities Exam Extremities exam: Present: normal inspection, full ROM, normal capillary refill - Back Exam Back exam: Present: normal inspection. Absent: CVA tenderness (R), CVA tenderness (L) - Neurological Exam Neurological exam: Present: alert, oriented X3, CN II-XII intact, normal gait - Skin Skin exam: Present: warm, intact, normal color. Absent: cyanosis ED Course Vital Signs 09/19/17 09/19/17 09/19/17 11:11 11:16 11:22 Temperature 97.6 F Pulse Rate 103 H 103 H Respiratory 29 H 17 30 H Rate Blood Pressure 214/152 195/143 O2 Sat by Pulse 97 94 Oximetry 09/19/17 09/19/17 09/19/17 11:30 11:31 11:44 Temperature Pulse Rate 101 H 102 H Respiratory 22 18 Rate Blood Pressure 214/152 214/152 O2 Sat by Pulse 94 100 Oximetry 09/19/17 09/19/17 09/19/17 11:54 12:00 12:16 Temperature Pulse Rate 94 H 94 H 94 H Respiratory 16 26 H Rate Blood Pressure 214/152 214/152 197/155 O2 Sat by Pulse 94 97 Oximetry 09/19/17 09/19/17 09/19/17 12:30 12:46 13:00 Temperature Pulse Rate 89 96 H 86 Respiratory 20 22 16 Rate Blood Pressure 213/141 214/152 214/152 O2 Sat by Pulse 91 95 99 Oximetry 09/19/17 09/19/17 09/19/17 13:16 13:30 13:45 Temperature Pulse Rate 86 88 86 Respiratory 13 16 21 Rate Blood Pressure 197/140 214/129 241/158 O2 Sat by Pulse 98 96 Oximetry 09/19/17 09/19/17 09/19/17 13:58 14:00 14:16 Temperature Pulse Rate 90 84 94 H Respiratory 17 35 H Rate Blood Pressure 211/161 212/119 241/158 O2 Sat by Pulse 97 Oximetry 09/19/17 14:30 Temperature Pulse Rate 84 Respiratory 35 H Rate Blood Pressure 241/142 O2 Sat by Pulse 93 Oximetry - Reevaluation(s) Reevaluation #1: 09/19/17 14:34 Patient had one episode of tonic-clonic generalized seizure in the ER, given 2 mg of Ativan and 1 g of Keppra. Patient is post ictal now. Reevaluation #2: 09/19/17 15:01 I will repeat the CT scan to make sure that there is no acute bleed that course patient's seizure in the ER. - Lab Data Result diagrams: 09/19/17 11:37 09/19/17 11:37 Lab Results 09/19/17 09/19/17 09/19/17 Range/Units 11:37 11:37 11:37 WBC 2.5 L (4.5-11.0) K/mm3 RBC 4.18 (3.65-5.03) M/mm3 Hgb 11.2 L (11.8-15.2) gm/dl Hct 34.4 L (35.5-45.6) % MCV 82 L (84-94) fl MCH 27 L (28-32) pg MCHC 32 (32-34) % RDW 17.1 H (13.2-15.2) % Plt Count 75 L (140-440) K/mm3 Lymph % (Auto) Applications Project Manager [place] % (Auto) Applications Project Manager Eos % (Auto) Applications Project Manager Baso % (Auto) Applications Project Manager Lymph # Applications Project Manager [place] # Applications Project Manager Eos # Applications Project Manager Baso # Applications Project Manager Add Manual Diff Complete Total Counted 100 Seg Neutrophils % Applications Project Manager Seg Neuts % (Manual) 76.0 H (40.0-70.0) % Band Neutrophils % 2.0 % Lymphocytes % (Manual) 12.0 L (13.4-35.0) % Reactive Lymphs % (Man) 0 % Monocytes % (Manual) 7.0 (0.0-7.3) % Eosinophils % (Manual) 3.0 (0.0-4.3) % Basophils % (Manual) 0 (0.0-1.8) % Metamyelocytes % 0 % Myelocytes % 0 % Promyelocytes % 0 % Blast Cells % 0 % Nucleated RBC % Not Reportable Seg Neutrophils # Applications Project Manager Seg Neutrophils # Man 1.9 (1.8-7.7) K/mm3 Band Neutrophils # 0.1 K/mm3 Lymphocytes # (Manual) 0.3 L (1.2-5.4) K/mm3 Abs React Lymphs (Man) 0.0 K/mm3 Monocytes # (Manual) 0.2 (0.0-0.8) K/mm3 Eosinophils # (Manual) 0.1 (0.0-0.4) K/mm3 Basophils # (Manual) 0.0 (0.0-0.1) K/mm3 Metamyelocytes # 0.0 K/mm3 Myelocytes # 0.0 K/mm3 Promyelocytes # 0.0 K/mm3 Blast Cells # 0.0 K/mm3 WBC Morphology Not Reportable Hypersegmented Neuts Not Reportable Hyposegmented Neuts Not Reportable Hypogranular Neuts Not Reportable Smudge Cells Not Reportable Toxic Granulation Not Reportable Toxic Vacuolation Not Reportable Dohle Bodies Not Reportable Pelger-Huet Anomaly Not Reportable Dana Rods Not Reportable Platelet Estimate Appears decreased Clumped Platelets Not Reportable Plt Clumps, EDTA Not Reportable Large Platelets Not Reportable Giant Platelets Not Reportable Platelet Satelliting Not Reportable Plt Morphology Comment Not Reportable RBC Morphology Not Reportable Dimorphic RBCs Not Reportable Polychromasia 1+ Hypochromasia Not Reportable Poikilocytosis Not Reportable Anisocytosis 1+ Microcytosis Not Reportable Macrocytosis Not Reportable Spherocytes Not Reportable Pappenheimer Bodies Not Reportable Sickle Cells Not Reportable Target Cells Not Reportable Tear Drop Cells Few Ovalocytes 1+ Helmet Cells Not Reportable Tafoya-Trilla Bodies Not Reportable [place] Rings Not Reportable [place] Cells Not Reportable Bite Cells Not Reportable Crenated Cell Not Reportable Elliptocytes 1+ Acanthocytes (Spur) Few Rouleaux Not Reportable Hemoglobin C Crystals Not Reportable Schistocytes Not Reportable Malaria parasites Not Reportable [place] Bodies Not Reportable Hem Pathologist Commnt No Sodium 144 (137-145) mmol/L Potassium 3.4 L (3.6-5.0) mmol/L Chloride 107.4 H (98-107) mmol/L Carbon Dioxide 18 L (22-30) mmol/L Anion Gap 22 mmol/L BUN 29 H (9-20) mg/dL Creatinine 2.6 H (0.8-1.5) mg/dL Estimated GFR 28 ml/min BUN/Creatinine Ratio 11 % Glucose 110 H (75-100) mg/dL Lactic Acid 3.50 H* (0.7-2.0) mmol/L Calcium 9.1 (8.4-10.2) mg/dL Magnesium 2.30 (1.7-2.3) mg/dL Total Bilirubin 0.80 (0.1-1.2) mg/dL AST 31 (5-40) units/L ALT 8 (7-56) units/L Alkaline Phosphatase 45 (35-129) units/L Total Protein 8.2 (6.3-8.2) g/dL Albumin 4.0 (3.9-5) g/dL Albumin/Globulin Ratio 1.0 % TSH (0.270-4.200) mlU/mL Urine Color (Yellow) Urine Turbidity (Clear) Urine pH (5.0-7.0) Ur Specific [place] (1.003-1.030) Urine Protein (Negative) mg/dL Urine Glucose (UA) (Negative) mg/dL Urine Ketones (Negative) mg/dL Urine Blood (Negative) Urine Nitrite (Negative) Urine Bilirubin (Negative) Urine Urobilinogen (<2.0) mg/dL Ur Leukocyte Esterase (Negative) Urine WBC (Auto) (0.0-6.0) /HPF Urine RBC (Auto) (0.0-6.0) /HPF Hyaline Casts /LPF Urine Mucus /HPF Salicylates (2.8-20.0) mg/dL Acetaminophen (10.0-30.0) ug/mL Plasma/Serum Alcohol (0-0.07) gm% 09/19/17 09/19/17 09/19/17 Range/Units 11:37 11:37 11:37 WBC (4.5-11.0) K/mm3 RBC (3.65-5.03) M/mm3 Hgb (11.8-15.2) gm/dl Hct (35.5-45.6) % MCV (84-94) fl MCH (28-32) pg MCHC (32-34) % RDW (13.2-15.2) % Plt Count (140-440) K/mm3 Lymph % (Auto) [place] % (Auto) Eos % (Auto) Baso % (Auto) Lymph # [place] # Eos # Baso # Add Manual Diff Total Counted Seg Neutrophils % Seg Neuts % (Manual) (40.0-70.0) % Band Neutrophils % % Lymphocytes % (Manual) (13.4-35.0) % Reactive Lymphs % (Man) % Monocytes % (Manual) (0.0-7.3) % Eosinophils % (Manual) (0.0-4.3) % Basophils % (Manual) (0.0-1.8) % Metamyelocytes % % Myelocytes % % Promyelocytes % % Blast Cells % % Nucleated RBC % Seg Neutrophils # Seg Neutrophils # Man (1.8-7.7) K/mm3 Band Neutrophils # K/mm3 Lymphocytes # (Manual) (1.2-5.4) K/mm3 Abs React Lymphs (Man) K/mm3 Monocytes # (Manual) (0.0-0.8) K/mm3 Eosinophils # (Manual) (0.0-0.4) K/mm3 Basophils # (Manual) (0.0-0.1) K/mm3 Metamyelocytes # K/mm3 Myelocytes # K/mm3 Promyelocytes # K/mm3 Blast Cells # K/mm3 WBC Morphology Hypersegmented Neuts Hyposegmented Neuts Hypogranular Neuts Smudge Cells Toxic Granulation Toxic Vacuolation Dohle Bodies Pelger-Huet Anomaly Daan Rods Platelet Estimate Clumped Platelets Plt Clumps, EDTA Large Platelets Giant Platelets Platelet Satelliting Plt Morphology Comment RBC Morphology Dimorphic RBCs Polychromasia Hypochromasia Poikilocytosis Anisocytosis Microcytosis Macrocytosis Spherocytes Pappenheimer Bodies Sickle Cells Target Cells Tear Drop Cells Ovalocytes Helmet Cells Tafoya-Trilla Bodies [place] Rings [place] Cells Bite Cells Crenated Cell Elliptocytes Acanthocytes (Spur) Rouleaux Hemoglobin C Crystals Schistocytes Malaria parasites [place] Bodies Hem Pathologist Commnt Sodium (137-145) mmol/L Potassium (3.6-5.0) mmol/L Chloride (98-107) mmol/L Carbon Dioxide (22-30) mmol/L Anion Gap mmol/L BUN (9-20) mg/dL Creatinine (0.8-1.5) mg/dL Estimated GFR ml/min BUN/Creatinine Ratio % Glucose (75-100) mg/dL Lactic Acid (0.7-2.0) mmol/L Calcium (8.4-10.2) mg/dL Magnesium (1.7-2.3) mg/dL Total Bilirubin (0.1-1.2) mg/dL AST (5-40) units/L ALT (7-56) units/L Alkaline Phosphatase (35-129) units/L Total Protein (6.3-8.2) g/dL Albumin (3.9-5) g/dL Albumin/Globulin Ratio % TSH 4.050 (0.270-4.200) mlU/mL Urine Color (Yellow) Urine Turbidity (Clear) Urine pH (5.0-7.0) Ur Specific [place] (1.003-1.030) Urine Protein (Negative) mg/dL Urine Glucose (UA) (Negative) mg/dL Urine Ketones (Negative) mg/dL Urine Blood (Negative) Urine Nitrite (Negative) Urine Bilirubin (Negative) Urine Urobilinogen (<2.0) mg/dL Ur Leukocyte Esterase (Negative) Urine WBC (Auto) (0.0-6.0) /HPF Urine RBC (Auto) (0.0-6.0) /HPF Hyaline Casts /LPF Urine Mucus /HPF Salicylates < 0.3 L (2.8-20.0) mg/dL Acetaminophen < 15.0 (10.0-30.0) ug/mL Plasma/Serum Alcohol (0-0.07) gm% 09/19/17 09/19/17 09/19/17 Range/Units 11:37 12:40 14:02 WBC (4.5-11.0) K/mm3 RBC (3.65-5.03) M/mm3 Hgb (11.8-15.2) gm/dl Hct (35.5-45.6) % MCV (84-94) fl MCH (28-32) pg MCHC (32-34) % RDW (13.2-15.2) % Plt Count (140-440) K/mm3 Lymph % (Auto) [place] % (Auto) Eos % (Auto) Baso % (Auto) Lymph # [place] # Eos # Baso # Add Manual Diff Total Counted Seg Neutrophils % Seg Neuts % (Manual) (40.0-70.0) % Band Neutrophils % % Lymphocytes % (Manual) (13.4-35.0) % Reactive Lymphs % (Man) % Monocytes % (Manual) (0.0-7.3) % Eosinophils % (Manual) (0.0-4.3) % Basophils % (Manual) (0.0-1.8) % Metamyelocytes % % Myelocytes % % Promyelocytes % % Blast Cells % % Nucleated RBC % Seg Neutrophils # Seg Neutrophils # Man (1.8-7.7) K/mm3 Band Neutrophils # K/mm3 Lymphocytes # (Manual) (1.2-5.4) K/mm3 Abs React Lymphs (Man) K/mm3 Monocytes # (Manual) (0.0-0.8) K/mm3 Eosinophils # (Manual) (0.0-0.4) K/mm3 Basophils # (Manual) (0.0-0.1) K/mm3 Metamyelocytes # K/mm3 Myelocytes # K/mm3 Promyelocytes # K/mm3 Blast Cells # K/mm3 WBC Morphology Hypersegmented Neuts Hyposegmented Neuts Hypogranular Neuts Smudge Cells Toxic Granulation Toxic Vacuolation Dohle Bodies Pelger-Huet Anomaly Dana Rods Platelet Estimate Clumped Platelets Plt Clumps, EDTA Large Platelets Giant Platelets Platelet Satelliting Plt Morphology Comment RBC Morphology Dimorphic RBCs Polychromasia Hypochromasia Poikilocytosis Anisocytosis Microcytosis Macrocytosis Spherocytes Pappenheimer Bodies Sickle Cells Target Cells Tear Drop Cells Ovalocytes Helmet Cells Tafoya-Trilla Bodies [place] Rings Rhianna Cells Bite Cells Crenated Cell Elliptocytes Acanthocytes (Spur) Rouleaux Hemoglobin C Crystals Schistocytes Malaria parasites [place] Bodies Hem Pathologist Commnt Sodium (137-145) mmol/L Potassium (3.6-5.0) mmol/L Chloride (98-107) mmol/L Carbon Dioxide (22-30) mmol/L Anion Gap mmol/L BUN (9-20) mg/dL Creatinine (0.8-1.5) mg/dL Estimated GFR ml/min BUN/Creatinine Ratio % Glucose (75-100) mg/dL Lactic Acid 0.80 (0.7-2.0) mmol/L Calcium (8.4-10.2) mg/dL Magnesium (1.7-2.3) mg/dL Total Bilirubin (0.1-1.2) mg/dL AST (5-40) units/L ALT (7-56) units/L Alkaline Phosphatase (35-129) units/L Total Protein (6.3-8.2) g/dL Albumin (3.9-5) g/dL Albumin/Globulin Ratio % TSH (0.270-4.200) mlU/mL Urine Color Straw (Yellow) Urine Turbidity Clear (Clear) Urine pH 7.0 (5.0-7.0) Ur Specific [place] 1.011 (1.003-1.030) Urine Protein 100 mg/dl (Negative) mg/dL Urine Glucose (UA) Neg (Negative) mg/dL Urine Ketones Neg (Negative) mg/dL Urine Blood Mod (Negative) Urine Nitrite Neg (Negative) Urine Bilirubin Neg (Negative) Urine Urobilinogen < 2.0 (<2.0) mg/dL Ur Leukocyte Esterase Neg (Negative) Urine WBC (Auto) 1.0 (0.0-6.0) /HPF Urine RBC (Auto) < 1.0 (0.0-6.0) /HPF Hyaline Casts 3 /LPF Urine Mucus Few /HPF Salicylates (2.8-20.0) mg/dL Acetaminophen (10.0-30.0) ug/mL Plasma/Serum Alcohol < 0.01 (0-0.07) gm% - EKG Data -: EKG Interpreted by La EKG shows normal: sinus rhythm Rate: tachycardia Interpretation: no acute changes - Radiology Data Radiology results: report reviewed Referring Physician: LILIA ROSARIO Patient Name: STELLA GODINEZ Date of : 1980 Sex: Male Report Date: 2017-09-19 Report Status: Finalized Findings [facility], [place] [address] [place] [address] Cat Scan Report Signed Patient: STELLA GODINEZ MR#: [id number] : 1980 Acct:[id number] Age/Sex: 37 / M ADM Date: 09/19/17 Loc: ED Attending Dr: Ordering Physician: LILIA ROSARIO Date of Service: 09/19/17 Procedure(s): CT head/brain wo con Accession Number(s): [id number] cc: LILIA ROSARIO CT scan of head without IV contrast: History: Headache, elevated blood pressure. Blurred vision. Findings: Ventricles are normal in size and midline in location. No evidence of acute ischemia, hemorrhage or mass. No extra axial fluid collection. Normal brainstem and cerebellum. Mucosal thickening of maxillary and ethmoid sinuses. Impression: No acute intracranial abnormality. Sinus disease. Transcribed By: PTP Dictated By: SHANIA BLANKENSHIP MD Electronically Authenticated By: SHANIA BLANKENSHIP MD Signed Date/Time: 09/19/17 1200 DD/ 1159 TD/TT: 09/19/17 1200 - Medical Decision Making Discussed with Dr. Hsu, informed him about the patient, he agreed to admit the patient to his service. Critical Care Time: Yes Critical care time in (mins) excluding proc time.: 35 Critical care attestation.: If time is entered above; I have spent that time in minutes in the direct care of this critically ill patient, excluding procedure time. ED Disposition Clinical Impression: Altered mental status, Hypertensive emergency, Seizure Disposition: 09 OP ADMIT IP TO THIS HOSP Is pt being admited?: Yes Condition: Stable Instructions: Hypertension (ED) Referrals: RONEY ALBERT MD [Primary Care Provider] - 3-5 Days
[2017-09-19 12:11] LABS: Hematocrit 34.4 % (35.5-45.6); Hemoglobin 11.2 gm/dl (11.8-15.2); Mean Corpuscular HGB Conc 32 % (32-34); Mean Corpuscular Hemoglobin 27 pg (28-32); Mean Corpuscular Volume 82 fl (84-94); Red Blood Count 4.18 M/mm3 (3.65-5.03); Red Cell Distribution Width 17.1 % (13.2-15.2); White Blood Count 2.5 K/mm3 (4.5-11.0)
[2017-09-19 12:14] LABS: Platelet Count 75 K/mm3 (140-440)
[2017-09-19 12:16] LABS: Bilirubin,Total 0.8 mg/dL (0.1-1.2); Calcium 9.1 mg/dL (8.4-10.2); Chloride 107.4 mmol/L (98-107); Magnesium 2.3 mg/dL (1.7-2.3); Potassium 3.4 mmol/L (3.6-5.0); Total Protein 8.2 g/dL (6.3-8.2)
--- NOTE | 2017-09-19 12:17 | Cat Scan Report ---
CT scan of head without IV contrast: History: Headache, elevated blood pressure. Blurred vision. Findings: Ventricles are normal in size and midline in location. No evidence of acute ischemia, hemorrhage or mass. No extra axial fluid collection. Normal brainstem and cerebellum. Mucosal thickening of maxillary and ethmoid sinuses. Impression: No acute intracranial abnormality. Sinus disease.
[2017-09-19] MEDS ORDERED: APRESOLINE ONE (12:52)
[2017-09-19] MEDS ORDERED: APRESOLINE IV ONE (12:52)
[2017-09-19 13:17] LABS: Anisocytosis 1+; Basophils % (Manual) 0 % (0.0-1.8); Blastocytes % (Manual) 0 %
[2017-09-19 13:18] LABS: Acanthocytes Few; Diff Status Complete; Elliptocytes 1+; Ovalocytes 1+; Platelet Estimate Appears Decreased; Polychromasia 1+; Tear Drop Cells Few
[2017-09-19] MEDS ORDERED: NITROSTAT SL ONE ×2 (13:47→13:54)
[2017-09-19] MEDS ORDERED: ATIVAN ONE (14:16)
[2017-09-19] MEDS ORDERED: ATIVAN IV ONE ×3 (14:17→15:32)
[2017-09-19] MEDS ORDERED: KEPPRA 1,000 MG/NS 0.75% 100ML 1,000 MG/100 ML BAG IV ONE ×2 (14:20→14:21)
[2017-09-19 14:37] LABS: Bilirubin,Urine NEG (Negative); Blood,Urine MOD (Negative); Ketones,Urine NEG (Negative); Leukocyte Esterase,Urine NEG (Negative); Mucus,Urine FEW /HPF; Nitrite,Urine NEG (Negative); RBC,Urine < 1.0 /HPF (0.0-6.0); Urobilinogen,Urine < 2.0 mg/dL (<2.0)
[2017-09-19] MEDS ORDERED: VERSED IV ONE (15:04)
--- NOTE | 2017-09-19 15:27 | Cat Scan Report ---
CT scan of head without IV contrast: History: High blood pressure and seizure. Findings: Ventricles are normal in size and midline in location. No evidence of acute ischemia, hemorrhage or mass. No extra-axial fluid collection. Normal brainstem and cerebellum. Mucosal thickening of sinuses. Normal mastoid air cells. Impression: No acute intracranial abnormality. Sinus disease.
[2017-09-19] MEDS: CARDENE 50 MG in NACL 0.9% 250ML 230 ML IV SCH (15:32)
[2017-09-19] MEDS ORDERED: VERSED IV NR (16:00)
[2017-09-19 16:16] LABS: Urine Drugs of Abuse Note Disclamer
--- NOTE | 2017-09-19 21:35 | History and Physical Report ---
History of Present Illness Date of examination: 09/19/17 Date of admission: 09/19/17 15:08 Chief complaint: chief complaint: altered sensorium since afternoon. History of present illness: History of present illness:37-year-old -Citizen Of [place] male with past medical history of hypertension DYE and chronic kidney disease and seizures comes in for altered sensorium. Patient apparently passed out for a few minutes. Patient used marijuana this a.m. Patient has not been taking blood pressure medications for a long timei.no seizures. No fever no chills. Slight shortness of breath present. No chest pain. Feels lightheaded. Shortness of breath on minimal exertion present. Review of System: Constitutional: no fever, no chills, no weight loss Ears, eyes, nose, mouth and throat: no nasal congestion, no nasal discharge, no sinus pressure, no vision change, no red eye. Neck: No neck pain or rigidity. Cardiovascular: No chest pain, no orthopnea, no palpitations, no leg swelling Respiratory: No shortness of breath, no cough, no congestion, no wheezing Gastrointestinal: no abdominal pain, no nausea, no vomiting Genitourinary : no dysuria, no hematuria Musculoskeletal: no joint swelling or muscle ache Integumentary: no rash, no pruritis Neurological: no parathesias, no numbness, no tingling Endocrine: no cold or heat intolerance, no polyuria or polydipsia Hematologic/Lymphatic: no easy bruising, no easy bleeding, no gland swelling Allergic/Immunologic: no urticaria, no angioedema. Past History Past Medical History: GERD, hypertension, renal failure, seizures, other (HIV) Past Surgical History: No surgical history Social history: smoking, alcohol abuse (marijuana abuse on a regular basis), full code Family history: hypertension Medications and Allergies Allergies Allergy/AdvReac Type Severity Reaction Status Date / Time No Known Allergies Allergy Unverified 04/10/17 15:20 Home Medications Medication Instructions Recorded Confirmed Last Taken Type ISOSORBIDE MONOnitrate [Imdur ER] 30 mg PO QDAY #30 tablet 06/08/17 09/19/17 Unknown Rx NIFEdipine XL [Procardia Xl] 90 mg PO QDAY #30 tablet 06/08/17 09/19/17 Unknown Rx Active Meds: Active Medications Nicardipine HCl 50 mg/ Sodium (Chloride) 250 mls @ 25 mls/hr IV TITR ROSIE; 5 MG/ HR PRN Reason: Protocol Last Titration: 09/19/17 18:25 Dose: 15 mg/hr, 75 mls/hr Midazolam HCl (Versed) 2 mg IV ONCE NR Stop: 09/19/17 23:00 Last Admin: 09/19/17 15:32 Dose: 2 mg Review of Systems All systems: negative Constitutional: no weight loss, no weight gain, no fever, no chills, no sweats, no night sweats Exam - Constitutional Vitals: Temp Pulse Resp BP Pulse Ox 98.6 F 106 H 34 H 145/83 95 09/19/17 18:34 09/19/17 20:30 09/19/17 20:30 09/19/17 20:30 09/19/17 20:30 General appearance: Present: no acute distress, well-nourished - EENT Eyes: Present: PERRL ENT: hearing intact, clear oral mucosa - Neck Neck: Present: supple, normal ROM - Respiratory Respiratory effort: normal Respiratory: bilateral: CTA - Cardiovascular Heart rate: 80 Rhythm: regular Heart Sounds: Present: S1 & S2. Absent: rub, click - Extremities Extremities: no ischemia, pulses intact, pulses symmetrical, No edema Peripheral Pulses: within normal limits - Abdominal General gastrointestinal: Present: soft, non-tender, non-distended, normal bowel sounds Male genitourinary: Present: normal - Rectal Rectal Exam: deferred - Integumentary Integumentary: Present: clear, warm, dry - Musculoskeletal Musculoskeletal: gait normal, strength equal bilaterally - Psychiatric Psychiatric: appropriate mood/affect, intact judgment & insight - Neurologic Neurologic: CNII-XII intact, moves all extremities - Allied Health Allied health notes reviewed: nursing, case management Results - Labs CBC & Chem 7: 09/19/17 11:37 09/19/17 11:37 Labs: Laboratory Last Values WBC 2.5 K/mm3 (4.5-11.0) L 09/19/17 11:37 RBC 4.18 M/mm3 (3.65-5.03) 09/19/17 11:37 Hgb 11.2 gm/dl (11.8-15.2) L 09/19/17 11:37 Hct 34.4 % (35.5-45.6) L 09/19/17 11:37 MCV 82 fl (84-94) L 09/19/17 11:37 MCH 27 pg (28-32) L 09/19/17 11:37 MCHC 32 % (32-34) 09/19/17 11:37 RDW 17.1 % (13.2-15.2) H 09/19/17 11:37 Plt Count 75 K/mm3 (140-440) L 09/19/17 11:37 Lymph % (Auto) [place] 09/19/17 11:37 Rock % (Auto) [place] 09/19/17 11:37 Eos % (Auto) [place] 09/19/17 11:37 Baso % (Auto) [place] 09/19/17 11:37 Lymph # [place] 09/19/17 11:37 Rock # [place] 09/19/17 11:37 Eos # [place] 09/19/17 11:37 Baso # [place] 09/19/17 11:37 Add Manual Diff Complete 09/19/17 11:37 Total Counted 100 09/19/17 11:37 Seg Neutrophils % [place] 09/19/17 11:37 Seg Neuts % (Manual) 76.0 % (40.0-70.0) H 09/19/17 11:37 Band Neutrophils % 2.0 % 09/19/17 11:37 Lymphocytes % (Manual) 12.0 % (13.4-35.0) L 09/19/17 11:37 Reactive Lymphs % (Man) 0 % 09/19/17 11:37 Monocytes % (Manual) 7.0 % (0.0-7.3) 09/19/17 11:37 Eosinophils % (Manual) 3.0 % (0.0-4.3) 09/19/17 11:37 Basophils % (Manual) 0 % (0.0-1.8) 09/19/17 11:37 Metamyelocytes % 0 % 09/19/17 11:37 Myelocytes % 0 % 09/19/17 11:37 Promyelocytes % 0 % 09/19/17 11:37 Blast Cells % 0 % 09/19/17 11:37 Nucleated RBC % Not Reportable 09/19/17 11:37 Seg Neutrophils # [place] 09/19/17 11:37 Seg Neutrophils # Man 1.9 K/mm3 (1.8-7.7) 09/19/17 11:37 Band Neutrophils # 0.1 K/mm3 09/19/17 11:37 Lymphocytes # (Manual) 0.3 K/mm3 (1.2-5.4) L 09/19/17 11:37 Abs React Lymphs (Man) 0.0 K/mm3 09/19/17 11:37 Monocytes # (Manual) 0.2 K/mm3 (0.0-0.8) 09/19/17 11:37 Eosinophils # (Manual) 0.1 K/mm3 (0.0-0.4) 09/19/17 11:37 Basophils # (Manual) 0.0 K/mm3 (0.0-0.1) 09/19/17 11:37 Metamyelocytes # 0.0 K/mm3 09/19/17 11:37 Myelocytes # 0.0 K/mm3 09/19/17 11:37 Promyelocytes # 0.0 K/mm3 09/19/17 11:37 Blast Cells # 0.0 K/mm3 09/19/17 11:37 WBC Morphology Not Reportable 09/19/17 11:37 Hypersegmented Neuts Not Reportable 09/19/17 11:37 Hyposegmented Neuts Not Reportable 09/19/17 11:37 Hypogranular Neuts Not Reportable 09/19/17 11:37 Smudge Cells Not Reportable 09/19/17 11:37 Toxic Granulation Not Reportable 09/19/17 11:37 Toxic Vacuolation Not Reportable 09/19/17 11:37 Dohle Bodies Not Reportable 09/19/17 11:37 Pelger-Huet Anomaly Not Reportable 09/19/17 11:37 Dana Rods Not Reportable 09/19/17 11:37 Platelet Estimate Appears decreased 09/19/17 11:37 Clumped Platelets Not Reportable 09/19/17 11:37 Plt Clumps, EDTA Not Reportable 09/19/17 11:37 Large Platelets Not Reportable 09/19/17 11:37 Giant Platelets Not Reportable 09/19/17 11:37 Platelet Satelliting Not Reportable 09/19/17 11:37 Plt Morphology Comment Not Reportable 09/19/17 11:37 RBC Morphology Not Reportable 09/19/17 11:37 Dimorphic RBCs Not Reportable 09/19/17 11:37 Polychromasia 1+ 09/19/17 11:37 Hypochromasia Not Reportable 09/19/17 11:37 Poikilocytosis Not Reportable 09/19/17 11:37 Anisocytosis 1+ 09/19/17 11:37 Microcytosis Not Reportable 09/19/17 11:37 Macrocytosis Not Reportable 09/19/17 11:37 Spherocytes Not Reportable 09/19/17 11:37 Pappenheimer Bodies Not Reportable 09/19/17 11:37 Sickle Cells Not Reportable 09/19/17 11:37 Target Cells Not Reportable 09/19/17 11:37 Tear Drop Cells Few 09/19/17 11:37 Ovalocytes 1+ 09/19/17 11:37 Helmet Cells Not Reportable 09/19/17 11:37 Tafoya-Mason Neck Bodies Not Reportable 09/19/17 11:37 [place] Rings Not Reportable 09/19/17 11:37 Rhianna Cells Not Reportable 09/19/17 11:37 Bite Cells Not Reportable 09/19/17 11:37 Crenated Cell Not Reportable 09/19/17 11:37 Elliptocytes 1+ 09/19/17 11:37 Acanthocytes (Spur) Few 09/19/17 11:37 Rouleaux Not Reportable 09/19/17 11:37 Hemoglobin C Crystals Not Reportable 09/19/17 11:37 Schistocytes Not Reportable 09/19/17 11:37 Malaria parasites Not Reportable 09/19/17 11:37 [place] Bodies Not Reportable 09/19/17 11:37 Hem Pathologist Commnt No 09/19/17 11:37 Sodium 144 mmol/L (137-145) 09/19/17 11:37 Potassium 3.4 mmol/L (3.6-5.0) L 09/19/17 11:37 Chloride 107.4 mmol/L (98-107) H 09/19/17 11:37 Carbon Dioxide 18 mmol/L (22-30) L 09/19/17 11:37 Anion Gap 22 mmol/L 09/19/17 11:37 BUN 29 mg/dL (9-20) H 09/19/17 11:37 Creatinine 2.6 mg/dL (0.8-1.5) H 09/19/17 11:37 Estimated GFR 28 ml/min 09/19/17 11:37 BUN/Creatinine Ratio 11 % 09/19/17 11:37 Glucose 110 mg/dL (75-100) H 09/19/17 11:37 Lactic Acid 0.80 mmol/L (0.7-2.0) 09/19/17 14:02 Calcium 9.1 mg/dL (8.4-10.2) 09/19/17 11:37 Magnesium 2.30 mg/dL (1.7-2.3) 09/19/17 11:37 Total Bilirubin 0.80 mg/dL (0.1-1.2) 09/19/17 11:37 AST 31 units/L (5-40) 09/19/17 11:37 ALT 8 units/L (7-56) 09/19/17 11:37 Alkaline Phosphatase 45 units/L (35-129) 09/19/17 11:37 Total Protein 8.2 g/dL (6.3-8.2) 09/19/17 11:37 Albumin 4.0 g/dL (3.9-5) 09/19/17 11:37 Albumin/Globulin Ratio 1.0 % 09/19/17 11:37 TSH 4.050 mlU/mL (0.270-4.200) 09/19/17 11:37 Urine Color Straw (Yellow) 09/19/17 12:40 Urine Turbidity Clear (Clear) 09/19/17 12:40 Urine pH 7.0 (5.0-7.0) 09/19/17 12:40 Ur Specific [place] 1.011 (1.003-1.030) 09/19/17 12:40 Urine Protein 100 mg/dl mg/dL (Negative) 09/19/17 12:40 Urine Glucose (UA) Neg mg/dL (Negative) 09/19/17 12:40 Urine Ketones Neg mg/dL (Negative) 09/19/17 12:40 Urine Blood Mod (Negative) 09/19/17 12:40 Urine Nitrite Neg (Negative) 09/19/17 12:40 Urine Bilirubin Neg (Negative) 09/19/17 12:40 Urine Urobilinogen < 2.0 mg/dL (<2.0) 09/19/17 12:40 Ur Leukocyte Esterase Neg (Negative) 09/19/17 12:40 Urine WBC (Auto) 1.0 /HPF (0.0-6.0) 09/19/17 12:40 Urine RBC (Auto) < 1.0 /HPF (0.0-6.0) 09/19/17 12:40 Hyaline Casts 3 /LPF 09/19/17 12:40 Urine Mucus Few /HPF 09/19/17 12:40 Salicylates < 0.3 mg/dL (2.8-20.0) L 09/19/17 11:37 Urine Opiates Screen Presumptive negative 09/19/17 12:40 Urine Methadone Screen Presumptive negative 09/19/17 12:40 Acetaminophen < 15.0 ug/mL (10.0-30.0) 09/19/17 11:37 Ur Barbiturates Screen Presumptive negative 09/19/17 12:40 Ur Phencyclidine Scrn Presumptive negative 09/19/17 12:40 Ur Amphetamines Screen Presumptive negative 09/19/17 12:40 U Benzodiazepines Scrn Presumptive negative 09/19/17 12:40 Urine Cocaine Screen Presumptive negative 09/19/17 12:40 U Marijuana (THC) Screen Presumptive positive 09/19/17 12:40 Drugs of Abuse Note Disclamer 09/19/17 12:40 Plasma/Serum Alcohol < 0.01 gm% (0-0.07) 09/19/17 11:37 - Imaging and Cardiology EKG: report reviewed (LVH by voltage criteria heart rate of 80/m) Chest x-ray: report reviewed CT Scan - head: report reviewed (no acute findings) Assessment and Plan Assessment and plan: The high probability OF a clinically significant sudden or life-threatening deterioration of the cardiorespiratory system and endocrine system required my full and direct attention, intervention and postoperative management. The aggregate medical care time was 40 minutes. The time is in addition to time spent performing reported procedures but includes the followin: Data review and interpretation 2: Patient assessment and monitoring of vital signs 3: Documentation 4:: Medication orders and management Advance Directives: Yes (full code) VTE prophylaxis?: Chemical Plan of care discussed with patient/family: Yes - Patient Problems (1) Hypertensive encephalopathy Current Visit: Yes Status: Acute Plan to address problem: patient is a blood pressure of 250/154 . Patient initiated on nicardipine drip. Patient also initiated on losartan 100 mg once a day Coreg 12.5 mg twice a day. Patient also initiated on hydralazine 50 mg by mouth every 8hrs. Patient to continue on nifedipine 90 mg every 24 hours. (2) Hypertensive emergency Current Visit: Yes Status: Acute Plan to address problem: Same as above (3) Seizure disorder Current Visit: Yes Status: Chronic Plan to address problem: patient initiated on Keppra (4) ARF (acute renal failure) with tubular necrosis Current Visit: No Status: Acute Plan to address problem: acute on chronic kidney disease. ATN is a possibility. Nephrology consulted. Dr. MOORE environmental health and safety leader.IV D5W for some time. (5) HIV (human immunodeficiency virus infection) Current Visit: Yes Status: Chronic Plan to address problem: patient to follow up with ID as out patient (6) Hypokalemia Current Visit: Yes Status: Acute Plan to address problem: supplemented (7) DVT prophylaxis Current Visit: Yes Status: Acute Plan to address problem: Lovenox 40 mg subcutaneous daily
[2017-09-19] MEDS ORDERED: DULCOLAX PR PRN ×2 (21:36→21:37)
[2017-09-19] MEDS ORDERED: MILK OF MAGNESIA PO PRN ×2 (21:36→21:37)
[2017-09-19] MEDS ORDERED: ZOFRAN IV PRN ×2 (21:36→21:37)
[2017-09-19] MEDS ORDERED: TYLENOL PO PRN ×2 (21:36→21:37)
[2017-09-19] MEDS ORDERED: MORPHINE IV PRN (21:37)
[2017-09-19] MEDS ORDERED: AMBIEN PO PRN (21:37)
[2017-09-19] MEDS ORDERED: PERCOCET 5/325 PO PRN (21:37)
[2017-09-19] MEDS ORDERED: PHENERGAN PR PRN (21:37)
[2017-09-19] MEDS ORDERED: K-DUR PO ONE (22:08)
[2017-09-20] MEDS: APRESOLINE PO SCH ×4 (00:08→21:12)
[2017-09-20] MEDS: COREG PO SCH ×3 (00:09→21:11)
[2017-09-20] MEDS: COZAAR PO SCH ×2 (00:10→09:44)
[2017-09-20] MEDS: IMDUR PO SCH ×2 (00:10→09:45)
[2017-09-20] MEDS: PEPCID IV SCH ×2 (00:10→09:44)
[2017-09-20] MEDS: KEPPRA PO SCH ×3 (00:11→21:11)
[2017-09-20] MEDS: PROCARDIA XL PO SCH ×2 (00:11→09:45)
[2017-09-20] MEDS: CARDENE 50 MG in NACL 0.9% 250ML 230 ML IV SCH (02:06)
[2017-09-20 05:03] LABS: Albumin 4.1 g/dL (3.9-5); Albumin/Globulin Ratio 1.1 %; Bilirubin,Total 0.9 mg/dL (0.1-1.2); Calcium 9.3 mg/dL (8.4-10.2); Chloride 112.7 mmol/L (98-107); Total Protein 7.7 g/dL (6.3-8.2)
[2017-09-20 05:22] LABS: Hematocrit 34.2 % (35.5-45.6); Hemoglobin 11.4 gm/dl (11.8-15.2); Mean Corpuscular HGB Conc 33 % (32-34); Mean Corpuscular Hemoglobin 27 pg (28-32); Mean Corpuscular Volume 82 fl (84-94); Platelet Count 72 K/mm3 (140-440); Red Blood Count 4.18 M/mm3 (3.65-5.03); Red Cell Distribution Width 17.3 % (13.2-15.2); White Blood Count 4.2 K/mm3 (4.5-11.0)
[2017-09-20 05:32] LABS: Acanthocytes 1+; Anisocytosis 1+; Basophils % (Manual) 0 % (0.0-1.8); Blastocytes % (Manual) 0 %; Eosinophils % (Manual) 0 % (0.0-4.3); Helmet Cells 1+; Tear Drop Cells Few
[2017-09-20 05:33] LABS: Diff Status Complete; Elliptocytes 1+; Ovalocytes 1+; Platelet Estimate Appears Decreased
--- NOTE | 2017-09-20 09:03 | Consultation ---
History of Present Illness - Reason for Consult Consult date: 09/20/17 chronic renal failure, proteinuria - History of Present Illness Patient is a 37 years old AAM with history significant for Hypertension, CKD stage 3 and Proteinuria who was brought into the ER for evaluation of altered mental status. He stated that he passed out for few minutes. His initial BP was 214/152. He is not sure about his meds at home. Per patient he was diagnosed with HTN few months ago. During prior hospital visit his creatinine level was always above 4. This admission his initial creatinine was 2.6. BP is better now. Patient denied any headache, weakness, fever, N, V, dizziness or syncope. Past History Past Medical History: GERD, hypertension, renal failure, seizures, other (HIV) Past Surgical History: No surgical history Social history: smoking, alcohol abuse (marijuana abuse on a regular basis), full code Family history: hypertension Medications and Allergies Allergies Allergy/AdvReac Type Severity Reaction Status Date / Time No Known Allergies Allergy Unverified 04/10/17 15:20 Home Medications Medication Instructions Recorded Confirmed Last Taken Type ISOSORBIDE MONOnitrate [Imdur ER] 30 mg PO QDAY #30 tablet 06/08/17 09/19/17 Unknown Rx NIFEdipine XL [Procardia Xl] 90 mg PO QDAY #30 tablet 06/08/17 09/19/17 Unknown Rx Active Meds: Active Medications Acetaminophen (Tylenol) 650 mg PO Q4H PRN PRN Reason: Pain MILD(1-3)/Fever >100.5/DYE Bisacodyl (Dulcolax) 10 mg [place] QDAY PRN PRN Reason: Constipation unrelieved by MOM Carvedilol (Coreg) 12.5 mg PO BID [facility] Last Admin: 09/20/17 00:09 Dose: 12.5 mg Famotidine (Pepcid) 20 mg IV BID ROSIE Last Admin: 09/20/17 00:10 Dose: 20 mg Hydralazine HCl (Apresoline) 50 mg PO Q8HR [facility] Last Admin: 09/20/17 06:17 Dose: 50 mg Nicardipine HCl 50 mg/ Sodium (Chloride) 250 mls @ 25 mls/hr IV TITR ROSIE; 5 MG/ HR PRN Reason: Protocol Last Titration: 09/20/17 03:20 Dose: 0 mg/hr, 0 mls/hr Isosorbide Mononitrate (Imdur) 30 mg PO QDAY [facility] Last Admin: 09/20/17 00:10 Dose: 30 mg Levetiracetam (Keppra) 750 mg PO Q12HR [facility] Last Admin: 09/20/17 00:11 Dose: 750 mg Losartan Potassium (Cozaar) 100 mg PO QDAY [facility] Last Admin: 09/20/17 00:10 Dose: 100 mg Magnesium Hydroxide (Milk Of Magnesia) 30 ml PO Q4H PRN PRN Reason: Constipation Morphine Sulfate (Morphine) 2 mg IV Q4H PRN PRN Reason: Pain, Moderate (4-6) Nifedipine (Procardia Xl) 90 mg PO QDAY [facility] Last Admin: 09/20/17 00:11 Dose: 90 mg Ondansetron HCl (Zofran) 4 mg IV Q8H PRN PRN Reason: N/V unrelieved by Reglan Oxycodone/Acetaminophen (Percocet 5/325) 1 tab PO Q6H PRN PRN Reason: Pain, Moderate (4-6) Promethazine HCl (Phenergan) 25 mg WA Q6H PRN PRN Reason: N/V IF NPO AND NO IV ACCESS Zolpidem Tartrate (Ambien) 5 mg PO QHS PRN PRN Reason: Insomnia Review of Systems Constitutional: no weight loss, no weight gain, no fever, no chills, no anorexia , no weakness Ears, nose, mouth and throat: no epistaxis Cardiovascular: high blood pressure, no chest pain, no orthopnea, no palpitations, no syncope, no lightheadedness, no shortness of breath, no leg edema Respiratory: no cough, no hemoptysis, no shortness of breath, no dyspnea on exertion Gastrointestinal: no abdominal pain, no nausea, no vomiting, no diarrhea, no BRBPR, no melena, no jaundice Genitourinary Male: no dysuria, no hematuria Rectal: no bleeding Musculoskeletal: no redness of joints, no hot joints Integumentary: no rash, no wounds, no jaundice Neurological: syncope, change in mentation, confusion, no paralysis, no weakness , no headaches, no aphasia, no change in speech, no double vision, no loss of vision Psychiatric: no disorientation Endocrine: no weight change Hematologic/Lymphatic: no easy bleeding Exam - Vital Signs Vital signs: Vital Signs Resp 29 H 09/19/17 11:11 - General Appearance General appearance: well-developed, well-nourished, appears stated age, other ( no distress) EENT: ATNC, PERRL, hearing intact, vision intact Neck: Present: neck supple, trachea midline Respiratory: Clear to Ascultation Heart: regular, S1S2, no murmurs Gastrointestinal: Present: normoactive bowel sounds. Absent: tenderness, distended Integumentary: no rash, warm and dry Neurologic: no focal deficit, no asterixis, alert and oriented x3, CN 3-12 intact Musculoskeletal: Present: other (no edema) Psychiatric: mood/affect appropriate, cooperative Results - Lab Results 09/20/17 04:26 09/20/17 04:26 Most recent lab results Calcium 9.3 mg/dL (8.4-10.2) 09/20/17 04:26 Magnesium 2.30 mg/dL (1.7-2.3) 09/19/17 11:37 - Image Kidney/bladder ultrasound: other Assessment and Plan 1. CKD stage 3: Likely secondary to combination of HIVAN and Hypertensive Nephropathy. Creatinine level is better since last visit. LUIS, ANCA and complements were negative. Monitor renal function. 2. Uncontrolled HTN: BP is well controlled now. Continue current meds. 3. Hypokalemia: Improved. 4. Proteinuria: Likely secondary to HIVAN. 5. HIV. 6. Encephalopathy.
--- NOTE | 2017-09-20 13:49 | Consultation ---
History of Present Illness Consult date: 09/20/17 Requesting physician: JEWELL QIU Reason for consult: other (Hypertensive Emergency) History of present illness: PULMONARY/CCM CONSULT NOTE Initially consulted for HTNsive emergency and need for ICU admission but has resolved. ...will see if needed prn during this admission Past History Past Medical History: GERD, hypertension, renal failure, seizures, other (HIV) Past Surgical History: No surgical history Social history: smoking, alcohol abuse (marijuana abuse on a regular basis), full code Family history: hypertension Medications and Allergies Allergies Allergy/AdvReac Type Severity Reaction Status Date / Time No Known Allergies Allergy Unverified 04/10/17 15:20 Home Medications Medication Instructions Recorded Confirmed Last Taken Type Carvedilol [Coreg] 25 mg PO BID #60 tablet 09/24/17 Unknown Rx ISOSORBIDE MONOnitrate [Imdur ER] 30 mg PO QDAY #30 tablet 09/24/17 Unknown Rx NIFEdipine XL [Procardia Xl] 90 mg PO QDAY #30 tablet 09/24/17 Unknown Rx Active Meds: Active Medications Acetaminophen (Tylenol) 650 mg PO Q4H PRN PRN Reason: Pain MILD(1-3)/Fever >100.5/DYE Bisacodyl (Dulcolax) 10 mg [place] QDAY PRN PRN Reason: Constipation unrelieved by MOM Carvedilol (Coreg) 12.5 mg PO BID [facility] Last Admin: 09/20/17 09:46 Dose: 12.5 mg Famotidine (Pepcid) 20 mg PO BID [facility] Hydralazine HCl (Apresoline) 50 mg PO Q8HR [facility] Last Admin: 09/20/17 06:17 Dose: 50 mg Isosorbide Mononitrate (Imdur) 30 mg PO QDAY [facility] Last Admin: 09/20/17 09:45 Dose: 30 mg Levetiracetam (Keppra) 750 mg PO Q12HR [facility] Last Admin: 09/20/17 09:43 Dose: 750 mg Losartan Potassium (Cozaar) 100 mg PO QDAY [facility] Last Admin: 09/20/17 09:44 Dose: 100 mg Magnesium Hydroxide (Milk Of Magnesia) 30 ml PO Q4H PRN PRN Reason: Constipation Morphine Sulfate (Morphine) 2 mg IV Q4H PRN PRN Reason: Pain, Moderate (4-6) Nifedipine (Procardia Xl) 90 mg PO QDAY [facility] Last Admin: 09/20/17 09:45 Dose: 90 mg Ondansetron HCl (Zofran) 4 mg IV Q8H PRN PRN Reason: N/V unrelieved by Reglan Oxycodone/Acetaminophen (Percocet 5/325) 1 tab PO Q6H PRN PRN Reason: Pain, Moderate (4-6) Promethazine HCl (Phenergan) 25 mg DE Q6H PRN PRN Reason: N/V IF NPO AND NO IV ACCESS Zolpidem Tartrate (Ambien) 5 mg PO QHS PRN PRN Reason: Insomnia Physical Examination Vital signs: Vital Signs Resp 29 H 09/19/17 11:11 Results - Laboratory Findings CBC and BMP: 09/23/17 06:25 09/24/17 06:41 Abnormal lab findings: Abnormal Labs 09/19/17 09/19/17 09/19/17 11:37 11:37 11:37 WBC 2.5 L Hgb 11.2 L Hct 34.4 L MCV 82 L MCH 27 L RDW 17.1 H Plt Count 75 L Seg Neuts % (Manual) 76.0 H Lymphocytes % (Manual) 12.0 L Lymphocytes # (Manual) 0.3 L Sodium Potassium 3.4 L Chloride 107.4 H Carbon Dioxide 18 L BUN 29 H Creatinine 2.6 H Glucose 110 H Lactic Acid 3.50 H* AST Salicylates 09/19/17 09/20/17 09/20/17 11:37 04:26 04:26 WBC 4.2 L Hgb 11.4 L Hct 34.2 L MCV 82 L MCH 27 L RDW 17.3 H Plt Count 72 L Seg Neuts % (Manual) 81.0 H Lymphocytes % (Manual) Lymphocytes # (Manual) 0.7 L Sodium 146 H Potassium Chloride 112.7 H Carbon Dioxide 19 L BUN 25 H Creatinine 2.7 H Glucose 107 H Lactic Acid AST 41 H Salicylates < 0.3 L
--- NOTE | 2017-09-20 18:10 | Progress Note ---
Assessment and Plan Assessment and plan: 37-year-old -[place] male with past medical history of hypertension DYE and chronic kidney disease and seizures comes in for altered sensorium. Patient apparently passed out for a few minutes. Patient used marijuana this a.m. Patient has not been taking blood pressure medications for a long time .no seizures. No fever no chills. Slight shortness of breath present. No chest pain. Hypertensive encephalopathy seizure disorder Acute kidney injury secondary to tubular necrosis Lactic acidosis eval for Rhabdomylysis HIV Hypokalemia THC abuse HTN urgency Proteinuria PLAN Supportive care continue iv hydration discontinue nephrotoxic meds nephology and pulmonary input noted continue current therapy cOUNSELLING ON SUBSTANCE ABUSE check cpk dvt/gi prophy seizure precautions History Interval history: Patient seen and examined, in no acute distress. lying comfortably in bed, denies any chest pain, nausea, vomiting Hospitalist Physical - Physical exam Narrative exam: General appearance: Present: no acute distress, well-nourished - EENT Eyes: Present: PERRL ENT: hearing intact, clear oral mucosa - Neck Neck: Present: supple, normal ROM - Respiratory Respiratory effort: normal Respiratory: bilateral: CTA - Cardiovascular Heart rate: 80 Rhythm: regular Heart Sounds: Present: S1 & S2. Absent: rub, click - Extremities Extremities: no ischemia, pulses intact, pulses symmetrical, No edema Peripheral Pulses: within normal limits - Abdominal General gastrointestinal: Present: soft, non-tender, non-distended, normal bowel sounds Male genitourinary: Present: normal - Rectal Rectal Exam: deferred - Integumentary Integumentary: Present: clear, warm, dry - Musculoskeletal Musculoskeletal: gait normal, strength equal bilaterally - Psychiatric Psychiatric: appropriate mood/affect, intact judgment & insight - Neurologic Neurologic: CNII-XII intact, moves all extremities - Allied Health Allied health notes reviewed: nursing, case management - Constitutional Vitals: Temp Pulse Resp BP Pulse Ox 99.6 F 110 H 18 148/78 99 09/20/17 06:00 09/20/17 09:46 09/20/17 10:00 09/20/17 09:46 09/20/17 08:12 General appearance: Present: no acute distress, well-nourished Results - Labs CBC & Chem 7: 09/20/17 04:26 09/21/17 05:46 Labs: Laboratory Last Values WBC 4.2 K/mm3 (4.5-11.0) L 09/20/17 04:26 RBC 4.18 M/mm3 (3.65-5.03) 09/20/17 04:26 Hgb 11.4 gm/dl (11.8-15.2) L 09/20/17 04:26 Hct 34.2 % (35.5-45.6) L 09/20/17 04:26 MCV 82 fl (84-94) L 09/20/17 04:26 MCH 27 pg (28-32) L 09/20/17 04:26 MCHC 33 % (32-34) 09/20/17 04:26 RDW 17.3 % (13.2-15.2) H 09/20/17 04:26 Plt Count 72 K/mm3 (140-440) L 09/20/17 04:26 Lymph % (Auto) [place] 09/19/17 11:37 [place] % (Auto) [place] 09/19/17 11:37 Eos % (Auto) [place] 09/19/17 11:37 Baso % (Auto) [place] 09/19/17 11:37 Lymph # [place] 09/19/17 11:37 [place] # [place] 09/19/17 11:37 Eos # [place] 09/19/17 11:37 Baso # [place] 09/19/17 11:37 Add Manual Diff Complete 09/20/17 04:26 Total Counted 100 09/20/17 04:26 Seg Neutrophils % [place] 09/19/17 11:37 Seg Neuts % (Manual) 81.0 % (40.0-70.0) H 09/20/17 04:26 Band Neutrophils % 0 % 09/20/17 04:26 Lymphocytes % (Manual) 16.0 % (13.4-35.0) 09/20/17 04:26 Reactive Lymphs % (Man) 0 % 09/20/17 04:26 Monocytes % (Manual) 3.0 % (0.0-7.3) 09/20/17 04:26 Eosinophils % (Manual) 0 % (0.0-4.3) 09/20/17 04:26 Basophils % (Manual) 0 % (0.0-1.8) 09/20/17 04:26 Metamyelocytes % 0 % 09/20/17 04:26 Myelocytes % 0 % 09/20/17 04:26 Promyelocytes % 0 % 09/20/17 04:26 Blast Cells % 0 % 09/20/17 04:26 Nucleated RBC % Not Reportable 09/20/17 04:26 Seg Neutrophils # [place] 09/19/17 11:37 Seg Neutrophils # Man 3.4 K/mm3 (1.8-7.7) 09/20/17 04:26 Band Neutrophils # 0.0 K/mm3 09/20/17 04:26 Lymphocytes # (Manual) 0.7 K/mm3 (1.2-5.4) L 09/20/17 04:26 Abs React Lymphs (Man) 0.0 K/mm3 09/20/17 04:26 Monocytes # (Manual) 0.1 K/mm3 (0.0-0.8) 09/20/17 04:26 Eosinophils # (Manual) 0.0 K/mm3 (0.0-0.4) 09/20/17 04:26 Basophils # (Manual) 0.0 K/mm3 (0.0-0.1) 09/20/17 04:26 Metamyelocytes # 0.0 K/mm3 09/20/17 04:26 Myelocytes # 0.0 K/mm3 09/20/17 04:26 Promyelocytes # 0.0 K/mm3 09/20/17 04:26 Blast Cells # 0.0 K/mm3 09/20/17 04:26 WBC Morphology Not Reportable 09/20/17 04:26 Hypersegmented Neuts Not Reportable 09/20/17 04:26 Hyposegmented Neuts Not Reportable 09/20/17 04:26 Hypogranular Neuts Not Reportable 09/20/17 04:26 Smudge Cells Not Reportable 09/20/17 04:26 Toxic Granulation Not Reportable 09/20/17 04:26 Toxic Vacuolation Not Reportable 09/20/17 04:26 Dohle Bodies Not Reportable 09/20/17 04:26 Pelger-Huet Anomaly Not Reportable 09/20/17 04:26 [place] Rods Not Reportable 09/20/17 04:26 Platelet Estimate Appears decreased 09/20/17 04:26 Clumped Platelets Not Reportable 09/20/17 04:26 Plt Clumps, EDTA Not Reportable 09/20/17 04:26 Large Platelets Not Reportable 09/20/17 04:26 Giant Platelets Not Reportable 09/20/17 04:26 Platelet Satelliting Not Reportable 09/20/17 04:26 Plt Morphology Comment Not Reportable 09/20/17 04:26 RBC Morphology Not Reportable 09/20/17 04:26 Dimorphic RBCs Not Reportable 09/20/17 04:26 Polychromasia Not Reportable 09/20/17 04:26 Hypochromasia Not Reportable 09/20/17 04:26 Poikilocytosis Not Reportable 09/20/17 04:26 Anisocytosis 1+ 09/20/17 04:26 Microcytosis Not Reportable 09/20/17 04:26 Macrocytosis Not Reportable 09/20/17 04:26 Spherocytes Not Reportable 09/20/17 04:26 Pappenheimer Bodies Not Reportable 09/20/17 04:26 Sickle Cells Not Reportable 09/20/17 04:26 Target Cells Not Reportable 09/20/17 04:26 Tear Drop Cells Few 09/20/17 04:26 Ovalocytes 1+ 09/20/17 04:26 Helmet Cells 1+ 09/20/17 04:26 [place] Bodies Not Reportable 09/20/17 04:26 [place] Rings Not Reportable 09/20/17 04:26 [place] Cells Not Reportable 09/20/17 04:26 Bite Cells Few 09/20/17 04:26 Crenated Cell Not Reportable 09/20/17 04:26 Elliptocytes 1+ 09/20/17 04:26 Acanthocytes (Spur) 1+ 09/20/17 04:26 Rouleaux Not Reportable 09/20/17 04:26 Hemoglobin C Crystals Not Reportable 09/20/17 04:26 Schistocytes Not Reportable 09/20/17 04:26 Malaria parasites Not Reportable 09/20/17 04:26 [place] Bodies Not Reportable 09/20/17 04:26 Hem Pathologist Commnt No 09/20/17 04:26 Sodium 146 mmol/L (137-145) H 09/20/17 04:26 Potassium 4.0 mmol/L (3.6-5.0) 09/20/17 04:26 Chloride 112.7 mmol/L (98-107) H 09/20/17 04:26 Carbon Dioxide 19 mmol/L (22-30) L 09/20/17 04:26 Anion Gap 18 mmol/L 09/20/17 04:26 BUN 25 mg/dL (9-20) H 09/20/17 04:26 Creatinine 2.7 mg/dL (0.8-1.5) H 09/20/17 04:26 Estimated GFR 27 ml/min 09/20/17 04:26 BUN/Creatinine Ratio 9 % 09/20/17 04:26 Glucose 107 mg/dL (75-100) H 09/20/17 04:26 Hemoglobin A1c 4.6 % (4-6) 09/19/17 21:49 Lactic Acid 0.80 mmol/L (0.7-2.0) 09/19/17 14:02 Calcium 9.3 mg/dL (8.4-10.2) 09/20/17 04:26 Magnesium 2.30 mg/dL (1.7-2.3) 09/19/17 11:37 Total Bilirubin 0.90 mg/dL (0.1-1.2) 09/20/17 04:26 AST 41 units/L (5-40) H 09/20/17 04:26 ALT 9 units/L (7-56) 09/20/17 04:26 Alkaline Phosphatase 47 units/L (35-129) 09/20/17 04:26 Total Protein 7.7 g/dL (6.3-8.2) 09/20/17 04:26 Albumin 4.1 g/dL (3.9-5) 09/20/17 04:26 Albumin/Globulin Ratio 1.1 % 09/20/17 04:26 TSH 4.050 mlU/mL (0.270-4.200) 09/19/17 11:37 Urine Color Straw (Yellow) 09/19/17 12:40 Urine Turbidity Clear (Clear) 09/19/17 12:40 Urine pH 7.0 (5.0-7.0) 09/19/17 12:40 Ur Specific [place] 1.011 (1.003-1.030) 09/19/17 12:40 Urine Protein 100 mg/dl mg/dL (Negative) 09/19/17 12:40 Urine Glucose (UA) Neg mg/dL (Negative) 09/19/17 12:40 Urine Ketones Neg mg/dL (Negative) 09/19/17 12:40 Urine Blood Mod (Negative) 09/19/17 12:40 Urine Nitrite Neg (Negative) 09/19/17 12:40 Urine Bilirubin Neg (Negative) 09/19/17 12:40 Urine Urobilinogen < 2.0 mg/dL (<2.0) 09/19/17 12:40 Ur Leukocyte Esterase Neg (Negative) 09/19/17 12:40 Urine WBC (Auto) 1.0 /HPF (0.0-6.0) 09/19/17 12:40 Urine RBC (Auto) < 1.0 /HPF (0.0-6.0) 09/19/17 12:40 Hyaline Casts 3 /LPF 09/19/17 12:40 Urine Mucus Few /HPF 09/19/17 12:40 Salicylates < 0.3 mg/dL (2.8-20.0) L 09/19/17 11:37 Urine Opiates Screen Presumptive negative 09/19/17 12:40 Urine Methadone Screen Presumptive negative 09/19/17 12:40 Acetaminophen < 15.0 ug/mL (10.0-30.0) 09/19/17 11:37 Ur Barbiturates Screen Presumptive negative 09/19/17 12:40 Ur Phencyclidine Scrn Presumptive negative 09/19/17 12:40 Ur Amphetamines Screen Presumptive negative 09/19/17 12:40 U Benzodiazepines Scrn Presumptive negative 09/19/17 12:40 Urine Cocaine Screen Presumptive negative 09/19/17 12:40 U Marijuana (THC) Screen Presumptive positive 09/19/17 12:40 Drugs of Abuse Note Disclamer 09/19/17 12:40 Plasma/Serum Alcohol < 0.01 gm% (0-0.07) 09/19/17 11:37 - Imaging and Cardiology CT Scan - head: image reviewed (NO ACUTE PATHOLOGY)
[2017-09-20] MEDS: PEPCID PO SCH (21:12)
[2017-09-21] MEDS: APRESOLINE PO SCH ×3 (05:40→23:14)
[2017-09-21 06:30] LABS: Calcium 8.9 mg/dL (8.4-10.2); Chloride 108.9 mmol/L (98-107); Potassium 4.1 mmol/L (3.6-5.0)
[2017-09-21] MEDS ORDERED: APRESOLINE PO SCH (08:04)
[2017-09-21] MEDS: PEPCID PO SCH ×2 (09:00→23:14)
[2017-09-21] MEDS: PROCARDIA XL PO SCH (09:00)
[2017-09-21] MEDS: KEPPRA PO SCH ×2 (09:00→22:11)
[2017-09-21] MEDS: IMDUR PO SCH (09:00)
--- NOTE | 2017-09-21 10:08 | Progress Note ---
Assessment and Plan Assessment and plan: 37-year-old -[place] male with past medical history of hypertension DYE and chronic kidney disease and seizures comes in for altered sensorium. Patient apparently passed out for a few minutes. Patient used marijuana this a.m. Patient has not been taking blood pressure medications for a long time .no seizures. No fever no chills. Slight shortness of breath present. No chest pain. Hypertensive encephalopathy seizure disorder Acute kidney injury secondary to tubular necrosis Lactic acidosis -resolved Mild rhabdomyolysis HIV Thrombocytopenia Hypokalemia THC abuse HTN urgency-still uncontrolled Proteinuria PLAN Supportive care Drug screen only positive for THC patient denies any other illicit drugs. Recommend outpatient hematology evaluation considering pancytopenia this could also be related to patient's HIV. We'll recommend outpatient follow-up with ID for HIV management. continue iv hydration In the setting of worsening renal function will continue to hold all nephrotoxic meds nephrology and pulmonary input noted We'll increase isosorbide to 60 mg daily and also adjust Coreg. Goal is to limits number of blood pressure control medications on discharge to ensure compliance. Patient still would fluctuate in blood pressure was systolic remain elevated and diastolic still above 100 will like to see improvement office prior to discharge continue current therapy Counseling ON SUBSTANCE ABUSE dvt/gi prophy seizure precautions Anticipated discharge and 24 hours with improvement in blood pressure. History Interval history: Patient seen and examined, in no acute distress. lying comfortably in bed, denies any chest pain, nausea, vomiting. Patient denies any seizure-like activity I did review the triage note although it was mentioned that he was combative was no reported seizure by EMS by bystanders. He reports compliance to his seizure medications. Also states that his blood pressure has been well- controlled although he does not have absolute numbers that they've not been as high as has been recorded here in the hospital. Hospitalist Physical - Physical exam Narrative exam: VITAL SIGNS: Reviewed. GENERAL: The patient appeared well nourished and normally developed. Vital signs as documented. HEAD: No signs of head trauma. EYES: Pupils are equal. Extraocular motions intact. EARS: Hearing grossly intact. MOUTH: Oropharynx is normal. NECK: No adenopathy, no JVD. CHEST: Chest with clear breath sounds bilaterally. No wheezes, rales, or rhonchi. CARDIAC: Regular rate and rhythm. S1 and S2, without murmurs, gallops, or rubs. VASCULAR: No Edema. Peripheral pulses normal and equal in all extremities. ABDOMEN: Soft, without detectable tenderness. No sign of distention. No rebound or guarding, and no masses palpated. Bowel Sounds normal. MUSCULOSKELETAL: Good range of motion of all major joints. Extremities without clubbing, cyanosis or edema. NEUROLOGIC EXAM: Alert and oriented x 3. No focal sensory or strength deficits. Speech normal. Follows commands. PSYCHIATRIC: Mood normal. SKIN: No rash or lesions. - Constitutional Vitals: Temp Pulse Resp BP Pulse Ox 98.2 F 70 18 180/135 99 09/21/17 07:52 09/21/17 07:52 09/21/17 07:52 09/21/17 07:52 09/21/17 07:52 General appearance: Present: no acute distress, well-nourished Results - Labs CBC & Chem 7: 09/20/17 04:26 09/21/17 05:46 Labs: Laboratory Last Values WBC 4.2 K/mm3 (4.5-11.0) L 09/20/17 04:26 RBC 4.18 M/mm3 (3.65-5.03) 09/20/17 04:26 Hgb 11.4 gm/dl (11.8-15.2) L 09/20/17 04:26 Hct 34.2 % (35.5-45.6) L 09/20/17 04:26 MCV 82 fl (84-94) L 09/20/17 04:26 MCH 27 pg (28-32) L 09/20/17 04:26 MCHC 33 % (32-34) 09/20/17 04:26 RDW 17.3 % (13.2-15.2) H 09/20/17 04:26 Plt Count 72 K/mm3 (140-440) L 09/20/17 04:26 Lymph % (Auto) [place] 09/19/17 11:37 [place] % (Auto) [place] Hand 09/19/17 11:37 Eos % (Auto) [place] 09/19/17 11:37 Baso % (Auto) [place] 09/19/17 11:37 Lymph # [place] 09/19/17 11:37 [place] # [place] 09/19/17 11:37 Eos # [place] 09/19/17 11:37 Baso # [place] 09/19/17 11:37 Add Manual Diff Complete 12/14/17 04:26 Total Counted 100 09/20/17 04:26 Seg Neutrophils % [place] 09/19/17 11:37 Seg Neuts % (Manual) 81.0 % (40.0-70.0) H 09/20/17 04:26 Band Neutrophils % 0 % 09/20/17 04:26 Lymphocytes % (Manual) 16.0 % (13.4-35.0) 09/20/17 04:26 Reactive Lymphs % (Man) 0 % 09/20/17 04:26 Monocytes % (Manual) 3.0 % (0.0-7.3) 09/20/17 04:26 Eosinophils % (Manual) 0 % (0.0-4.3) 09/20/17 04:26 Basophils % (Manual) 0 % (0.0-1.8) 09/20/17 04:26 Metamyelocytes % 0 % 09/20/17 04:26 Myelocytes % 0 % 09/20/17 04:26 Promyelocytes % 0 % 09/20/17 04:26 Blast Cells % 0 % 09/20/17 04:26 Nucleated RBC % Not Reportable 09/20/17 04:26 Seg Neutrophils # [place] 09/19/17 11:37 Seg Neutrophils # Man 3.4 K/mm3 (1.8-7.7) 09/20/17 04:26 Band Neutrophils # 0.0 K/mm3 09/20/17 04:26 Lymphocytes # (Manual) 0.7 K/mm3 (1.2-5.4) L 09/20/17 04:26 Abs React Lymphs (Man) 0.0 K/mm3 09/20/17 04:26 Monocytes # (Manual) 0.1 K/mm3 (0.0-0.8) 09/20/17 04:26 Eosinophils # (Manual) 0.0 K/mm3 (0.0-0.4) 09/20/17 04:26 Basophils # (Manual) 0.0 K/mm3 (0.0-0.1) 09/20/17 04:26 Metamyelocytes # 0.0 K/mm3 09/20/17 04:26 Myelocytes # 0.0 K/mm3 09/20/17 04:26 Promyelocytes # 0.0 K/mm3 09/20/17 04:26 Blast Cells # 0.0 K/mm3 09/20/17 04:26 WBC Morphology Not Reportable 09/20/17 04:26 Hypersegmented Neuts Not Reportable 09/20/17 04:26 Hyposegmented Neuts Not Reportable 09/20/17 04:26 Hypogranular Neuts Not Reportable 09/20/17 04:26 Smudge Cells Not Reportable 09/20/17 04:26 Toxic Granulation Not Reportable 09/20/17 04:26 Toxic Vacuolation Not Reportable 09/20/17 04:26 Dohle Bodies Not Reportable 09/20/17 04:26 Pelger-Huet Anomaly Not Reportable 09/20/17 04:26 Dana Rods Not Reportable 09/20/17 04:26 Platelet Estimate Appears decreased 09/20/17 04:26 Clumped Platelets Not Reportable 09/20/17 04:26 Plt Clumps, EDTA Not Reportable 09/20/17 04:26 Large Platelets Not Reportable 09/20/17 04:26 Giant Platelets Not Reportable 09/20/17 04:26 Platelet Satelliting Not Reportable 09/20/17 04:26 Plt Morphology Comment Not Reportable 09/20/17 04:26 RBC Morphology Not Reportable 09/20/17 04:26 Dimorphic RBCs Not Reportable 09/20/17 04:26 Polychromasia Not Reportable 09/20/17 04:26 Hypochromasia Not Reportable 09/20/17 04:26 Poikilocytosis Not Reportable 09/20/17 04:26 Anisocytosis 1+ 09/20/17 04:26 Microcytosis Not Reportable 09/20/17 04:26 Macrocytosis Not Reportable 09/20/17 04:26 Spherocytes Not Reportable 09/20/17 04:26 Pappenheimer Bodies Not Reportable 09/20/17 04:26 Sickle Cells Not Reportable 09/20/17 04:26 Target Cells Not Reportable 09/20/17 04:26 Tear Drop Cells Few 09/20/17 04:26 Ovalocytes 1+ 09/20/17 04:26 Helmet Cells 1+ 09/20/17 04:26 [place] Bodies Not Reportable 09/20/17 04:26 [place] Rings Not Reportable 09/20/17 04:26 [place] Cells Not Reportable 09/20/17 04:26 Bite Cells Few 09/20/17 04:26 Crenated Cell Not Reportable 09/20/17 04:26 Elliptocytes 1+ 09/20/17 04:26 Acanthocytes (Spur) 1+ 09/20/17 04:26 Rouleaux Not Reportable 09/20/17 04:26 Hemoglobin C Crystals Not Reportable 09/20/17 04:26 Schistocytes Not Reportable 09/20/17 04:26 Malaria parasites Not Reportable 09/20/17 04:26 [place] Bodies Not Reportable 09/20/17 04:26 Hem Pathologist Commnt No 09/20/17 04:26 Sodium 143 mmol/L (137-145) 09/21/17 05:46 Potassium 4.1 mmol/L (3.6-5.0) 09/21/17 05:46 Chloride 108.9 mmol/L (98-107) H 09/21/17 05:46 Carbon Dioxide 20 mmol/L (22-30) L 09/21/17 05:46 Anion Gap 18 mmol/L 09/21/17 05:46 BUN 31 mg/dL (9-20) H 09/21/17 05:46 Creatinine 3.3 mg/dL (0.8-1.5) H 09/21/17 05:46 Estimated GFR 21 ml/min 09/21/17 05:46 BUN/Creatinine Ratio 9 % 09/21/17 05:46 Glucose 97 mg/dL (75-100) 09/21/17 05:46 Hemoglobin A1c 4.6 % (4-6) 09/19/17 21:49 Lactic Acid 0.80 mmol/L (0.7-2.0) 09/19/17 14:02 Calcium 8.9 mg/dL (8.4-10.2) 09/21/17 05:46 Magnesium 2.30 mg/dL (1.7-2.3) 09/19/17 11:37 Total Bilirubin 0.90 mg/dL (0.1-1.2) 09/20/17 04:26 AST 41 units/L (5-40) H 09/20/17 04:26 ALT 9 units/L (7-56) 09/20/17 04:26 Alkaline Phosphatase 47 units/L (35-129) 09/20/17 04:26 Total Creatine Kinase 933 units/L (55-170) H 09/21/17 05:46 Total Protein 7.7 g/dL (6.3-8.2) 09/20/17 04:26 Albumin 4.1 g/dL (3.9-5) 09/20/17 04:26 Albumin/Globulin Ratio 1.1 % 09/20/17 04:26 TSH 4.050 mlU/mL (0.270-4.200) 09/19/17 11:37 Urine Color Straw (Yellow) 09/19/17 12:40 Urine Turbidity Clear (Clear) 09/19/17 12:40 Urine pH 7.0 (5.0-7.0) 09/19/17 12:40 Ur Specific [place] 1.011 (1.003-1.030) 09/19/17 12:40 Urine Protein 100 mg/dl mg/dL (Negative) 09/19/17 12:40 Urine Glucose (UA) Neg mg/dL (Negative) 09/19/17 12:40 Urine Ketones Neg mg/dL (Negative) 09/19/17 12:40 Urine Blood Mod (Negative) 09/19/17 12:40 Urine Nitrite Neg (Negative) 09/19/17 12:40 Urine Bilirubin Neg (Negative) 09/19/17 12:40 Urine Urobilinogen < 2.0 mg/dL (<2.0) 09/19/17 12:40 Ur Leukocyte Esterase Neg (Negative) 09/19/17 12:40 Urine WBC (Auto) 1.0 /HPF (0.0-6.0) 09/19/17 12:40 Urine RBC (Auto) < 1.0 /HPF (0.0-6.0) 09/19/17 12:40 Hyaline Casts 3 /LPF 09/19/17 12:40 Urine Mucus Few /HPF 09/19/17 12:40 Salicylates < 0.3 mg/dL (2.8-20.0) L 09/19/17 11:37 Urine Opiates Screen Presumptive negative 09/19/17 12:40 Urine Methadone Screen Presumptive negative 09/19/17 12:40 Acetaminophen < 15.0 ug/mL (10.0-30.0) 09/19/17 11:37 Ur Barbiturates Screen Presumptive negative 09/19/17 12:40 Ur Phencyclidine Scrn Presumptive negative 09/19/17 12:40 Ur Amphetamines Screen Presumptive negative 09/19/17 12:40 U Benzodiazepines Scrn Presumptive negative 09/19/17 12:40 Urine Cocaine Screen Presumptive negative 09/19/17 12:40 U Marijuana (THC) Screen Presumptive positive 09/19/17 12:40 Drugs of Abuse Note Disclamer 09/19/17 12:40 Plasma/Serum Alcohol < 0.01 gm% (0-0.07) 09/19/17 11:37
--- NOTE | 2017-09-21 10:13 | Progress Note ---
Assessment and Plan 1. 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 Increase in the creatinine level noted. Monitor renal function. 2. Uncontrolled HTN: BP is better. Continue current meds. 3. Hypokalemia: Improved. 4. Proteinuria: Likely secondary to HIVAN. 5. HIV. 6. Encephalopathy. Subjective Date of service: 09/21/17 Interval history: Patient doing ok. Objective - Vital Signs Vital signs: Vital Signs - 12hr 09/20/17 09/21/17 09/21/17 23:40 05:00 07:52 Temperature 98.0 F 98.4 F 98.2 F Pulse Rate 93 H 74 70 Respiratory 18 18 18 Rate Blood Pressure 139/80 168/118 180/135 O2 Sat by Pulse 97 98 99 Oximetry - General Appearance General appearance: well-developed, well-nourished, appears stated age, other ( no distress) EENT: ATNC, PERRL, mucous membranes moist, hearing intact, vision intact Neck: supple Respiratory: Present: Clear to Ascultation Cardiology: regular, S1S2, no murmurs Gastrointestinal: normoactive bowel sounds, no tenderness, no distended Integumentary: no rash, warm and dry Neurologic: no focal deficit, no asterixis, alert and oriented x3, CN 3-12 intact Musculoskeletal: other (no edema) Psychiatric: mood/affect appropriate, cooperative - Lab 09/20/17 04:26 09/21/17 05:46 Most recent lab results Calcium 8.9 mg/dL (8.4-10.2) 09/21/17 05:46 Magnesium 2.30 mg/dL (1.7-2.3) 09/19/17 11:37
[2017-09-21] MEDS ORDERED: IMDUR PO SCH (11:00)
[2017-09-21] MEDS: COREG PO SCH ×2 (16:34→22:14)
[2017-09-21] MEDS ORDERED: APRESOLINE IV PRN (18:44)
[2017-09-22 06:00] LABS: Hematocrit 28.3 % (35.5-45.6); Hemoglobin 9.5 gm/dl (11.8-15.2); Mean Corpuscular HGB Conc 34 % (32-34); Mean Corpuscular Hemoglobin 28 pg (28-32); Mean Corpuscular Volume 82 fl (84-94); Red Blood Count 3.45 M/mm3 (3.65-5.03); Red Cell Distribution Width 16.8 % (13.2-15.2); White Blood Count 2.5 K/mm3 (4.5-11.0)
[2017-09-22] MEDS: APRESOLINE PO SCH ×3 (06:13→21:19)
[2017-09-22 06:15] LABS: Platelet Count 95 K/mm3 (140-440)
[2017-09-22 06:17] LABS: Chloride 106.4 mmol/L (98-107)
[2017-09-22] MEDS: IMDUR PO SCH (10:03)
[2017-09-22] MEDS: KEPPRA PO SCH ×2 (10:04→21:21)
[2017-09-22] MEDS: COREG PO SCH ×2 (10:05→21:18)
[2017-09-22] MEDS: PEPCID PO SCH ×2 (10:05→21:18)
[2017-09-22] MEDS: PROCARDIA XL PO SCH ×2 (10:05→21:18)
[2017-09-22] MEDS ORDERED: NORVASC PO SCH (12:00)
--- NOTE | 2017-09-22 13:58 | Progress Note ---
Assessment and Plan - Patient Problems (1) Hypertensive encephalopathy Current Visit: Yes Status: Acute Plan to address problem: Continue current medications. (2) Seizure disorder Current Visit: Yes Status: Chronic Plan to address problem: Anti-seizure medications (3) HIV (human immunodeficiency virus infection) Current Visit: Yes Status: Chronic Plan to address problem: Continue all medications (4) ARF (acute renal failure) with tubular necrosis Current Visit: No Status: Acute Plan to address problem: Per renal Subjective Date of service: 09/21/17 Interval history: Patient seen and examined. Vitals, labs, medications, chart. He denies any chest pain, no shortness of breath. No fevers, no chills. No abdominal pain, no nausea or vomiting. Objective - Exam Narrative Exam: VITAL SIGNS: Reviewed. GENERAL: The patient appeared well nourished and normally developed. Vital signs as documented. HEAD: No signs of head trauma. EYES: Pupils are equal. Extraocular motions intact. EARS: Hearing grossly intact. MOUTH: Oropharynx is normal. NECK: No adenopathy, no JVD. CHEST: Chest with clear breath sounds bilaterally. No wheezes, rales, or rhonchi. CARDIAC: Regular rate and rhythm. S1 and S2, without murmurs, gallops, or rubs. VASCULAR: No Edema. Peripheral pulses normal and equal in all extremities. ABDOMEN: Soft, without detectable tenderness. No sign of distention. No rebound or guarding, and no masses palpated. Bowel Sounds normal. MUSCULOSKELETAL: Good range of motion of all major joints. Extremities without clubbing, cyanosis or edema. NEUROLOGIC EXAM: Alert and oriented x 3. No focal sensory or strength deficits. Speech normal. Follows commands. PSYCHIATRIC: Mood normal. SKIN: No rash or lesions. Vital Signs - 12hr 09/22/17 09/22/17 09/22/17 04:36 08:23 09:40 Temperature 98.4 F 98.8 F Pulse Rate 72 78 Pulse Rate [ 78 From Monitor] Respiratory 18 20 20 Rate Blood Pressure 147/93 153/113 O2 Sat by Pulse 97 99 Oximetry 09/22/17 09/22/17 09/22/17 10:03 10:05 11:49 Temperature 97.7 F Pulse Rate 78 78 74 Pulse Rate [ From Monitor] Respiratory 20 Rate Blood Pressure 153/113 153/113 164/113 O2 Sat by Pulse 98 Oximetry 12/16/17 12:55 Temperature Pulse Rate 78 Pulse Rate [ From Monitor] Respiratory Rate Blood Pressure 164/113 O2 Sat by Pulse Oximetry CBC and BMP: 09/22/17 04:51 09/22/17 04:51 Abnormal lab findings: Abnormal Labs 09/19/17 09/19/17 09/19/17 11:37 11:37 11:37 WBC 2.5 L RBC Hgb 11.2 L Hct 34.4 L MCV 82 L MCH 27 L RDW 17.1 H Plt Count 75 L Seg Neuts % (Manual) 76.0 H Lymphocytes % (Manual) 12.0 L Lymphocytes # (Manual) 0.3 L Sodium Potassium 3.4 L Chloride 107.4 H Carbon Dioxide 18 L BUN 29 H Creatinine 2.6 H Glucose 110 H Lactic Acid 3.50 H* AST Total Creatine Kinase Salicylates 09/19/17 09/20/17 09/20/17 11:37 04:26 04:26 WBC 4.2 L RBC Hgb 11.4 L Hct 34.2 L MCV 82 L MCH 27 L RDW 17.3 H Plt Count 72 L Seg Neuts % (Manual) 81.0 H Lymphocytes % (Manual) Lymphocytes # (Manual) 0.7 L Sodium 146 H Potassium Chloride 112.7 H Carbon Dioxide 19 L BUN 25 H Creatinine 2.7 H Glucose 107 H Lactic Acid AST 41 H Total Creatine Kinase Salicylates < 0.3 L 09/20/17 09/21/17 09/22/17 19:53 05:46 04:51 WBC 2.5 L RBC 3.45 L Hgb 9.5 L Hct 28.3 L MCV 82 L MCH RDW 16.8 H Plt Count 95 L Seg Neuts % (Manual) Lymphocytes % (Manual) Lymphocytes # (Manual) Sodium Potassium Chloride 108.9 H Carbon Dioxide 20 L BUN 31 H Creatinine 3.3 H Glucose Lactic Acid AST Total Creatine Kinase 976 H 933 H Salicylates 09/22/17 04:51 WBC RBC Hgb Hct MCV MCH RDW Plt Count Seg Neuts % (Manual) Lymphocytes % (Manual) Lymphocytes # (Manual) Sodium Potassium Chloride Carbon Dioxide 20 L BUN 33 H Creatinine 3.3 H Glucose Lactic Acid AST Total Creatine Kinase Salicylates Allied health notes reviewed: nursing
--- NOTE | 2017-09-22 15:41 | Progress Note ---
Assessment and Plan Assessment and plan: 37-year-old -[place] male with past medical history of hypertension DYE and chronic kidney disease and seizures comes in for altered sensorium. Patient apparently passed out for a few minutes. Patient used marijuana this a.m. Patient has not been taking blood pressure medications for a long time .no seizures. No fever no chills. Slight shortness of breath present. No chest pain. Hypertensive encephalopathy seizure disorder Acute kidney injury secondary to tubular necrosis Lactic acidosis -resolved Mild rhabdomyolysis HIV Thrombocytopenia Hypokalemia THC abuse HTN urgency-still uncontrolled Proteinuria PLAN Supportive care Drug screen only positive for THC patient denies any other illicit drugs. Recommend outpatient hematology evaluation considering pancytopenia this could also be related to patient's HIV. We'll recommend outpatient follow-up with ID for HIV management. monitor renal function. hydrate per nephrology BP still elevated and persistently diastolic elevation, will change to norvasc 10 Goal is to limits number of blood pressure control medications on discharge to ensure compliance. Patient still would fluctuate in blood pressure was systolic remain elevated and diastolic still above 100 will like to see improvement office prior to discharge continue current therapy Counseling ON SUBSTANCE ABUSE dvt/gi prophy seizure precautions Anticipated discharge and 24 hours with improvement in blood pressure. History Interval history: Patient seen and examined, in no acute distress. no new complaints, ambulating, no headache or blurry vision Hospitalist Physical - Physical exam Narrative exam: VITAL SIGNS: Reviewed. GENERAL: The patient appeared well nourished and normally developed. Vital signs as documented. HEAD: No signs of head trauma. EYES: Pupils are equal. Extraocular motions intact. EARS: Hearing grossly intact. MOUTH: Oropharynx is normal. NECK: No adenopathy, no JVD. CHEST: Chest with clear breath sounds bilaterally. No wheezes, rales, or rhonchi. CARDIAC: Regular rate and rhythm. S1 and S2, without murmurs, gallops, or rubs. VASCULAR: No Edema. Peripheral pulses normal and equal in all extremities. ABDOMEN: Soft, without detectable tenderness. No sign of distention. No rebound or guarding, and no masses palpated. Bowel Sounds normal. MUSCULOSKELETAL: Good range of motion of all major joints. Extremities without clubbing, cyanosis or edema. NEUROLOGIC EXAM: Alert and oriented x 3. No focal sensory or strength deficits. Speech normal. Follows commands. PSYCHIATRIC: Mood normal. SKIN: No rash or lesions. - Constitutional Vitals: Temp Pulse Resp BP Pulse Ox 97.7 F 78 20 164/113 98 09/22/17 11:49 09/22/17 12:55 09/22/17 11:49 09/22/17 12:55 09/22/17 11:49 General appearance: Present: no acute distress, well-nourished Results - Labs CBC & Chem 7: 09/22/17 04:51 09/22/17 04:51 Labs: Laboratory Last Values WBC 2.5 K/mm3 (4.5-11.0) L 09/22/17 04:51 RBC 3.45 M/mm3 (3.65-5.03) L 09/22/17 04:51 Hgb 9.5 gm/dl (11.8-15.2) L 09/22/17 04:51 Hct 28.3 % (35.5-45.6) L 09/22/17 04:51 MCV 82 fl (84-94) L 09/22/17 04:51 MCH 28 pg (28-32) 09/22/17 04:51 MCHC 34 % (32-34) 09/22/17 04:51 RDW 16.8 % (13.2-15.2) H 09/22/17 04:51 Plt Count 95 K/mm3 (140-440) L 09/22/17 04:51 Lymph % (Auto) Outreach Professional 09/19/17 11:37 [place] % (Auto) Outreach Professional 09/19/17 11:37 Eos % (Auto) Outreach Professional 09/19/17 11:37 Baso % (Auto) Outreach Professional 09/19/17 11:37 Lymph # Outreach Professional 09/19/17 11:37 [place] # Outreach Professional 09/19/17 11:37 Eos # Outreach Professional 09/19/17 11:37 Baso # Outreach Professional 09/19/17 11:37 Add Manual Diff Complete 09/20/17 04:26 Total Counted 100 09/20/17 04:26 Seg Neutrophils % Outreach Professional 09/19/17 11:37 Seg Neuts % (Manual) 81.0 % (40.0-70.0) H 09/20/17 04:26 Band Neutrophils % 0 % 09/20/17 04:26 Lymphocytes % (Manual) 16.0 % (13.4-35.0) 09/20/17 04:26 Reactive Lymphs % (Man) 0 % 09/20/17 04:26 Monocytes % (Manual) 3.0 % (0.0-7.3) 09/20/17 04:26 Eosinophils % (Manual) 0 % (0.0-4.3) 09/20/17 04:26 Basophils % (Manual) 0 % (0.0-1.8) 09/20/17 04:26 Metamyelocytes % 0 % 09/20/17 04:26 Myelocytes % 0 % 09/20/17 04:26 Promyelocytes % 0 % 09/20/17 04:26 Blast Cells % 0 % 09/20/17 04:26 Nucleated RBC % Not Reportable 09/20/17 04:26 Seg Neutrophils # Outreach Professional 09/19/17 11:37 Seg Neutrophils # Man 3.4 K/mm3 (1.8-7.7) 09/20/17 04:26 Band Neutrophils # 0.0 K/mm3 09/20/17 04:26 Lymphocytes # (Manual) 0.7 K/mm3 (1.2-5.4) L 09/20/17 04:26 Abs React Lymphs (Man) 0.0 K/mm3 09/20/17 04:26 Monocytes # (Manual) 0.1 K/mm3 (0.0-0.8) 09/20/17 04:26 Eosinophils # (Manual) 0.0 K/mm3 (0.0-0.4) 09/20/17 04:26 Basophils # (Manual) 0.0 K/mm3 (0.0-0.1) 09/20/17 04:26 Metamyelocytes # 0.0 K/mm3 09/20/17 04:26 Myelocytes # 0.0 K/mm3 09/20/17 04:26 Promyelocytes # 0.0 K/mm3 09/20/17 04:26 Blast Cells # 0.0 K/mm3 09/20/17 04:26 WBC Morphology Not Reportable 09/20/17 04:26 Hypersegmented Neuts Not Reportable 09/20/17 04:26 Hyposegmented Neuts Not Reportable 09/20/17 04:26 Hypogranular Neuts Not Reportable 09/20/17 04:26 Smudge Cells Not Reportable 09/20/17 04:26 Toxic Granulation Not Reportable 09/20/17 04:26 Toxic Vacuolation Not Reportable 09/20/17 04:26 Dohle Bodies Not Reportable 09/20/17 04:26 Pelger-Huet Anomaly Not Reportable 09/20/17 04:26 Dana Rods Not Reportable 09/20/17 04:26 Platelet Estimate Appears decreased 09/20/17 04:26 Clumped Platelets Not Reportable 09/20/17 04:26 Plt Clumps, EDTA Not Reportable 09/20/17 04:26 Large Platelets Not Reportable 09/20/17 04:26 Giant Platelets Not Reportable 09/20/17 04:26 Platelet Satelliting Not Reportable 09/20/17 04:26 Plt Morphology Comment Not Reportable 09/20/17 04:26 RBC Morphology Not Reportable 09/20/17 04:26 Dimorphic RBCs Not Reportable 09/20/17 04:26 Polychromasia Not Reportable 09/20/17 04:26 Hypochromasia Not Reportable 09/20/17 04:26 Poikilocytosis Not Reportable 09/20/17 04:26 Anisocytosis 1+ 09/20/17 04:26 Microcytosis Not Reportable 09/20/17 04:26 Macrocytosis Not Reportable 09/20/17 04:26 Spherocytes Not Reportable 09/20/17 04:26 Pappenheimer Bodies Not Reportable 09/20/17 04:26 Sickle Cells Not Reportable 09/20/17 04:26 Target Cells Not Reportable 09/20/17 04:26 Tear Drop Cells Few 09/20/17 04:26 Ovalocytes 1+ 09/20/17 04:26 Helmet Cells 1+ 09/20/17 04:26 [place] Bodies Not Reportable 09/20/17 04:26 [place] Rings Not Reportable 09/20/17 04:26 [place] Cells Not Reportable 09/20/17 04:26 Bite Cells Few 09/20/17 04:26 Crenated Cell Not Reportable 09/20/17 04:26 Elliptocytes 1+ 09/20/17 04:26 Acanthocytes (Spur) 1+ 09/20/17 04:26 Rouleaux Not Reportable 09/20/17 04:26 Hemoglobin C Crystals Not Reportable 09/20/17 04:26 Schistocytes Not Reportable 09/20/17 04:26 Malaria parasites Not Reportable 09/20/17 04:26 [place] Bodies Not Reportable 09/20/17 04:26 Hem Pathologist Commnt No 09/20/17 04:26 Sodium 141 mmol/L (137-145) 09/22/17 04:51 Potassium 4.0 mmol/L (3.6-5.0) 09/22/17 04:51 Chloride 106.4 mmol/L (98-107) 09/22/17 04:51 Carbon Dioxide 20 mmol/L (22-30) L 09/22/17 04:51 Anion Gap 19 mmol/L 09/22/17 04:51 BUN 33 mg/dL (9-20) H 09/22/17 04:51 Creatinine 3.3 mg/dL (0.8-1.5) H 09/22/17 04:51 Estimated GFR 21 ml/min 09/22/17 04:51 BUN/Creatinine Ratio 10 % 09/22/17 04:51 Glucose 92 mg/dL (75-100) 09/22/17 04:51 Hemoglobin A1c 4.6 % (4-6) 09/19/17 21:49 Lactic Acid 0.80 mmol/L (0.7-2.0) 09/19/17 14:02 Calcium 9.0 mg/dL (8.4-10.2) 09/22/17 04:51 Magnesium 2.30 mg/dL (1.7-2.3) 09/19/17 11:37 Total Bilirubin 0.90 mg/dL (0.1-1.2) 09/20/17 04:26 AST 41 units/L (5-40) H 09/20/17 04:26 ALT 9 units/L (7-56) 09/20/17 04:26 Alkaline Phosphatase 47 units/L (35-129) 09/20/17 04:26 Total Creatine Kinase 933 units/L (55-170) H 09/21/17 05:46 Total Protein 7.7 g/dL (6.3-8.2) 09/20/17 04:26 Albumin 4.1 g/dL (3.9-5) 09/20/17 04:26 Albumin/Globulin Ratio 1.1 % 09/20/17 04:26 TSH 4.050 mlU/mL (0.270-4.200) 09/19/17 11:37 PTH Intact 64.20 pg/mL (15-65) 09/22/17 04:51 Urine Color Straw (Yellow) 09/19/17 12:40 Urine Turbidity Clear (Clear) 09/19/17 12:40 Urine pH 7.0 (5.0-7.0) 09/19/17 12:40 Ur Specific [place] 1.011 (1.003-1.030) 09/19/17 12:40 Urine Protein 100 mg/dl mg/dL (Negative) 09/19/17 12:40 Urine Glucose (UA) Neg mg/dL (Negative) 09/19/17 12:40 Urine Ketones Neg mg/dL (Negative) 09/19/17 12:40 Urine Blood Mod (Negative) 09/19/17 12:40 Urine Nitrite Neg (Negative) 09/19/17 12:40 Urine Bilirubin Neg (Negative) 09/19/17 12:40 Urine Urobilinogen < 2.0 mg/dL (<2.0) 09/19/17 12:40 Ur Leukocyte Esterase Neg (Negative) 09/19/17 12:40 Urine WBC (Auto) 1.0 /HPF (0.0-6.0) 09/19/17 12:40 Urine RBC (Auto) < 1.0 /HPF (0.0-6.0) 09/19/17 12:40 Hyaline Casts 3 /LPF 09/19/17 12:40 Urine Mucus Few /HPF 09/19/17 12:40 Salicylates < 0.3 mg/dL (2.8-20.0) L 09/19/17 11:37 Urine Opiates Screen Presumptive negative 09/19/17 12:40 Urine Methadone Screen Presumptive negative 09/19/17 12:40 Acetaminophen < 15.0 ug/mL (10.0-30.0) 09/19/17 11:37 Ur Barbiturates Screen Presumptive negative 09/19/17 12:40 Ur Phencyclidine Scrn Presumptive negative 09/19/17 12:40 Ur Amphetamines Screen Presumptive negative 09/19/17 12:40 U Benzodiazepines Scrn Presumptive negative 09/19/17 12:40 Urine Cocaine Screen Presumptive negative 09/19/17 12:40 U Marijuana (THC) Screen Presumptive positive 09/19/17 12:40 Drugs of Abuse Note Disclamer 09/19/17 12:40 Plasma/Serum Alcohol < 0.01 gm% (0-0.07) 09/19/17 11:37
--- NOTE | 2017-09-22 16:20 | Progress Note ---
Assessment and Plan Acute on CKD - Worsening BUN/Cr. Review Renal u/s when ready or reorder if not done. Check Spot Urine Prot/Cr Rratio. Begin IVF & f/u BUN/Cr HTN - Adjust meds for better control Itching - Check Phos level, meanwhile give Benadryl Lytes - F/u mild Acidosis on IVF Subjective Date of service: 09/22/17 Interval history: C/o Itching all over Objective - Vital Signs Vital signs: Vital Signs - 12hr 09/22/17 09/22/17 09/22/17 04:36 08:23 09:40 Temperature 98.4 F 98.8 F Pulse Rate 72 78 Pulse Rate [ 78 From Monitor] Respiratory 18 20 20 Rate Blood Pressure 147/93 153/113 O2 Sat by Pulse 97 99 Oximetry 09/22/17 09/22/17 09/22/17 10:03 10:05 11:49 Temperature 97.7 F Pulse Rate 78 78 74 Pulse Rate [ From Monitor] Respiratory 20 Rate Blood Pressure 153/113 153/113 164/113 O2 Sat by Pulse 98 Oximetry 09/22/17 12:55 Temperature Pulse Rate 78 Pulse Rate [ From Monitor] Respiratory Rate Blood Pressure 164/113 O2 Sat by Pulse Oximetry - General Appearance General appearance: other (Awake & alert, Not in distress) EENT: PERRL Neck: no JVD Respiratory: Present: Clear to Ascultation Cardiology: regular, S1S2 Gastrointestinal: normal Integumentary: no rash Neurologic: no focal deficit Musculoskeletal: other (Dry skin with scratch rosales) - Lab 09/22/17 04:51 09/22/17 04:51 Most recent lab results Calcium 9.0 mg/dL (8.4-10.2) 09/22/17 04:51 Magnesium 2.30 mg/dL (1.7-2.3) 09/19/17 11:37
--- NOTE | 2017-09-22 17:04 | Event Note ---
Date: 09/22/17 No complaint of chest pain, shortness of breath or cough.O2 saturation 98% on room air. Chest xray not obtained. Recommend to get chest xray. Since patient not complaining any pulmonary symptoms, Signing off the case. If any pulmonary help needed, contact us.
[2017-09-22] MEDS: NACL 0.45% 1000 ML 1,000 ML IV SCH (18:35)
[2017-09-22] MEDS: BENADRYL PO SCH (21:18)
[2017-09-23] MEDS: APRESOLINE PO SCH ×3 (06:29→21:48)
[2017-09-23] MEDS: NACL 0.45% 1000 ML 1,000 ML IV SCH ×2 (06:30→21:48)
[2017-09-23 06:44] LABS: Hematocrit 29.6 % (35.5-45.6); Hemoglobin 9.7 gm/dl (11.8-15.2); Mean Corpuscular HGB Conc 33 % (32-34); Mean Corpuscular Hemoglobin 27 pg (28-32); Mean Corpuscular Volume 82 fl (84-94); Platelet Count 121 K/mm3 (140-440); Red Blood Count 3.61 M/mm3 (3.65-5.03); Red Cell Distribution Width 16.3 % (13.2-15.2)
[2017-09-23 07:06] LABS: Albumin 3.6 g/dL (3.9-5); Albumin/Globulin Ratio 0.9 %; Bilirubin,Total 0.5 mg/dL (0.1-1.2); Calcium 8.5 mg/dL (8.4-10.2); Chloride 105.3 mmol/L (98-107); Magnesium 2.3 mg/dL (1.7-2.3); Phosphorous 4.8 mg/dL (2.5-4.5); Potassium 3.9 mmol/L (3.6-5.0); Total Protein 7.6 g/dL (6.3-8.2)
[2017-09-23 08:12] LABS: Basophils % (Manual) 0 % (0.0-1.8); Blastocytes % (Manual) 0 %
[2017-09-23 08:14] LABS: Anisocytosis 1+; Elliptocytes Few
[2017-09-23 08:18] LABS: Diff Status Complete; Platelet Estimate Consistent w Auto
--- NOTE | 2017-09-23 11:51 | Ultrasound Report ---
RENAL ULTRASOUND: 09/23/17 10:15:00 CLINICAL: Chronic kidney disease. FINDINGS: High resolution ultrasound demonstrated normal nondilated renal collecting systems. Marked increased echogenicity of the kidneys. No renal mass, cyst or calculus. The right kidney measures 11.4 x 5.6 x 5.8-cm. The renal parenchyma measures 1.4-cm in thickness. The left kidney measures 11.2 x 5.6 x 4.7-cm. The renal parenchyma measures 1.4-cm in thickness. Normal moderately distended urinary bladder. IMPRESSION: Bilateral medical renal disease without hydronephrosis.
[2017-09-23] MEDS: KEPPRA PO SCH ×2 (12:23→21:49)
[2017-09-23] MEDS: PEPCID PO SCH ×2 (12:24→21:49)
[2017-09-23] MEDS: IMDUR PO SCH (12:24)
[2017-09-23] MEDS: COREG PO SCH ×2 (12:25→21:49)
[2017-09-23] MEDS: PROCARDIA XL PO SCH ×2 (12:26→21:50)
--- NOTE | 2017-09-23 12:40 | Progress Note ---
Assessment and Plan Acute on CKD - Improved BUN/Cr. Reviewed Renal u/s, No Nephromegaly (rt 11.4cm Lt 11.2cm), await Urine Prot/Cr Ratio still pending. Continue IVF & f/u BUN/Cr HTN - Improved, continue current meds Itching - Resolved on Benadryl, still f/u Phos levels Lytes - F/u mild Acidosis on IVF Subjective Date of service: 09/23/17 Interval history: Feeling better, Improved itching Objective - Vital Signs Vital signs: Vital Signs - 12hr 09/23/17 09/23/17 09/23/17 05:17 12:24 12:25 Temperature 98.3 F Pulse Rate 83 88 89 Respiratory 20 Rate Blood Pressure 122/63 O2 Sat by Pulse 97 Oximetry - General Appearance General appearance: other (Awake & alert) Neck: no JVD Respiratory: Present: Clear to Ascultation Cardiology: regular, S1S2 Gastrointestinal: normal Neurologic: no focal deficit - Lab 09/23/17 06:25 09/23/17 06:25 Most recent lab results Calcium 8.5 mg/dL (8.4-10.2) 09/23/17 06:25 Phosphorus 4.80 mg/dL (2.5-4.5) H 09/23/17 06:25 Magnesium 2.30 mg/dL (1.7-2.3) 09/23/17 06:25
[2017-09-23] MEDS: BENADRYL PO SCH (21:48)
[2017-09-24] MEDS: NACL 0.45% 1000 ML 1,000 ML IV SCH (05:12)
[2017-09-24] MEDS: APRESOLINE PO SCH (05:12)
--- NOTE | 2017-09-24 06:37 | Progress Note ---
Assessment and Plan 1. Acute kidney injury: Renal function is improving. 2. 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 3. Uncontrolled HTN: BP is better. Continue current meds. 4. Hypokalemia: Improved. 5. Proteinuria: Likely secondary to HIVAN. 6. HIV. 7. Encephalopathy. Follow up with me in 2 weeks. Subjective Date of service: 09/24/17 Interval history: Patient doing ok. Objective - Vital Signs Vital signs: Vital Signs - 12hr 09/23/17 09/23/17 09/24/17 20:30 23:49 04:53 Temperature 98.4 F 98.2 F 98.3 F Pulse Rate 80 83 76 Respiratory 18 18 20 Rate Blood Pressure 127/84 125/68 136/83 O2 Sat by Pulse 97 95 96 Oximetry - General Appearance General appearance: well-developed, well-nourished, appears stated age, other ( no distress) EENT: ATNC, PERRL, mucous membranes moist, hearing intact, vision intact Neck: supple Respiratory: Present: Clear to Ascultation Cardiology: regular, S1S2, no murmurs Gastrointestinal: normoactive bowel sounds, no tenderness, no distended Integumentary: no rash, warm and dry Neurologic: no focal deficit, no asterixis Musculoskeletal: other (no edema) Psychiatric: mood/affect appropriate, cooperative - Lab 09/23/17 06:25 09/24/17 06:41 Most recent lab results Calcium 8.5 mg/dL (8.4-10.2) 09/23/17 06:25 Phosphorus 4.80 mg/dL (2.5-4.5) H 09/23/17 06:25 Magnesium 2.30 mg/dL (1.7-2.3) 09/23/17 06:25
[2017-09-24 07:30] LABS: Calcium 8.5 mg/dL (8.4-10.2); Chloride 105.5 mmol/L (98-107); Phosphorous 4.3 mg/dL (2.5-4.5); Potassium 4.2 mmol/L (3.6-5.0)
[2017-09-24] MEDS: COREG PO SCH (09:39)
[2017-09-24] MEDS: IMDUR PO SCH (09:39)
[2017-09-24] MEDS: PEPCID PO SCH (09:39)
[2017-09-24] MEDS: PROCARDIA XL PO SCH (09:39)
[2017-09-24] MEDS: KEPPRA PO SCH (09:39)
--- NOTE | 2017-09-24 11:11 | Discharge Summary ---
Providers - Providers Date of Admission: 09/19/17 15:08 Attending physician: BRENDAN SHARMA MD 09/19/17 21:37 Consult to Physician [CONS] Routine Consulting Provider: SELVIN HARDEN Reason For Exam: hypertensive emergency Place consult to:: Dr. Harden Notified:: Elisabeth LAL Phone number called:: Was contact made?: Yes If yes, spoke with:: Anastasia service Time called:: 10:35 09/19/17 21:50 Consult to Physician [CONS] Routine Consulting Provider: HERNANDO MOORE Reason For Exam: ckd Place consult to:: Dr. Moore Notified:: Elisabeth LAL Was contact made?: Yes If yes, spoke with:: Dr. Moore Time called:: 08:38 Primary care physician: RONEY ALBERT Hospitalization Reason for admission: seizure disorder, hypertensive encephalopathy Condition: Stable Pertinent studies: Renal ultrasound Bilateral medical renal disease without hydronephrosis CT head - No acute intracranial findings Hospital course: Admission HPI History of present illness:37-year-old -[place] male with past medical history of hypertension, DYE, chronic kidney disease and seizures comes in for altered sensorium. Patient apparently passed out for a few minutes. Patient used marijuana this a.m. Patient has not been taking blood pressure medications for a long time. No fever no chills. Slight shortness of breath present. No chest pain. Feels lightheaded. Shortness of breath on minimal exertion present. Patient was admitted to the floor and he was managed for hypertensive urgency , CKD, seizures, marijuana abuse, HIV. Patient's blood pressure was controlled , nephrology was consulted and recommended outpatient follow-up for CKD. The patient has only one episode of seizure and it is provoked seizure he doesn't need long-term antiseizure medications. Patient was counseled about drug abuse , medication adherence and patient verbalized understood it. And was advised to follow-up with ID for the management of HIV. Patient was hemodynamically stable at the time of discharge. Appropriate medication prescriptions were given by the time of discharge. Disposition: DC-01 TO HOME OR SELFCARE Time spent for discharge: 31 minutes - Discharge Diagnoses (1) Hypertensive emergency Status: Acute (2) Hypertensive encephalopathy Status: Acute (3) Hypokalemia Status: Acute (4) Seizure Status: Acute (5) HIV (human immunodeficiency virus infection) Status: Chronic (6) ARF (acute renal failure) with tubular necrosis Status: Acute Core Measure Documentation - Palliative Care Palliative Care/ Comfort Measures: Not Applicable - Core Measures Any of the following diagnoses?: none Exam - Physical Exam Narrative exam: Not in cardiopulmonary distress. The patient appeared well nourished and normally developed. Vital signs as documented. Head exam is unremarkable. No scleral icterus . Neck is without jugular venous distension, thyromegaly, or carotid bruits. Lungs are clear to auscultation. Cardiac exam reveals regular rate and Rhythm. First and second heart sounds normal. No murmurs, rubs or gallops. Abdominal exam reveals normal bowel sounds, no masses, no organomegaly and no aortic enlargement. Extremities are nonedematous and both femoral and pedal pulses are normal. OPERATIONS OFFICER AFLOAT: Alert and oriented 3. No focal weakness. - Constitutional Vitals: Temp Pulse Resp BP Pulse Ox 97.6 F 82 20 142/76 100 09/24/17 11:02 09/24/17 11:02 09/24/17 11:02 09/24/17 11:02 09/24/17 11:02 Plan Activity: no restrictions Weight Bearing Status: Full Weight Bearing Diet: renal Follow up with: RONEY ALBERT MD [Primary Care Provider] - 7 Days HERNANDO MOORE MD [Staff Physician] - 14 Days Prescriptions: Carvedilol [Coreg] 25 mg PO BID #60 tablet ISOSORBIDE MONOnitrate [Imdur ER] 30 mg PO QDAY #30 tablet NIFEdipine XL [Procardia Xl] 90 mg PO QDAY #30 tablet
[2017-09-24 12:31] VITALS: BP 153/99
== END 2017-09-24 13:12 | disposition home or self-care (01) | DRG 77 ==
LOC: ED 10:51 → CC1 15:08 → 4A 09-20 06:54
PROVIDERS: ADMIT Internal Medicine; ATTEND Internal Medicine
DX: I67.4 Hypertensive encephalopathy (principal); N17.0 Acute kidney failure with tubular necrosis; I16.1 Hypertensive emergency; N18.4 Chronic kidney disease, stage 4 (severe); M62.82 Rhabdomyolysis; K21.9 Gastro-esophageal reflux disease without esophagitis; I12.9 Hypertensive chronic kidney disease with stage 1 through stage 4 chronic kidney disease, or unspecified chronic kidney disease; F12.10 Cannabis abuse, uncomplicated; G40.909 Epilepsy, unspecified, not intractable, without status epilepticus; E87.6 Hypokalemia; R80.9 Proteinuria, unspecified; D69.6 Thrombocytopenia, unspecified; Z79.899 Other long term (current) drug therapy; Z82.49 Family history of ischemic heart disease and other diseases of the circulatory system
CPT/HCPCS: 36415; 70450; 76770; 80048; 80053; 80307; 80320; 81001; 82140; 82550; 82962; 83036; 83735; 83970; 84100; 84443; 85007; 85025; 85027; 93005; 93010; 96365; 96375; G0480; J0360; J1953; J2060; J2250; J7050